=== PATIENT | female | born 1940 | race Caucasian/White ===

== ENCOUNTER → 2016-06-06 | Outpatient (CLI) | payer OTHER ==
--- NOTE | 2016-06-06 13:53 | MA ---
Screening Digital Mammogram With iCAD Analysis Clinical Indications: Routine screening. Technique: Standard cephalocaudal and mediolateral oblique projections were obtained. This examinatio n was processed by the iCAD computer aided detection system. Comparison: December 2011, March 2009, January 2008, January 2007 . Breast density: A; Fatty. Findings: CAD was reviewed. No masses, suspicious calcifications or other signs of malignancy are id entified. There has been no significant change in the appearance of either breast. Impression: Negative mammogram. BI-RADS 1. Recommendation: Routine mammographic screening in one year. [facility] will send a result letter to the patient. Negative mammography should not preclude additional workup of a clinically suspicious finding. The patient's information is entered into a reminder system with a target due date for her next mammo gram.
== END ==
LOC: FIMAGING 09:54
PROVIDERS: ATTEND Nurse Practitioner Family
DX: Z12.31 Encounter for screening mammogram for malignant neoplasm of breast (principal)
CPT/HCPCS: G0202

== ENCOUNTER 2017-09-19 15:35 | Inpatient (IN) | payer OTHER ==
[2017-09-19] MEDS ORDERED: NS 1,000 ML IV ONE (15:57)
--- NOTE | 2017-09-19 16:11 | EDPHY ---
H & P Stated Complaint: dx uti/increasing weakness Time Seen by Provider: 09/19/17 15:52 HPI/ROS: CHIEF COMPLAINT: Generalized weakness, urinary tract infection HISTORY OF PRESENT ILLNESS: 77-year-old female presents with generalized weakness and urinary tract infection. Onset of groin pain yesterday morning. The groin pain was moderate and did not change with urination. No dysuria or urinary frequency. She saw her primary care physician yesterday, who diagnosed urinary tract infection and placed her on Macrobid. She has taken 2 doses of Macrobid. The groin pain has resolved. Onset of vomiting last night and gradually increasing generalized weakness today. Associated with diffuse myalgias. No known fever. REVIEW OF SYSTEMS: complete 10 point ROS negative except at noted in the HPI - Personal History Current Tetanus/Diphtheria Vaccine: Yes Tetanus Vaccine Date: <10 YRS - Medical/Surgical History Hx Asthma: Yes Hx Chronic Respiratory Disease: No Hx Diabetes: No Hx Cardiac Disease: No Hx Renal Disease: No Hx Cirrhosis: No Hx Alcoholism: No Hx HIV/AIDS: No Hx Splenectomy or Spleen Trauma: No Other PMH: medical depression, extra heart beats. surgery tonsillectomy, left knee replacement, lumbar fusion, hysterectomy - Social History Smoking Status: Never smoked - Physical Exam Exam: General Appearance: alert, nontoxic-appearing Eyes: Pupils equal and round, no conjunctival injection ENT, Mouth: Mucous membranes moist Neck: Normal inspection Respiratory: Lungs are clear to auscultation Cardiovascular: Regular rate and rhythm Gastrointestinal: Abdomen is soft, left lower quadrant tenderness Neurological: A&O, nonfocal exam Skin: Warm and dry, no rash Extremities: Normal inspection Psychiatric: Mood and affect normal Constitutional: Initial Vital Signs Temperature (C) 36.6 C 09/19/17 15:40 Heart Rate 90 09/19/17 15:40 Respiratory Rate 18 09/19/17 15:40 Blood Pressure 92/65 L 09/19/17 15:40 O2 Sat (%) 95 09/19/17 15:40 O2 Delivery Mode Room Air Allergies/Adverse Reactions: Sulfa (Sulfonamide Antibiotics) Allergy (Unknown, Verified 09/19/17 15:36) Home Medications: Medication Instructions Recorded Atenolol [Tenormin 25 mg (*)] 25 mg PO HS 09/19/17 Diclofenac Sodium 1% [Voltaren Gel 1 ilene TP TID PRN 09/19/17 (*)] Ezetimibe [Zetia 10 MG (*)] 10 mg PO DAILY 09/19/17 Gemfibrozil [Lopid 600 MG (*)] 600 mg PO BIDAC 09/19/17 Nitrofurantoin Macrocrystal 100 mg PO BID 09/19/17 [Nitrofurantoin] Sertraline HCl [Zoloft 50mg (*)] 50 mg PO DAILY 09/19/17 buPROPion SR [Wellbutrin 100mg SR 100 mg PO DAILY 09/19/17 (*)] Medical Decision Making - Diagnostics Imaging Results: Imaging Impressions Abdomen/Pelvis CT 09/19/17 16:13 Impression: 1. Mild, uncomplicated acute sigmoid diverticulitis. 2. Nonobstructive cholelithiasis. Findings were communicated by telephone with Dr. VINCENT SMITH at 09/19/2017 17 :32 ED Course/Re-evaluation: This patient presents with left lower quadrant tenderness and generalized weakness. Previously diagnosed with urinary tract infection yesterday, on Macrobid. Old medical record reviewed and no prior urinalysis in our computer system. Given her clinical presentation, I am suspicious that she has acute diverticulitis. CT scan of the abdomen and pelvis ordered. IV normal saline 500 mL given because of dehydration and borderline hypotension. Does not meet SIRS criteria (positive criteria suspected infection and leukocytosis only), but HR borderline (90) at presentation. Lactate ordered and is 2.4. IVF per the sepsis protocol initiated. CT scan of the abdomen and pelvis read by the radiologist reveals sigmoid diverticulitis. Urinalysis is also consistent with urinary tract infection. Urine culture sent. Levaquin and Flagyl IV given. VS stable throughout. The hospitalist service was consulted for admission. Differential Diagnosis: Differential diagnosis includes though it is not limited to appendicitis, cholecystitis, diverticulitis, pyelonephritis, bowel perforation, small bowel obstruction. - Data Points Laboratory Results: Laboratory Results 09/19/17 16:00 09/19/17 16:00 09/19/17 09/19/17 09/19/17 16:32 16:00 16:00 WBC 25.45 10^3/uL H 10^3/uL (3.80-9.50) RBC 4.72 10^6/uL 10^6/uL (4.18-5.33) Hgb 14.4 g/dL g/dL (12.6-16.3) Hct 44.1 % % (38.0-47.0) MCV 93.4 fL fL (81.5-99.8) MCH 30.5 pg pg (27.9-34.1) MCHC 32.7 g/dL g/dL (32.4-36.7) RDW 15.7 % H % (11.5-15.2) Plt Count 224 10^3/uL 10^3/uL (150-400) MPV 10.2 fL fL (8.7-11.7) Neut % (Auto) Not Reported Lymph % (Auto) Not Reported Mora % (Auto) Not Reported Eos % (Auto) Not Reported Baso % (Auto) Not Reported Nucleat RBC Rel Count Not Reported Absolute Neuts (auto) Not Reported Absolute Lymphs (auto) Not Reported Absolute Monos (auto) Not Reported Absolute Eos (auto) Not Reported Absolute Basos (auto) Not Reported Absolute Nucleated RBC Not Reported Immature Gran % Not Reported Seg Neutrophils % 72.5 % % Band Neutrophils % 20.0 % % Lymphocytes % 3.5 % % Monocytes % 3.0 % % Eosinophils % 0 % % Basophils % 0 % % Metamyelocytes % 1.0 % % Myelocytes % 0 % % Promyelocytes % 0 % % Blast Cells % 0 % % Immature Gran # Not Reported Absolute Seg Neuts 18.45 10^/uL H 10^/uL (1.70-6.50) Absolute Band Neuts 5.09 10^3/uL H 10^3/uL (0.00-0.70) Absolute Lymphocytes 0.89 10^3/uL L 10^3/uL (1.00-3.00) Absolute Monocytes 0.76 10^3/uL 10^3/uL (0.30-0.80) Absolute Eosinophils 0.00 10^3/uL L 10^3/uL (0.03-0.40) Absolute Basophils 0.00 10^3/uL L 10^3/uL (0.02-0.10) Absolute Metamyelocyte 0.25 10^3/mL H 10^3/mL (0.00-0.00) Absolute Myelocytes 0.00 10^3/mL 10^3/mL (0.00-0.00) Absolute Promyelocytes 0.00 10^3/uL 10^3/uL (0.00-0.00) Absolute Plasma Cells 0.00 10^3/uL 10^3/uL (0.00-0.00) Absolute Blast Cells 0.00 10^3/uL 10^3/uL (0.00-0.00) Plasma Cells % 0 % % Platelet Estimate ADEQUATE (ADEQ) VBG Lactic Acid Sodium 138 mEq/L mEq/L (135-145) Potassium 4.9 mEq/L mEq/L (3.3-5.0) Chloride 106 mEq/L mEq/L (97-110) Carbon Dioxide 17 mEq/l L mEq/l (22-31) Anion Gap 15 mEq/L mEq/L (8-16) BUN 48 mg/dL H mg/dL (7-23) Creatinine 1.8 mg/dL H mg/dL (0.6-1.0) Estimated GFR 27 Glucose 123 mg/dL H mg/dL (70-100) Calcium 8.6 mg/dL mg/dL (8.5-10.4) Urine Color KATHERYN Urine Appearance TURBID Urine pH 5.0 (5.0-7.5) Ur Specific [place] 1.012 (1.002-1.030) Urine Protein 2+ H (NEGATIVE) Urine Ketones NEGATIVE (NEGATIVE) Urine Blood 2+ H (NEGATIVE) Urine Nitrate POSITIVE H (NEGATIVE) Urine Bilirubin NEGATIVE (NEGATIVE) Urine Urobilinogen NEGATIVE EU EU (0.2-1.0) Ur Leukocyte Esterase 3+ H (NEGATIVE) Urine RBC 25-50 /hpf H /hpf (0-3) Urine WBC 50-182 /hpf H /hpf (0-3) Ur Epithelial Cells NONE SEEN /lpf /lpf (NONE-1+) Urine Bacteria 3+ /hpf H /hpf (NONE SEEN) Urine Glucose NEGATIVE (NEGATIVE) 09/19/17 16:00 WBC RBC Hgb Hct MCV MCH MCHC RDW Plt Count MPV Neut % (Auto) Lymph % (Auto) Mora % (Auto) Eos % (Auto) Baso % (Auto) Nucleat RBC Rel Count Absolute Neuts (auto) Absolute Lymphs (auto) Absolute Monos (auto) Absolute Eos (auto) Absolute Basos (auto) Absolute Nucleated RBC Immature Gran % Seg Neutrophils % Band Neutrophils % Lymphocytes % Monocytes % Eosinophils % Basophils % Metamyelocytes % Myelocytes % Promyelocytes % Blast Cells % Immature Gran # Absolute Seg Neuts Absolute Band Neuts Absolute Lymphocytes Absolute Monocytes Absolute Eosinophils Absolute Basophils Absolute Metamyelocyte Absolute Myelocytes Absolute Promyelocytes Absolute Plasma Cells Absolute Blast Cells Plasma Cells % Platelet Estimate VBG Lactic Acid 2.3 mmol/L H mmol/L (0.7-2.1) Sodium Potassium Chloride Carbon Dioxide Anion Gap BUN Creatinine Estimated GFR Glucose Calcium Urine Color Urine Appearance Urine pH Ur Specific [place] Urine Protein Urine Ketones Urine Blood Urine Nitrate Urine Bilirubin Urine Urobilinogen Ur Leukocyte Esterase Urine RBC Urine WBC Ur Epithelial Cells Urine Bacteria Urine Glucose Medications Given: Acetaminophen (Tylenol) 650 mg PO Q4HRS PRN PRN Reason: Pain, Mild/Fever, Can Take PO Stop: 03/18/18 17:56 Last Admin: 09/19/17 19:52 Dose: 650 mg Metronidazole/Sodium Chloride (Flagyl 500 Mg (Premix)) 100 mls @ 100 mls/hr IV Q8HRS ALVARO PRN Reason: Protocol Stop: 10/19/17 21:59 Last Admin: 09/19/17 21:06 Dose: 100 mls Sodium Chloride (Ns) 1,000 mls @ 150 mls/hr IV CONT ALVARO Stop: 03/18/18 17:59 Last Admin: 09/19/17 21:03 Dose: 700 mls Discontinued Medications Sodium Chloride (Ns) 1,000 mls @ 0 mls/hr IV ONCE ONE; Wide Open PRN Reason: Protocol Stop: 09/19/17 15:58 Last Admin: 09/19/17 16:19 Dose: 1,000 mls Sodium Chloride (Ns) 2,300 mls @ 383.3333 mls/hr 30 ml/kg infuse over 6 hr ( 2300 ml) IV EDNOW ONE PRN Reason: Protocol Stop: 09/19/17 22:42 Last Admin: 09/19/17 16:54 Dose: 2,300 mls Levofloxacin/Dextrose (Levaquin 750 Mg (Premix)) 150 mls @ 100 mls/hr IV EDNOW ONE PRN Reason: Protocol Stop: 09/19/17 19:03 Last Admin: 09/19/17 18:50 Dose: 150 mls Metronidazole/Sodium Chloride (Flagyl 500 Mg (Premix)) 100 mls @ 100 mls/hr IV EDNOW ONE PRN Reason: Protocol Stop: 09/19/17 18:33 Last Admin: 09/19/17 17:42 Dose: 100 mls Departure - Departure Disposition: [facility] Clinical Impression: Diverticulitis Condition: Fair
[2017-09-19 16:19] LABS: PLATELET COUNT 224 10^3/uL (150-400)
[2017-09-19] MEDS ORDERED: NS 2,300 ML IV ONE (16:43)
[2017-09-19] MEDS ORDERED: IOPAMIDOL (ISOVUE-300) 100 ML BTL ONE (16:47)
[2017-09-19] MEDS ORDERED: ONDANSETRON 4 MG/2 ML VIAL IVP PRN (17:57)
[2017-09-19] MEDS ORDERED: PROMETHAZINE HCL 25 MG TAB PO PRN (17:57)
[2017-09-19] MEDS ORDERED: PROMETHAZINE HCL 25 MG/ML INJ IVP PRN (17:57)
[2017-09-19] MEDS ORDERED: ONDANSETRON DISINTEGRATING 4 MG TAB PO PRN (17:57)
[2017-09-19] MEDS ORDERED: ACETAMINOPHEN 325 MG TAB PO PRN (17:57)
[2017-09-19] MEDS ORDERED: HYDROmorphONE/DILAUDID 1 MG/ML INJ IVP PRN (17:57)
[2017-09-19] MEDS: NS 1,000 ML IV SCH (21:03)
--- NOTE | 2017-09-19 23:01 | PDGENHP ---
History and Physical - Chief Complaint Acute abdominal pain - History of Present Illness Primary care provider: Dr. Kenia Goldstein Primary orthopedist: Dr. Curry HPI: 77-year-old female presenting with acute abdominal pain characterized as sharp, located in the left lower quadrant with associated vomiting, subjective fever, generalized weakness, chills, diffuse myalgias, with onset of symptoms 3 days prior to this presentation and duration persistent worsening thereafter. The patient reports that she sought medical attention her primary care provider office, had a urinalysis and urine culture obtained, and was prescribed Macrobid. She continued to experience her symptoms despite taking 2 days of the Macrobid. When she presented back at her primary care provider office for reassessment, they sent her immediately to the emergency department. Patient reports that she has never experienced similar symptoms in her life. She denies any urinary symptoms. She reports that the pain has been significantly alleviated by the Dilaudid received in the emergency department. She denies any recent change in her bowel movements. History Information - Allergies/Home Medication List Allergies/Adverse Reactions: Sulfa (Sulfonamide Antibiotics) Allergy (Unknown, Verified 09/19/17 15:36) Home Medications: Atenolol [Tenormin 25 mg (*)] 25 mg PO HS 09/19/17 [Last Taken 09/18/17] Diclofenac Sodium 1% [Voltaren Gel (*)] 1 ilene TP TID PRN 09/19/17 [Last Taken Unknown] Ezetimibe [Zetia 10 MG (*)] 10 mg PO DAILY 09/19/17 [Last Taken 09/18/17] Gemfibrozil [Lopid 600 MG (*)] 600 mg PO BIDAC 09/19/17 [Last Taken 09/18/17] Nitrofurantoin Macrocrystal [Nitrofurantoin] 100 mg PO BID 09/19/17 [Last Taken 09/18/17] Sertraline HCl [Zoloft 50mg (*)] 50 mg PO DAILY 09/19/17 [Last Taken 09/18/17] buPROPion SR [Wellbutrin 100mg SR (*)] 100 mg PO DAILY 09/19/17 [Last Taken ] I have personally reviewed and updated: family history, medical history, social history, surgical history - Past Medical History no pertinent PMH - Surgical History Additional surgical history: Left knee arthroscopy in 2010. L3-L5 lumbar surgery. Most recent colonoscopy 10 years ago - Family History Additional family history: No family history of colon cancer, no family history of venous thromboembolism - Social History Smoking Status: Never smoked Alcohol Use: None Drug Use: None Additional social history: Independent in her ADLs Review of Systems Review of Systems: ROS: 10pt was reviewed & negative except for what was stated in HPI & below Constitutional: Reports: chills, fever, malaise, weakness Gastrointestinal: Reports: vomitting, abdominal pain Muscolosketal: Reports: muscle pain Physical Exam Physical Exam: Temp Pulse Resp BP Pulse Ox 36.6 C 114 H 18 105/54 L 93 09/19/17 22:28 09/19/17 22:28 09/19/17 22:28 09/19/17 22:28 09/19/17 22:28 Constitutional: no apparent distress, appears nourished, not in pain, uncomfortable Eyes: PERRL, anicteric sclera, EOMI Ears, Nose, Mouth, Throat: moist mucous membranes, hearing normal, ears appear normal, no oral mucosal ulcers Cardiovascular: regular rate and rhythym, no murmur, rub, or gallop, No edema Respiratory: no respiratory distress, no rales or rhonchi, clear to auscultation Gastrointestinal: normoactive bowel sounds, tenderness (Left lower quadrant), other (Soft abdomen), No guarding, No distension Skin: warm, No abrasion, No rash Neurologic: AAOx3, sensation intact bilaterally, No weakness Psychiatric: interacting appropriately, not anxious, not encephalopathic, thought process linear Lab Data & Imaging Review 09/19/17 16:00 09/19/17 16:00 WBC 25.45 10^3/uL (3.80-9.50) H 09/19/17 16:00 RBC 4.72 10^6/uL (4.18-5.33) 09/19/17 16:00 Hgb 14.4 g/dL (12.6-16.3) 09/19/17 16:00 Hct 44.1 % (38.0-47.0) 09/19/17 16:00 MCV 93.4 fL (81.5-99.8) 09/19/17 16:00 MCH 30.5 pg (27.9-34.1) 09/19/17 16:00 MCHC 32.7 g/dL (32.4-36.7) 09/19/17 16:00 RDW 15.7 % (11.5-15.2) H 09/19/17 16:00 Plt Count 224 10^3/uL (150-400) 09/19/17 16:00 MPV 10.2 fL (8.7-11.7) 09/19/17 16:00 Neut % (Auto) Not Reported 09/19/17 16:00 Lymph % (Auto) Not Reported 09/19/17 16:00 Nolan % (Auto) Not Reported 09/19/17 16:00 Eos % (Auto) Not Reported 09/19/17 16:00 Baso % (Auto) Not Reported 09/19/17 16:00 Nucleat RBC Rel Count Not Reported 09/19/17 16:00 Absolute Neuts (auto) Not Reported 09/19/17 16:00 Absolute Lymphs (auto) Not Reported 09/19/17 16:00 Absolute Monos (auto) Not Reported 09/19/17 16:00 Absolute Eos (auto) Not Reported 09/19/17 16:00 Absolute Basos (auto) Not Reported 09/19/17 16:00 Absolute Nucleated RBC Not Reported 09/19/17 16:00 Immature Gran % Not Reported 09/19/17 16:00 Seg Neutrophils % 72.5 % 09/19/17 16:00 Band Neutrophils % 20.0 % 09/19/17 16:00 Lymphocytes % 3.5 % 09/19/17 16:00 Monocytes % 3.0 % 09/19/17 16:00 Eosinophils % 0 % 09/19/17 16:00 Basophils % 0 % 09/19/17 16:00 Metamyelocytes % 1.0 % 09/19/17 16:00 Myelocytes % 0 % 09/19/17 16:00 Promyelocytes % 0 % 09/19/17 16:00 Blast Cells % 0 % 09/19/17 16:00 Immature Gran # Not Reported 09/19/17 16:00 Absolute Seg Neuts 18.45 10^/uL (1.70-6.50) H 09/19/17 16:00 Absolute Band Neuts 5.09 10^3/uL (0.00-0.70) H 09/19/17 16:00 Absolute Lymphocytes 0.89 10^3/uL (1.00-3.00) L 09/19/17 16:00 Absolute Monocytes 0.76 10^3/uL (0.30-0.80) 09/19/17 16:00 Absolute Eosinophils 0.00 10^3/uL (0.03-0.40) L 09/19/17 16:00 Absolute Basophils 0.00 10^3/uL (0.02-0.10) L 09/19/17 16:00 Absolute Metamyelocyte 0.25 10^3/mL (0.00-0.00) H 09/19/17 16:00 Absolute Myelocytes 0.00 10^3/mL (0.00-0.00) 09/19/17 16:00 Absolute Promyelocytes 0.00 10^3/uL (0.00-0.00) 09/19/17 16:00 Absolute Plasma Cells 0.00 10^3/uL (0.00-0.00) 09/19/17 16:00 Absolute Blast Cells 0.00 10^3/uL (0.00-0.00) 09/19/17 16:00 Plasma Cells % 0 % 09/19/17 16:00 Platelet Estimate ADEQUATE (ADEQ) 09/19/17 16:00 VBG Lactic Acid 1.1 mmol/L (0.7-2.1) 09/19/17 18:22 Sodium 138 mEq/L (135-145) 09/19/17 16:00 Potassium 4.9 mEq/L (3.3-5.0) 09/19/17 16:00 Chloride 106 mEq/L (97-110) 09/19/17 16:00 Carbon Dioxide 17 mEq/l (22-31) L 09/19/17 16:00 Anion Gap 15 mEq/L (8-16) 09/19/17 16:00 BUN 48 mg/dL (7-23) H 09/19/17 16:00 Creatinine 1.8 mg/dL (0.6-1.0) H 09/19/17 16:00 Estimated GFR 27 09/19/17 16:00 Glucose 123 mg/dL (70-100) H 09/19/17 16:00 Calcium 8.6 mg/dL (8.5-10.4) 09/19/17 16:00 Urine Color KATHERYN 09/19/17 16:32 Urine Appearance TURBID 09/19/17 16:32 Urine pH 5.0 (5.0-7.5) 09/19/17 16:32 Ur Specific [place] 1.012 (1.002-1.030) 09/19/17 16:32 Urine Protein 2+ (NEGATIVE) H 09/19/17 16:32 Urine Ketones NEGATIVE (NEGATIVE) 09/19/17 16:32 Urine Blood 2+ (NEGATIVE) H 09/19/17 16:32 Urine Nitrate POSITIVE (NEGATIVE) H 09/19/17 16:32 Urine Bilirubin NEGATIVE (NEGATIVE) 09/19/17 16:32 Urine Urobilinogen NEGATIVE EU (0.2-1.0) 09/19/17 16:32 Ur Leukocyte Esterase 3+ (NEGATIVE) H 09/19/17 16:32 Urine RBC 25-50 /hpf (0-3) H 09/19/17 16:32 Urine WBC 50-182 /hpf (0-3) H 09/19/17 16:32 Ur Epithelial Cells NONE SEEN /lpf (NONE-1+) 09/19/17 16:32 Urine Bacteria 3+ /hpf (NONE SEEN) H 09/19/17 16:32 Urine Glucose NEGATIVE (NEGATIVE) 09/19/17 16:32 Visualized and Interpreted imaging results: Yes Interpretation: CT of the abdomen demonstrating sigmoid diverticulitis without any perforation Assessment & Plan Assessment: 77-year-old female presenting with acute diverticulitis Plan: 1. Acute diverticulitis. New problem this provider, further workup indicated. Evidenced by sigmoid diverticulitis on CT scan plus leukocytosis plus lactic acidosis plus abdominal symptoms, 1st presentation for patient -get GI PCR panel to rule out C diff as a potentiate and cause given her recent Macrobid exposure -discussed with Dr. Belem Barreto, she has reported to me that the patient will receive IV levofloxacin and metronidazole in the emergency department, continue -continue with IV fluids, bowel rest, sips and chips only -advance diet to clear liquids tomorrow if hungry and improving -supportive care with IV and oral pain medications, antiemetics -recommend outpatient follow up with Gastroenterology for colonoscopy after acute episode resolved -currently does not have a surgical abdomen, if patient's condition worsens, consult General surgery 2. Metabolic acidosis. Acute, secondary to lactic acid, given IV fluids, monitor 3. Acute kidney injury. Secondary to hypovolemia in the setting of above, no previous history of renal impairment, give normal saline, monitor strict I&Os, monitor daily creatinine level 4. Hypotension. Acute, secondary to hypovolemia in the setting of above, resolved with IV fluids 5. Suspected asymptomatic bacturia. Positive urinalysis, urine culture sent, results currently pending, no urinary symptoms -suspect the patient's abdominal pain was actually secondary to her acute diverticulitis and not a urinary tract infection -that being said, the patient is concomitant Keanu covered with antibiotic for above Diet. NPO, sips and chips, IV fluids Prophylaxis. High risk patient, heparin subcu Code. Full per patient, is MD HARDIN Disposition. Anticipated discharge uncertain this time, anticipated length stay is greater than 48 hr for reasonable medical necessity including acute diverticulitis complicated by high risk comorbid acute kidney injury, metabolic acidosis.
[2017-09-20] MEDS ORDERED: MELATONIN 3 MG TAB PO PRN (00:53)
[2017-09-20] MEDS: NS 1,000 ML IV SCH (02:14)
[2017-09-20] MEDS ORDERED: NS BOLUS 500 ML IV ONE (05:00)
[2017-09-20] MEDS: HEPARIN 5,000 UNIT/0.5 ML INJ SC SCH ×3 (05:25→21:47)
[2017-09-20 06:48] LABS: PLATELET COUNT 155 10^3/uL (150-400)
[2017-09-20] MEDS ORDERED: ALTEPLASE 2 MG VIAL IVP PRN (08:57)
[2017-09-20] MEDS ORDERED: 1/2 NS 1,000 ML IV SCH (09:00)
--- NOTE | 2017-09-20 09:03 | HOSPPROG ---
Hospitalist Progress Note Assessment/Plan: # sigmoid diverticulitis - abd exam reassuring today; low threshold to involve surgery - cont rocephin, flagyl - GI panel pending # e. coli bacteremia - suspect d/t diverticulitis; also has bacteruria however - change levaquin to rocephin pending e. coli sens - cont flagyl - will consult ID # severe sepsis (fever at home, leuk) d/t diverticulitis with SHAQUILLE - still with borderline BPs - will place PICC in case she worsens # SHAQUILLE - likely ATN given her lack of response to IVF - cont IVF; follow her lytes closely # NAGMA - likely d/t SHAQUILLE; - recheck lactate - change to 1/2 NS - recheck BMP at noon - if worsening will likely consult renal and start bicarb gtt # depr - zoloft, wellbutrin # HLD - gemfibrozil, ezitimibe # dvt ppx - SQH Subjective: slightly confused; abd pain better Objective: Vital Signs Temp Pulse Resp BP Pulse Ox 36.4 C 91 28 H 104/67 95 09/20/17 07:16 09/20/17 07:16 09/20/17 07:16 09/20/17 07:16 09/20/17 07:16 Laboratory Results 09/20/17 04:20 09/20/17 04:20 09/19/17 09/20/17 09/21/17 05:59 05:59 05:59 Intake Total [address] reviewed - Physical Exam Constitutional: uncomfortable Cardiovascular: regular rate and rhythym, no murmur, rub, or gallop Respiratory: no respiratory distress, no rales or rhonchi, clear to auscultation Gastrointestinal: soft, non-tender abdomen, no palpable masses, No guarding, No rebound, No distension ICD10 Worksheet Patient Problems: Problems Problem Status Onset Diverticulitis Acute
[2017-09-20] MEDS: GEMFIBROZIL 600 MG TAB PO SCH (10:05)
[2017-09-20] MEDS: EZETIMIBE 10 MG TAB PO SCH (10:06)
[2017-09-20] MEDS: buPROPion SR 100 MG TAB PO SCH (10:07)
[2017-09-20] MEDS: SERTRALINE HCL 50 MG TAB PO SCH (10:08)
--- NOTE | 2017-09-20 10:17 | ASMTCASEMG ---
Living Arrangements What is your living Answers: With Spouse arrangement? Who do you live with? Type Of Residence What kind of residence do Answers: House you live in? Discharge Plan Comments Coordination Status Comments Notes: Pt is a 77 y/o female admitted for diverticulitis. Needs are TBD at this time. Therapies have been ordered and pending. CM to follow. Plan: TBD Date Signed: 09/20/2017 10:16 AM Electronically Signed By:GUSTAVO Carrillo
--- NOTE | 2017-09-20 10:34 | PDMN ---
Medical Necessity Medical necessity: Pt meets IP criteria per MD; est los >2 mn for eval/tx of acute diverticulitis w/metabolic acidosis, acute kidney injury, hypotension & suspected bacturia; admit for further workup/monitoring, IV abx, IVFs, IV pain meds & therapies; per H&P & order 09/19/17
[2017-09-20] MEDS ORDERED: SODIUM BICARBONATE 75 MEQ in 1/2 NS 1,000 ML IV SCH (13:45)
[2017-09-20] MEDS ORDERED: SODIUM BICARBONATE 150 MEQ in D5W 1,000 ML IV SCH (18:09)
--- NOTE | 2017-09-20 18:12 | PDCONSULT ---
[employer] Teacher Note: NEPHROLOGY CONSULT: CC: abdominal pain, fevers/chills, N/V HPI: 77 yo female with PMH significant for hypertension admitted with severe sepsis c/b SHAQUILLE. Nephrology consulted for evaluation and management of SHAQUILLE. 3 days prior to admission, patient developed acute onset of LLQ abdominal pain, N/V, subjective fevers/chills, generalized weakness, and malaise. Patient presented to PCP who checked UA and started Macrobid. Patient proceeded to get worse, re-presented to PCP and was sent to ED. Patient also reports some shortness of breath at home, along with bilateral flank pain (R>L), lightheadedness with standing, L ear pain, and headache in addition to symptoms described above. She had decreased PO intake and decreased urine output. She denies dysuria, chest pain, diarrhea, and blood in stools. She reports taking a total of 2 Advil over the past 2 days. She is not on diuretics or HEBER/ARB. She denies taking herbal medications. Patient hypotensive down to 81/59 at lowest. Blood cultures were sent, now growing GNR. UA consistent with UTI and urine culture growing GNR. CT abd/ pelvis without contrast consistent with acute sigmoid diverticulitis, kidneys equal size with mild atrophy L cortical cyst. Patient started on antibiotics and given IVF (3L overnight on the night of admission). Patient initially oliguric, but has made 800mL urine so far today. Patient currently reports ongoing mild shortness of breath. Patient feels it might be slightly worse than on admission, but her nurse reports that she looks less short of breath than on admission. Overall, today she feels much better than on admission. PMH: HTN, denies personal history of renal disease Allergies: Allergy/AdvReac Type Severity Reaction Status Date / Time Sulfa (Sulfonamide Allergy Unknown Verified 09/19/17 15:36 Antibiotics) Home Medications: Atenolol [Tenormin 25 mg (*)] 25 mg PO HS 09/19/17 [Last Taken 09/18/17] Diclofenac Sodium 1% [Voltaren Gel (*)] 1 ilene TP TID PRN 09/19/17 [Last Taken Unknown] Ezetimibe [Zetia 10 MG (*)] 10 mg PO DAILY 09/19/17 [Last Taken 09/18/17] Gemfibrozil [Lopid 600 MG (*)] 600 mg PO BIDAC 09/19/17 [Last Taken 09/18/17] Nitrofurantoin Macrocrystal [Nitrofurantoin] 100 mg PO BID 09/19/17 [Last Taken 09/18/17] Sertraline HCl [Zoloft 50mg (*)] 50 mg PO DAILY 09/19/17 [Last Taken 09/18/17] buPROPion SR [Wellbutrin 100mg SR (*)] 100 mg PO DAILY 09/19/17 [Last Taken ] Social History: non-smoker, very rare alcohol Family History: ?father with kidney disease Temp Pulse Resp BP Pulse Ox 36.3 C 82 16 127/80 H 96 09/20/17 15:30 09/20/17 15:30 09/20/17 15:30 09/20/17 15:30 09/20/17 15:30 Exam: General: AAO x 3, ill-appearing Eyes: anicteric sclera, no conjunctival injection HEENT: MMM, no gross oral lesions Pulm: Few rales at left base, mildly tachypneic CV: NRRR, no g/m/r, no LE edema Abd: soft, tenderness to LLQ, mild L CVA tenderness, no rebound tenderness of guarding : no fishman MSK: normal muscle mass, moves all extremities Skin: No rashes or bruises on exposed skin Psych: pleasant, answers questions appropriately Neuro: a little drowsy, CN II-XII grossly intact Laboratory Results 09/20/17 04:20 09/20/17 17:15 09/20/17 09/20/17 09/20/17 17:15 12:06 09:25 WBC RBC Hgb Hct MCV MCH MCHC RDW Plt Count MPV Neut % (Auto) Lymph % (Auto) Overton % (Auto) Eos % (Auto) Baso % (Auto) Nucleat RBC Rel Count Absolute Neuts (auto) Absolute Lymphs (auto) Absolute Monos (auto) Absolute Eos (auto) Absolute Basos (auto) Absolute Nucleated RBC Immature Gran % Seg Neutrophils % Band Neutrophils % Lymphocytes % Monocytes % Eosinophils % Basophils % Metamyelocytes % Myelocytes % Promyelocytes % Blast Cells % Immature Gran # Absolute Seg Neuts Absolute Band Neuts Absolute Lymphocytes Absolute Monocytes Absolute Eosinophils Absolute Basophils Absolute Metamyelocyte Absolute Myelocytes Absolute Promyelocytes Absolute Plasma Cells Absolute Blast Cells Plasma Cells % Toxic Granulation Toxic Vacuolation Platelet Estimate Polychromasia Microcytic Cells Spherocytes Echinocytes Smear Review By VBG Lactic Acid 2.2 mmol/L H mmol/L (0.7-2.1) Sodium 140 mEq/L mEq/L 141 mEq/L mEq/L (135-145) (135-145) Potassium 4.5 mEq/L mEq/L 5.0 mEq/L mEq/L (3.3-5.0) (3.3-5.0) Chloride 114 mEq/L H mEq/L 115 mEq/L H mEq/L (97-110) (97-110) Carbon Dioxide 16 mEq/l L mEq/l 14 mEq/l L mEq/l (22-31) (22-31) Anion Gap 10 mEq/L mEq/L 12 mEq/L mEq/L (8-16) (8-16) BUN 50 mg/dL H mg/dL 48 mg/dL H mg/dL (7-23) (7-23) Creatinine 2.0 mg/dL H mg/dL 2.0 mg/dL H mg/dL (0.6-1.0) (0.6-1.0) Estimated GFR 24 24 Glucose 64 mg/dL L mg/dL 70 mg/dL mg/dL (70-100) (70-100) Calcium 7.2 mg/dL L mg/dL 7.0 mg/dL L mg/dL (8.5-10.4) (8.5-10.4) 09/20/17 04:20 WBC 20.86 10^3/uL H 10^3/uL (3.80-9.50) RBC 3.77 10^6/uL L 10^6/uL (4.18-5.33) Hgb 11.5 g/dL L g/dL (12.6-16.3) Hct 35.2 % L % (38.0-47.0) MCV 93.4 fL fL (81.5-99.8) MCH 30.5 pg pg (27.9-34.1) MCHC 32.7 g/dL g/dL (32.4-36.7) RDW 15.8 % H % (11.5-15.2) Plt Count 155 10^3/uL 10^3/uL (150-400) MPV 10.4 fL fL (8.7-11.7) Neut % (Auto) Not Reported Lymph % (Auto) Not Reported Overton % (Auto) Not Reported Eos % (Auto) Not Reported Baso % (Auto) Not Reported Nucleat RBC Rel Count Not Reported Absolute Neuts (auto) Not Reported Absolute Lymphs (auto) Not Reported Absolute Monos (auto) Not Reported Absolute Eos (auto) Not Reported Absolute Basos (auto) Not Reported Absolute Nucleated RBC Not Reported Immature Gran % Not Reported Seg Neutrophils % 47.0 % % Band Neutrophils % 49.0 % % Lymphocytes % 1.0 % % Monocytes % 0 % % Eosinophils % 1.0 % % Basophils % 0 % % Metamyelocytes % 2.0 % % Myelocytes % 0 % % Promyelocytes % 0 % % Blast Cells % 0 % % Immature Gran # Not Reported Absolute Seg Neuts 9.80 10^/uL H 10^/uL (1.70-6.50) Absolute Band Neuts 10.22 10^3/uL H 10^3/uL (0.00-0.70) Absolute Lymphocytes 0.21 10^3/uL L 10^3/uL (1.00-3.00) Absolute Monocytes 0.00 10^3/uL L 10^3/uL (0.30-0.80) Absolute Eosinophils 0.21 10^3/uL 10^3/uL (0.03-0.40) Absolute Basophils 0.00 10^3/uL L 10^3/uL (0.02-0.10) Absolute Metamyelocyte 0.42 10^3/mL H 10^3/mL (0.00-0.00) Absolute Myelocytes 0.00 10^3/mL 10^3/mL (0.00-0.00) Absolute Promyelocytes 0.00 10^3/uL 10^3/uL (0.00-0.00) Absolute Plasma Cells 0.00 10^3/uL 10^3/uL (0.00-0.00) Absolute Blast Cells 0.00 10^3/uL 10^3/uL (0.00-0.00) Plasma Cells % 0 % % Toxic Granulation PRESENT H Toxic Vacuolation PRESENT H Platelet Estimate DECREASED L (ADEQ) Polychromasia 1+ H Microcytic Cells 2+ H Spherocytes 1+ H Echinocytes 2+ H Smear Review By Colleen DAVENPORT MD [facility] MICROBIOLOGY 09/19/17 16:32 Urine,Clean Catch Urine Culture - Preliminary Escherichia Coli 09/20/17 03:20 Stool Gastrointestinal Tract Panel (PCR) - Final No Organism Detected 09/19/17 16:00 Blood Blood Culture - Preliminary Gram Negative Miles 09/19/17 16:18 Blood Blood Culture - Preliminary Gram Negative Miles 09/19/17 16:18 Blood Blood Panel (PCR) - Final Escherichia Coli Imaging Impressions PICC Line Insertion 09/20/17 08:57 Impression: 5 Lao double lumen peripherally inserted central catheter is ready to use. CT without contrast- acute sigmoid diverticulitis. kidneys equal size with mild atrophy L cortical cyst. Assessmemt: 77 yo female with PMH significant for hypertension admitted with severe sepsis 2/2 GNR bacteremia, likely pyelo (urine culture GNR), and diverticulitis c/b SHAQUILLE. Nephrology consulted for evaluation and management of SHAQUILLE, which is most likely pre-renal in setting of intravascular volume depletion /hypotension in setting of decreased PO intake and sepsis. # SHAQUILLE-initially oliguric, now non-oliguric. Urine output increased from 30mL overnight on admission --> 800mL for day shift on 09/20. Unknown baseline renal function but presumably <1.8 on admission. Some atrophy noted on imaging, so possibly some underlying CKD. Cr has plateaued and expect Cr to be downtrending by morning and do not expect patient to need dialysis. Given that BP has normalized, urine output has picked up, and that patient feels shortness of breath is maybe a little worse, will decrease rate of IVF to 50mL/hr of D5W with 3 amps of bicarb Recheck renal function panel in AM Do not expect that patient will need dialysis, though she agree to it if it were necessary # Shortness of breath- likely in part due to metabolic acidosis, though few rales at L base on exam CXR Decrease rate of IVF to 50mL overnight of D5W with 3 amps of bicarb, stop completely if SOB worsens # Hypotension- resolved with IVF, now normal Continue to hold home antihypertensive meds # Metabolic acidosis- 2/2 sepsis and SHAQUILLE --Increasing from 14 --> 16 with some bicarb-containing fluids Continue D5W with 3 amps of bicarb at 50mL/hr overnight. Scheduled to stop in AM. Expect that she will not need further bicarb-containing fluids by AM, as should continue to correct as renal function improves # Hyperkalemia- 2/2 SHAQUILLE. Improving. Down to 4.5 on 09/20 PM labs # GNR bateremia, likely GNR pyelo, and sigmoid diverticulitis- on abx, sepsis improving Thank you for allowing us to participate in the care of this patient. We will continue to follow along. I am on-call overnight. Please inform me of any changes in clinic status overnight. My cell phone number is [phone] Crystal Castro MD [facility]
[2017-09-20] MEDS: HYDROmorphONE/DILAUDID 2 MG TAB PO PRN (18:39)
--- NOTE | 2017-09-21 00:41 | GCON ---
[f rep st] CONSULTATION INPATIENT INFECTIOUS DISEASE CONSULTATION REFERRING PHYSICIAN: Dr. Sergei Manzo REASON FOR REFERRAL: Diverticulitis and sepsis. HISTORY OF PRESENT ILLNESS: Patient is a 77-year-old female who is admitted to [facility] through the emergency room on 09/19/2017. The patient was complaining of generalized weakness an d urinary tract infection which was evidenced by the onset of groin pain 24 hours prior. The patient denied any change in the pain with urination or dysuria or urinary frequency. The patient had seen a primary care physician the day before, who diagnosed her with a urinary tract infection and put her on Macrobid. During the course of the workup in the emergency room, the patient was noted to have a leukocytosis of 25,000. She had an abdominal and pelvic CT scan which revealed a mild uncomplicated sigmoid diverticulitis. This scan was without intravenous contrast. She was started on ceftriaxone and metronidazole. Overnight on the first night of admission, she had a relative hypotensive event which was consistent with sepsis. Her serum lactate levels which initially were 2.3 and had normaliz ed with fluid treatment yashira back to 2.2 early this morning. We are consulted to help guide her diag nosis and treatment. Currently, the patient is resting comfortably in her hospital bed. She is surr ounded by family members. According to the patient and her family, she is looking much better over t he last 6 to 8 hours than she did yesterday in the emergency room or even early this morning. The odilia guerrero's family says that she is much more cogent and making more sense and much more lively and inter active this afternoon. The patient denies any ongoing abdominal pain. She denies any bowel symptoms . PAST MEDICAL HISTORY: Essentially negative. PAST SURGICAL HISTORY: 1. Status post left knee arthroscopy. 2. Status post lumbar spine surgery. SOCIAL HISTORY: The patient denies any tobacco, alcohol or drug use. She is independent in her acti vities of daily living. FAMILY HISTORY: Reviewed but noncontributory. REVIEW OF SYSTEMS: Other than that detailed above in the history of present illness, a comprehensive 10-system review is negative. PHYSICAL EXAMINATION: VITAL SIGNS: Temperature maximum is 36.6, temperature current is 36.3, heart rate is 82, respiratory rate is 16, blood pressure is 127/80. GENERAL: The patient is a well-formed , well-nourished elderly female in no acute distress. She is not toxic in appearance. She is alert and oriented x3. She is pleasant in demeanor. HEENT: Normocephalic. Atraumatic. No scleral icter us. No drainage from the nares. Eyes, lids and conjunctivae are within normal limits. Pupils are e qual and round bilaterally. NECK: Supple. No meningismus. LUNGS: Clear to auscultation bilateral ly with good effort. HEART: Regular rate and rhythm. No murmur, rub, or gallop noted. The patient has trace peripheral edema bilaterally. ABDOMEN: Soft. Nontender. No masses noted. SKIN: Warm and dry to the touch. No rash or lesion seen. MUSCULOSKELETAL: No muscle belly tenderness is noted . No joint line effusion or arthritis seen. NEURO: Cranial nerves 2 through 12 seem to be intact. Peripheral sensation seems intact in extremities. LABORATORY DATA: Patient has a CBC dated 09/20/2017 shows a white blood cell count of 20.9, hemoglob in of 11.5, hematocrit of 35.2, and platelet count 155. Differential shows 47% mature segmented neut rophils with 49% band forms. Serum chemistries on 09/20/2017 show sodium of 141, potassium 5.0, chlo ride of 115, bicarbonate of 14, BUN of 48, and creatinine of 2.0. Urinalysis on 09/19/2017 shows 25 to 50 red cells and 50 to 182 white blood cells per high-power field. MICROBIOLOGIC DATA: Patient has blood cultures dated 09/19/2017, which are growing gram-negative silvia s in 2 out of 2 sets. The patient also has a urine clean catch, which is growing E coli. ASSESSMENT: Escherichia coli bacteremia probably secondary to diverticulitis. It is possible that t his could be secondary to a genitourinary infection, although without symptoms this is a harder diagn osis to make. A CT scan of her abdomen and pelvis does show some sigmoid thickening and diverticulos is with some stranding consistent with simple diverticulitis. Regardless of the source of the bacter emia, however, we will continue treating empirically with ceftriaxone and Flagyl. We will follow the sensitivity pattern for the Escherichia coli in her blood to make sure that it is treated well and c overed well by the ceftriaxone. However, clinically she is responding appropriately. PLAN: 1. Continue empiric ceftriaxone and Flagyl. 2. Follow up with sensitivity panel for blood isolate once available. 3. Follow fever curve and laboratory values. /[id number]/MODL
[2017-09-21] MEDS: HEPARIN 5,000 UNIT/0.5 ML INJ SC SCH ×3 (04:59→21:10)
[2017-09-21] MEDS: EZETIMIBE 10 MG TAB PO SCH (08:00)
[2017-09-21] MEDS: buPROPion SR 100 MG TAB PO SCH (08:00)
[2017-09-21] MEDS: SERTRALINE HCL 50 MG TAB PO SCH (08:00)
--- NOTE | 2017-09-21 08:19 | HOSPPROG ---
Hospitalist Progress Note Assessment/Plan: # sigmoid diverticulitis - - cont rocephin, flagyl # e. coli bacteremia - d/t UTI vs diverticulitis - cont rocephin, follow sensitivities # severe sepsis (fever at home, leuk) d/t diverticulitis with SHAQUILLE - PICC in place # SHAQUILLE - likely ATN given her lack of response to IVF and lack of improvement - no need for HD # NAGMA - better with bicarb in IVF # depr - zoloft, wellbutrin # HLD - gemfibrozil, ezitimibe # debility - PT/OT # dvt ppx - SQH Subjective: still very weak; not hungry Objective: Vital Signs Temp Pulse Resp BP Pulse Ox 36.6 C 88 20 130/85 H 95 09/21/17 07:07 09/21/17 07:07 09/21/17 07:07 09/21/17 07:07 09/21/17 07:07 Microbiology 09/20/17 03:20 Gastrointestinal Tract Panel (PCR) - Final Stool No Organism Detected Laboratory Results 09/20/17 04:20 09/21/17 05:00 09/20/17 09/21/17 09/22/17 05:59 05:59 05:59 Intake Total 3000 2895 Output Total 1300 Balance 3000 1595 high risk - Physical Exam Constitutional: other (tired appearing) Cardiovascular: regular rate and rhythym, no murmur, rub, or gallop Respiratory: no respiratory distress, no rales or rhonchi, clear to auscultation Gastrointestinal: normoactive bowel sounds, soft, non-tender abdomen ICD10 Worksheet Patient Problems: Problems Problem Status Onset Diverticulitis Acute
[2017-09-21] MEDS ORDERED: SODIUM BICARBONATE 150 MEQ in D5W 1,000 ML IV SCH (10:30)
--- NOTE | 2017-09-21 11:21 | PCMIDPN ---
Assessment/Plan: 1. E coli sepsis, likely urinary source: Continue ceftriaxone as is--urine culture shows susceptibility to ceftriaxone and the fluoroquinolones. Given complicated picture with significant leukocytosis and recent hypotension, will repeat blood cultures to ensure clearance of organism. 2. Mild sigmoid diverticulitis: Agree with addition of metronidazole for now. When the patient is able to take orals, will change to oral formulation. Subjective: Starting to feel better, although still very weak. No nausea or vomiting. No further rigors. PICC line placed yesterday as the patient became hypotensive. Thankfully, her blood pressure responded to fluids. Still has some mild left lower quadrant/suprapubic pain. No flank pain. Objective: Ceftriaxone 1 g IV daily day 2 Metronidazole 500 mg IV q.8 hours day 2 Afebrile Vital Signs Temp Pulse Resp BP Pulse Ox 36.6 C 88 20 130/85 H 95 09/21/17 07:07 09/21/17 07:07 09/21/17 07:07 09/21/17 07:07 09/21/17 07:07 Microbiology 09/20/17 03:20 Gastrointestinal Tract Panel (PCR) - Final Stool No Organism Detected Laboratory Results 09/20/17 04:20 09/21/17 05:00 09/20/17 09/21/17 09/22/17 05:59 05:59 05:59 Intake Total 3000 2895 Output Total 1300 Balance 3000 1595 Blood cultures September 19 with E coli all 4 bottles, susceptibilities are pending September 19 urine culture with E coli susceptible to ceftriaxone in the quinolones - Physical Exam General Appearance: no apparent distress, obese, other (Looks tired) EENT: other (Mucous membranes are dry, no thrush) Respiratory: lungs clear Cardiac/Chest: regular rate, rhythm Abdomen: other (Mild left lower quadrant/suprapubic tenderness) Skin: other (PICC line right upper extremity looks okay. Multiple ecchymoses scattered across her arms.) Neuro/Psych: oriented x 3 ICD10 Worksheet Patient Problems: Problems Problem Status Onset Diverticulitis Acute
--- NOTE | 2017-09-21 13:06 | SOAPPROG ---
SOAP Progress Note Assessment/Plan: Assessment: 77 yo female with PMH significant for hypertension admitted for urosepsis with SHAQUILLE. 1. SHAQUILLE- -baseline Cr 0.9 last year, up to 2.2 today -UA shows UTI, however may also have ATN given hypotension, sepsis, and possible NSAID use -making urine however will hold bicarb gtt for now and get urine sodium to assess volume -keep MAP>65, hold home antihypertensives -monitor I/Os, daily labs -no acute indication for HD, hopefully with peak and recover soon 2. SOB -may be slightly compensatory -CXR 09/20 showing some volume overload -will hold bicarb gtt 3. Metabolic acidosis- 2/2 sepsis and SHAQUILLE -hold gtt as above -bicarb 18 today, will consider oral tomorrow if worsening tomorrow 4. Hyperkalemia- 2/2 SHAQUILLE. Improving with UO. 5. GNR bacteremia -E.coli pyelonephritis and diverticulitis -on ceftriaxone, flagyl with ID following 6. Anemia -acute drop in Hb today -may be partially dilutional -monitor CBC closely 09/21/17 14:28 Subjective: Patient laying in bed. Admits to feeling short of breath. No chest pain. She is concerned about her kidneys. Objective: Vital Signs Temp Pulse Resp BP Pulse Ox 36.6 C 90 20 130/85 H 95 09/21/17 11:45 09/21/17 11:45 09/21/17 11:45 09/21/17 11:45 09/21/17 11:45 Microbiology 09/20/17 03:20 Gastrointestinal Tract Panel (PCR) - Final Stool No Organism Detected Laboratory Results 09/20/17 04:20 09/21/17 05:00 09/20/17 09/21/17 09/22/17 05:59 05:59 05:59 Intake Total 3000 2895 Output Total 1300 Balance 3000 1595 Physical Exam - Physical Exam General Appearance: WD/WN, alert, mild distress EENT: PERRL/EOMI, normal ENT inspection Neck: non-tender, full range of motion, supple Respiratory: chest non-tender, decreased breath sounds Cardiac/Chest: normal peripheral pulses, regular rate, rhythm Abdomen: normal bowel sounds, non-tender, soft Back: Normal inspection Skin: normal color, warm/dry Extremities: normal range of motion, non-tender Neuro/Psych: no motor/sensory deficits, alert, normal mood/affect ICD10 Worksheet Patient Problems: Problems Problem Status Onset Diverticulitis Acute
[2017-09-21] MEDS: HYDROmorphONE/DILAUDID 2 MG TAB PO PRN (21:23)
[2017-09-22] MEDS: HEPARIN 5,000 UNIT/0.5 ML INJ SC SCH ×3 (05:40→21:57)
[2017-09-22 07:13] LABS: PLATELET COUNT 116 10^3/uL (150-400)
--- NOTE | 2017-09-22 07:38 | SOAPPROG ---
SOAP Progress Note Assessment/Plan: Assessment: 1. SHAQUILLE- non-oliguric -baseline Cr 0.9 last year- peak at 2.2, now 1.8 -UA shows UTI, however may also have ATN given hypotension, sepsis, and possible NSAID use -continue to encourage po intake, expect Cr will continue to improve and avoid HD 2. SOB -may be slightly compensatory for met acidosis -CXR 09/20 showing some volume overload -symptoms better today, off IVF 3. Metabolic acidosis- 2/2 sepsis and SHAQUILLE -initially on bicarb gtt, now off-- bicarb stable 20 and just monitor for now 4. Hyperkalemia- 2/2 SHAQUILLE. Resolved. 5. GNR bacteremia -E.coli pyelonephritis and diverticulitis -on ceftriaxone, flagyl with ID following 6. 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 Feeling better. Denies n/v, abd pain, f/c, sob. Cr better 1.8 today. Objective: Vital Signs Temp Pulse Resp BP Pulse Ox 36.7 C 100 18 141/89 H 94 09/22/17 04:00 09/22/17 04:00 09/22/17 04:00 09/22/17 04:00 09/22/17 04:00 Laboratory Results 09/22/17 05:50 09/22/17 05:50 09/21/17 09/22/17 09/23/17 05:59 05:59 05:59 Intake Total 2895 950 Output Total 1300 1400 Balance 1595 -450 Physical Exam - Physical Exam General Appearance: alert, no apparent distress EENT: other (mmm) Neck: supple Respiratory: lungs clear Cardiac/Chest: regular rate, rhythm, other (no rub) Abdomen: non-tender, soft Skin: warm/dry Extremities: other (trace LE edema, SCDs on) Neuro/Psych: alert, oriented x 3 ICD10 Worksheet Patient Problems: Problems Problem Status Onset Diverticulitis Acute
--- NOTE | 2017-09-22 08:24 | HOSPPROG ---
Hospitalist Progress Note Assessment/Plan: #E coli bacteremia: due to urinary source. Cont IV CTX #Mild sigmoid diverticulitis: #SHAQUILLE: multifactorial with hypotension, UTI, NSAIDs. Cr down to 1.8 #Hyperkalemia: due to SHAQUILLE. Resolved #Metabolic acidosis: due to SHAQUILLE, improved #Deconditioning: PT/OT #Diet: regular #DVT ppx: SQH #Disp: cont inpatient admission for IV abx, PT Subjective: eating without issue. No N/V Objective: Vital Signs Temp Pulse Resp BP Pulse Ox 36.7 C 100 18 141/89 H 94 09/22/17 04:00 09/22/17 04:00 09/22/17 04:00 09/22/17 04:00 09/22/17 04:00 Laboratory Results 09/22/17 05:50 09/22/17 05:50 09/21/17 09/22/17 09/23/17 05:59 05:59 05:59 Intake Total 2895 950 Output Total 1300 1400 Balance 1595 -450 - Time Spent With Patient Time Spent with Patient: greater than 35 minutes Time Spent with Patient: Greater than 35 minutes spent on this patients care, greater than 50% of time spent counseling, educating, and coordinating care regarding the above mentioned plan. - Physical Exam Constitutional: no apparent distress Eyes: PERRL Ears, Nose, Mouth, Throat: moist mucous membranes Cardiovascular: regular rate and rhythym Respiratory: no respiratory distress Gastrointestinal: normoactive bowel sounds, soft, non-tender abdomen, tenderness (mild LLQ TTP), No guarding, No rebound Genitourinary: no bladder fullness Skin: warm Musculoskeletal: full muscle strength Neurologic: AAOx3, CN II-XII Intact Psychiatric: interacting appropriately ICD10 Worksheet Patient Problems: Problems Problem Status Onset Diverticulitis Acute
[2017-09-22] MEDS: SERTRALINE HCL 50 MG TAB PO SCH (09:45)
[2017-09-22] MEDS: EZETIMIBE 10 MG TAB PO SCH (09:45)
[2017-09-22] MEDS: buPROPion SR 100 MG TAB PO SCH (09:45)
[2017-09-22] MEDS: metroNIDAZOLE 500 MG TAB PO SCH ×2 (13:45→21:57)
--- NOTE | 2017-09-22 15:44 | ASMTCMCOM ---
CM Note CM Note Notes: Spoke w/RN, does not think that pt will need homecare but PT did recommend. CM was unable to meet with pt to discuss. If does not want hc, pt will dc home w/support of when medically stable. CM available for any changes. DC Plan: HC vs Independent Date Signed: 09/22/2017 03:44 PM Electronically Signed By:Gia Casey RN
--- NOTE | 2017-09-22 15:59 | PCMIDPN ---
Assessment/Plan: Assessment: Sepsis secondary to E coli either from a genitourinary or diverticulitis source. Patient is being treated with ceftriaxone. She had a mild episode hypotension yesterday. She had a PICC line placed and was fluid resuscitated. Today she seems to be doing clinically better again. We will continue the IV ceftriaxone and metronidazole and follow up clinically tomorrow. Plan: 1. Continue IV ceftriaxone and metronidazole. 2. Encourage p.o. And ambulation. 3. In the next 24-48 hours suspect we will be able to switch to oral fluoroquinolones for discharge. 09/22/17 15:56 Subjective: Patient is sitting up in her chair in her hospital room. Her family is visiting. She states she feels tired but is overall doing better. No new specific complaint. No fevers or chills. No rash. No diarrhea. Objective: Ceftriaxone # 3 Metronidazole # 3 Vital Signs Temp Pulse Resp BP Pulse Ox 36.7 C 92 18 155/99 H 97 09/22/17 15:24 09/22/17 15:24 09/22/17 15:24 09/22/17 15:24 09/22/17 15:24 Laboratory Results 09/22/17 05:50 09/22/17 05:50 09/21/17 09/22/17 09/23/17 05:59 05:59 05:59 Intake Total 2895 950 Output Total 1300 1400 650 Balance 1595 -450 -650 - Physical Exam General Appearance: WD/WN, alert, no apparent distress, non-toxic Respiratory: lungs clear, normal breath sounds, No respiratory distress Cardiac/Chest: regular rate, rhythm, No tachycardia Abdomen: non-tender, soft, No mass Skin: normal color, warm/dry, No rash Neuro/Psych: alert, normal mood/affect, oriented x 3 ICD10 Worksheet Patient Problems: Problems Problem Status Onset Diverticulitis Acute
[2017-09-23] MEDS: HEPARIN 5,000 UNIT/0.5 ML INJ SC SCH ×3 (05:45→21:43)
[2017-09-23] MEDS: metroNIDAZOLE 500 MG TAB PO SCH ×2 (05:45→14:17)
--- NOTE | 2017-09-23 08:16 | SOAPPROG ---
SOAP Progress Note Assessment/Plan: Assessment: 1. SHAQUILLE- non-oliguric -baseline Cr 0.9 last year- peak at 2.2, now improving to 1.4 today with good UOP -UA shows UTI, however may also have ATN given hypotension, sepsis, and possible NSAID use -continue to encourage po intake, expect Cr will continue to improve 3. Metabolic acidosis- 2/2 sepsis and SHAQUILLE -initially on bicarb gtt, now off-- bicarb stable 19 and just monitor for now 3. Hyperkalemia- 2/2 SHAQUILLE. Resolved. 4. 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 Able to ambulate with walker. Denies sob, abd pain. No fevers. Ate dinner ok. Objective: Vital Signs Temp Pulse Resp BP Pulse Ox 36.8 C 100 20 164/108 H 94 09/22/17 23:54 09/22/17 23:54 09/22/17 23:54 09/22/17 23:54 09/22/17 23:54 Laboratory Results 09/23/17 05:40 09/23/17 05:40 09/22/17 09/23/17 09/24/17 05:59 05:59 05:59 Intake Total 950 450 Output Total 1400 2650 Balance -450 -2200 Physical Exam - Physical Exam General Appearance: alert, no apparent distress EENT: other (mmm) Neck: supple Respiratory: lungs clear Cardiac/Chest: regular rate, rhythm, other (no rub) Skin: warm/dry Extremities: other (trace LE edema bilat) Neuro/Psych: alert, oriented x 3 ICD10 Worksheet Patient Problems: Problems Problem Status Onset Diverticulitis Acute
--- NOTE | 2017-09-23 08:22 | HOSPPROG ---
Hospitalist Progress Note Assessment/Plan: #E coli bacteremia: due to urinary source. Cont IV CTX #Mild sigmoid diverticulitis: change back to IV Flagyl per ID recs #Tachycardia: dry on exam. EKG (personally reviewed by me) shows sinus tachy. IVFs #SHAQUILLE: multifactorial with hypotension, UTI, NSAIDs. Cr down to 1.4, good UOP #Hyperkalemia: due to SHAQUILLE. Resolved #Metabolic acidosis: due to SHAQUILLE, stable #Deconditioning: PT/OT #Diet: regular #DVT ppx: SQH #Disp: cont inpatient admission for IV abx, PT Subjective: mild abd pain. Feels very weak today Objective: Vital Signs Temp Pulse Resp BP Pulse Ox 36.8 C 100 20 164/108 H 94 09/22/17 23:54 09/22/17 23:54 09/22/17 23:54 09/22/17 23:54 09/22/17 23:54 Laboratory Results 09/23/17 05:40 09/23/17 05:40 09/22/17 09/23/17 09/24/17 05:59 05:59 05:59 Intake Total 950 450 Output Total 1400 2650 Balance -450 -2200 - Time Spent With Patient Time Spent with Patient: greater than 25 minutes Time Spent with Patient: Greater than 25 minutes spent on this patients care, greater than 50% of time spent counseling, educating, and coordinating care regarding the above mentioned plan. - Physical Exam Constitutional: no apparent distress Eyes: PERRL Ears, Nose, Mouth, Throat: moist mucous membranes Cardiovascular: tachycardia (occasional extra beat, regular), No systolic murmur Respiratory: no respiratory distress Gastrointestinal: normoactive bowel sounds Genitourinary: no bladder fullness Skin: warm Musculoskeletal: full muscle strength Neurologic: AAOx3, CN II-XII Intact Psychiatric: interacting appropriately ICD10 Worksheet Patient Problems: Problems Problem Status Onset Diverticulitis Acute
[2017-09-23] MEDS: EZETIMIBE 10 MG TAB PO SCH (08:35)
[2017-09-23] MEDS: buPROPion SR 100 MG TAB PO SCH (08:35)
[2017-09-23] MEDS: SERTRALINE HCL 50 MG TAB PO SCH (08:35)
--- NOTE | 2017-09-23 09:19 | ASMTCMCOM ---
CM Note CM Note Notes: CM met w/ pt for dispo planning. OT has cleared pt to d/c without any needs. PT is recommending HC. Pt is agreeable to having HC. Pt reports feeling unsteady at times when she walks. Pt reports that she uses a walker to ambulate. Pt would like to use [facility]. [facility] is able to accept. CM confirmed pts address and phone number. CM informed pt that she would need to be home bound due to medicare requirements. Pt is agreeable to this plan. CM to follow. Plan: BC; PT Date Signed: 09/23/2017 09:19 AM Electronically Signed By:GUSTAVO Carrillo
--- NOTE | 2017-09-23 12:04 | PCMIDPN ---
Assessment/Plan: 1. E coli sepsis, likely urinary source: Continue ceftriaxone as is--urine culture shows susceptibility to ceftriaxone and the fluoroquinolones. Continue ceftriaxone for now pending clinical improvement. 2. Mild sigmoid diverticulitis: On treatment in the form of ceftriaxone and metronidazole. Query whether patient will be able to tolerate an oral quinolone (given her age) and oral metronidazole as an outpatient. For now, continue IV therapy given sluggish clinical improvement. The patient still has some mild abdominal discomfort, but her white blood cell count is down, and she is afebrile. If she continues to have the discomfort, told her that we would proceed with a repeat CT scan of the abdomen and pelvis to ensure she has not developed a diverticular abscess. Patient and her expressed understanding. 3. Irregularly irregular tachycardia on exam: Obtain EKG now. Blood pressure is stable. For 30 min was spent with this patient today. 09/23/17 12:01 Subjective: Patient is frustrated that she is so slow to improve. Still feels very tired. Complaining of some ongoing central abdominal pain. No nausea or vomiting. No diarrhea. Poor p.o. Intake. Feels that her heart is"racing." Objective: Ceftriaxone 1 g IV daily day 4 Metronidazole 500 mg IV q.8 hours day for Afebrile Vital Signs Temp Pulse Resp BP Pulse Ox 36.8 C 103 H 18 123/93 H 93 09/23/17 08:00 09/23/17 08:00 09/23/17 08:00 09/23/17 08:00 09/23/17 08:00 Laboratory Results 09/23/17 05:40 09/23/17 05:40 09/22/17 09/23/17 09/24/17 05:59 05:59 05:59 Intake Total 950 450 Output Total 1400 2650 Balance -450 -2200 Repeat blood cultures September 21 negative Blood cultures September 19 with E coli susceptible to ceftriaxone on the quinolones - Physical Exam General Appearance: no apparent distress, obese EENT: pharynx normal, No thrush Respiratory: lungs clear Cardiac/Chest: tachycardia, irregularly irregular Abdomen: other (Obese. Hypoactive bowel sounds. Very minimal tenderness to palpation bilateral lower quadrants with no rebound tenderness.) Skin: No rash ICD10 Worksheet Patient Problems: Problems Problem Status Onset Diverticulitis Acute
--- NOTE | 2017-09-23 12:37 | CPEKG ---
Heart Rate: 122 RR Interval: 492 P-R Interval: 83 QRSD Interval: 80 QT Interval: 332 QTC Interval: 473 P Alamo: 0 QRS Alamo: -7 T Wave Alamo: 31 EKG Severity - OTHERWISE NORMAL ECG - EKG Impression: AFLUTTER/AT WITH 2:1 CONDUCTION EKG Impression: MINIMAL ST DEPRESSION, LATERAL LEADS Electronically Signed By: Dwayne Eddy 24-Sep-2017 10:28:12
[2017-09-23] MEDS ORDERED: NS 500 ML IV ONE (14:01)
[2017-09-23] MEDS ORDERED: hydrALAZINE 10 MG TAB PO PRN (17:05)
[2017-09-24] MEDS: HEPARIN 5,000 UNIT/0.5 ML INJ SC SCH ×3 (06:24→21:48)
--- NOTE | 2017-09-24 08:12 | HOSPPROG ---
Hospitalist Progress Note Assessment/Plan: #E coli bacteremia: due to urinary source. Cont IV CTX. Day 5 of abx #Mild sigmoid diverticulitis: Flagyl, CTX. #Tachycardia: resolved with IVFs. Was dry on exam #SHAQUILLE: multifactorial with hypotension, UTI, NSAIDs. Cr 1.2 #Accelerated HTN: add low-dose Norvasc #Leukocytosis: resolved #Hyperkalemia: due to SHAQUILLE. Resolved #Metabolic acidosis: due to SHAQUILLE, stable #Deconditioning: PT/OT recs home care #Diet: regular #DVT ppx: SQH #Disp: cont inpatient admission for IV abx. If BP better-controlled, plan on DC tomorrow Subjective: feeling better today. No abd pain, eating. No MARTÍNEZ or CP Objective: Vital Signs Temp Pulse Resp BP Pulse Ox 36.9 C 86 14 118/77 94 09/24/17 07:20 09/24/17 07:20 09/24/17 07:20 09/24/17 07:20 09/24/17 07:20 Laboratory Results 09/23/17 05:40 09/24/17 06:20 09/23/17 09/24/17 09/25/17 05:59 05:59 05:59 Intake Total 450 750 Output Total 2650 1900 Balance -2200 -1150 - Time Spent With Patient Time Spent with Patient: greater than 35 minutes Time Spent with Patient: Greater than 35 minutes spent on this patients care, greater than 50% of time spent counseling, educating, and coordinating care regarding the above mentioned plan. - Physical Exam Constitutional: no apparent distress, other (appears brighter) Eyes: PERRL Ears, Nose, Mouth, Throat: moist mucous membranes, hearing normal Cardiovascular: regular rate and rhythym, no murmur, rub, or gallop Respiratory: no respiratory distress Gastrointestinal: normoactive bowel sounds, soft, non-tender abdomen, no palpable masses, No tenderness Genitourinary: no bladder fullness Skin: warm Musculoskeletal: full muscle strength Neurologic: AAOx3, CN II-XII Intact Psychiatric: interacting appropriately ICD10 Worksheet Patient Problems: Problems Problem Status Onset Diverticulitis Acute
[2017-09-24] MEDS: SERTRALINE HCL 50 MG TAB PO SCH (08:33)
[2017-09-24] MEDS: buPROPion SR 100 MG TAB PO SCH (08:33)
[2017-09-24] MEDS: EZETIMIBE 10 MG TAB PO SCH (08:33)
--- NOTE | 2017-09-24 15:34 | PCMIDPN ---
Assessment/Plan: Assessment/Plan: * Sepsis due to E coli bacteremia of urinary or diverticular source: Clinically with significant improvement with antibiotic therapy. Continue ceftriaxone and metronidazole. Will change metronidazole to oral. Consider completing treatment with oral fluoroquinolone and metronidazole although this is complicated by potential for QT prolongation with fluoroquinolone and sertraline with EKG yesterday showing QTC of 473. Anticipate 2 week total course of therapy. 09/24/17 15:31 09/24/17 15:33 Subjective: Patient feels better today and notes that she seems to have turned the corner. Tolerating oral intake. Objective: Vital Signs Temp Pulse Resp BP Pulse Ox 35.6 C L 72 20 158/109 H 95 09/24/17 07:20 09/24/17 07:20 09/24/17 07:20 09/24/17 11:21 09/24/17 07:20 Laboratory Results 09/23/17 05:40 09/24/17 06:20 09/23/17 09/24/17 09/25/17 05:59 05:59 05:59 Intake Total 450 750 Output Total 2650 1900 Balance -2200 -1150 Ceftriaxone # 5 Metronidazole # 5 - Physical Exam General Appearance: alert, no apparent distress EENT: No scleral icterus, No thrush Respiratory: lungs clear, No respiratory distress Cardiac/Chest: regular rate, rhythm Abdomen: non-tender, No distended - Line/s RUE PICC Lines: No drainage, No erythema - Time Spent With Patient Time Spent with Patient: greater than 25 minutes Time Spent with Patient: Greater than 25 minutes spent on this patients care, greater than 50% of time spent counseling, educating, and coordinating care regarding the above mentioned plan. ICD10 Worksheet Patient Problems: Problems Problem Status Onset Diverticulitis Acute
[2017-09-24] MEDS: LIDOCAINE 4%/MENTHOL 1% PATCH TD SCH (21:48)
[2017-09-24] MEDS: metroNIDAZOLE 500 MG TAB PO SCH (21:49)
[2017-09-25] MEDS: metroNIDAZOLE 500 MG TAB PO SCH ×3 (06:31→21:49)
[2017-09-25] MEDS: HEPARIN 5,000 UNIT/0.5 ML INJ SC SCH ×2 (06:31→15:23)
--- NOTE | 2017-09-25 08:41 | CPEKG ---
Heart Rate: 129 RR Interval: 465 QRSD Interval: 80 QT Interval: 240 QTC Interval: 352 QRS Basco: 1 T Wave Basco: 190 EKG Severity - ABNORMAL ECG - EKG Impression: ATRIAL FLUTTER WITH 2:1 AV BLOCK EKG Impression: PROBABLE LVH WITH SECONDARY REPOL ABNRM Electronically Signed By: Dwayne Eddy 25-Sep-2017 15:04:39
[2017-09-25] MEDS ORDERED: DILTIAZEM 25 MG/5 ML VIAL IVP SCH (09:00)
[2017-09-25] MEDS ORDERED: DILTIAZEM 125 MG/25 ML VIAL IV ONE (09:00)
[2017-09-25] MEDS ORDERED: DILTIAZEM 25 MG/5 ML VIAL IVP ONE (09:00)
[2017-09-25] MEDS: EZETIMIBE 10 MG TAB PO SCH (09:32)
[2017-09-25] MEDS: buPROPion SR 100 MG TAB PO SCH (09:34)
[2017-09-25] MEDS: SERTRALINE HCL 50 MG TAB PO SCH (09:34)
[2017-09-25] MEDS: LIDOCAINE 4%/MENTHOL 1% PATCH TD SCH (09:43)
[2017-09-25] MEDS: ATENOLOL 25 MG TAB PO SCH ×2 (10:26→20:44)
[2017-09-25] MEDS ORDERED: NS 1,000 ML IV ONE (10:30)
[2017-09-25] MEDS ORDERED: PROTOCOL POTASSIUM 1 DOSE MISC PRN (15:56)
--- NOTE | 2017-09-25 16:14 | ASMTCMCOM ---
CM Note CM Note Notes: CM spoke w/ Dr. Sherman regarding d/c POC. Blood cultures are pending. Pt may need ivabx at time of d/c. Referral sent to elvie. Mendy from [facility] will speak to pt directly tomorrow AM to discuss benefits. CM to follow. Plan: [facility]; OT, PT, RN Date Signed: 09/25/2017 04:13 PM Electronically Signed By:GUSTAVO Carrillo
--- NOTE | 2017-09-25 16:22 | HOSPPROG ---
Hospitalist Progress Note Assessment/Plan: # Acute Atrial flutter with RVR- STAT team called for palpitations and HR in 140 's this am EKG (personally reviewed and interpreted) atrial flutter with 2:1 block oxygen saturations 95% on RA - diltiazem 10mg x1 with good HR response - will start Eliquis 5mg BID - Dr. Barros from Cardiology to consult - Echo complete ordered - continue Atenolol 25mg HS (extra 25mg dose given this am) - continue telemetry #E coli bacteremia: due to urinary source. Cont IV CTX. Day 6 of abx #Mild sigmoid diverticulitis: Flagyl, CTX. #SHAQUILLE: multifactorial with hypotension, UTI, NSAIDs. Cr 1.1 #Accelerated HTN: stop Norvasc - restart home Atenolol #Leukocytosis: resolved #Hyperkalemia: due to SHAQUILLE. Resolved #Metabolic acidosis: due to SHAQUILLE, stable #Deconditioning: PT/OT recs home care #Diet: regular #DVT ppx: SQH #Disp: cont inpatient admission for cardiac monitoring I have discussed the case with Dr. Barros Subjective: nervous about returning home Objective: Vital Signs Temp Pulse Resp BP Pulse Ox 36.6 C 98 20 116/84 H 95 09/25/17 14:51 09/25/17 14:51 09/25/17 14:51 09/25/17 14:51 09/25/17 14:51 Laboratory Results 09/23/17 05:40 09/25/17 06:25 09/24/17 09/25/17 09/26/17 05:59 05:59 05:59 Intake Total 750 775 Output Total 1900 1850 1400 Balance -1150 -1075 -1400 - Physical Exam Constitutional: appears nourished Eyes: anicteric sclera Ears, Nose, Mouth, Throat: moist mucous membranes Cardiovascular: irregularly irregular, tachycardia Respiratory: no respiratory distress Gastrointestinal: normoactive bowel sounds Genitourinary: no bladder fullness Skin: warm Musculoskeletal: No asymmetric calves Neurologic: AAOx3 Psychiatric: interacting appropriately Lymph, Heme, Immunologic: no cervical LAD ICD10 Worksheet Patient Problems: Problems Problem Status Onset Diverticulitis Acute
--- NOTE | 2017-09-25 17:04 | ECHO ---
[email or web address] [address] Main: [phone] Fax: Transthoracic Echocardiogram Name: ROBERT COOK MR#: [id number] Study Date: 09/25/2017 Study Time: 03:49 PM Date of : 1940 Age: 77 year(s) Height: 167.6 cm (66 in.) Weight: 79.83 kg (176 lb.) BSA: 1.89 m2 Gender: Female Examination: Echo Indication: Atrial Fibrillation Image Quality: Contrast: Requested by: Salina Rueda BP: 116 mmHg/84 mmHg Heart Rate: Rhythm: Indication: Atrial Fibrillation Procedure Staff Child Development Professor: eNly Linton [facility] Reading Physician: Alyssa Barros MD Requesting Provider: Conclusions: Normal size left ventricle. No LV hypertrophy. Normal global systolic LV function. The ejection fraction is estimated to be 60-65 %. No regional wall motion abnormality. Normal size right ventricle. Normal RV function. The left atrium is mildly dilated. Moderate mitral valve regurgitation is present. The pulmonary artery pressure is normal. There is no previous echocardiogram for comparison. Measurements: Chambers Valvular Assessment AV/MV Valvular Assessment TV/PV Normal Normal Normal Name Value Range Name Value Range Name Value Range Ao Karen (2D): 1.9 cm (1.4 cm-2.6 AV meanP mmHg ( - ) TR Vmax: 2.13 mm/s ( - ) cm) MV E Vmax: 0.83 m/s ( - ) TR PGmax: 18 mmHg ( - ) IVSd (2D): 1.0 cm (0.6 cm-1.1 MV A Vmax: 0.36 m/s ( - ) syst. PAP: 23 mmHg ( - ) cm) MV E/A: 2.31 ( - ) LVDd (2D): 4.3 cm (3.9 cm-5.3 MV meanP mmHg ( - ) cm) LVDs (2D): 3.1 cm (2.1 cm-4 cm) LVPWd (2D): 0.8 cm ( - ) LVEF (MOD4): 65 % (>=55 %) EF Range: 60-65 % Continued Measurements: Chambers Valvular Assessment AV/MV Valvular Assessment TV/PV Patient: ROBERT COOK Study Date: 09/25/2017 Page 1 of 2 03:49 PM Name Value Name Value Name Value LADs: 3.8 cm MV Annulus: 3.0 cm CVP (est.): 5 mmHg LADs Lon.7 cm MV E' Septal: 0.07 m/s LA Area: 19.0 cm2 MV E/E' Septal: 11.70 MV E/E' Lateral: 9.40 MV VTI: 16.30 cm MR ERO: 0.240 cm2 MR PISA radius: 8 mm MR Reg. Volume: 36 ml MR Reg. Fraction: 31 % Additional Vessels Name Value Ao Ascendin.0 cm Findings: Left Ventricle: Normal size left ventricle. No LV hypertrophy. Normal global systolic LV function. The ejection fraction is estimated to be 60-65 %. No regional wall motion abnormality. Right Ventricle: Normal size right ventricle. Normal RV function. Left Atrium: The left atrium is mildly dilated. Right Atrium: The right atrium is normal in size. Mitral Valve: Moderate mitral valve regurgitation is present. Aortic Valve: The aortic valve is normal in appearance and function. The aortic valve is tri-leaflet. Trivial aortic valve regurgitation. Tricuspid Valve: The tricuspid valve is normal in appearance and function. The pulmonary artery pressure is normal. Pulmonic Valve: The pulmonic valve is normal in appearance and function. Trivial pulmonic valve regurgitation. Aorta: The aorta is normal. Pericardium: No pericardial effusion. (No Signature Object) Patient: ROBERT COOK Study Date: 09/25/2017 Page 2 of 2 03:49 PM [id number]
[2017-09-25] MEDS: GEMFIBROZIL 600 MG TAB PO SCH (17:39)
--- NOTE | 2017-09-25 18:54 | PCMIDPN ---
Assessment/Plan: Assessment/Plan: * Sepsis due to E coli bacteremia of urinary or diverticular source: Continued clinical improvement with ceftriaxone and metronidazole. Given A flutter think best course of action will be to complete antibiotic therapy with ceftriaxone and metronidazole rather than use fluoroquinolone with potential for QT prolongation. Plan 2 weeks of antibiotic therapy (day # 6/). Subjective: Patient with decreased abdominal pain. Still with poor appetite. Tachycardia this a.m. Secondary to atrial flutter. Objective: Vital Signs Temp Pulse Resp BP Pulse Ox 36.6 C 98 20 116/84 H 95 09/25/17 14:51 09/25/17 14:51 09/25/17 14:51 09/25/17 14:51 09/25/17 14:51 Laboratory Results 09/23/17 05:40 09/25/17 17:50 09/24/17 09/25/17 09/26/17 05:59 05:59 05:59 Intake Total 750 775 360 Output Total 1900 1850 1700 Balance -1150 -1075 -1340 Ceftriaxone # 6 Metronidazole # 6 - Physical Exam General Appearance: alert, no apparent distress EENT: No scleral icterus, No thrush, No conjunctival petechiae Respiratory: lungs clear, No respiratory distress Cardiac/Chest: tachycardia, irregularly irregular Abdomen: non-tender, No distended - Line/s RUE PICC Lines: No drainage, No erythema ICD10 Worksheet Patient Problems: Problems Problem Status Onset Diverticulitis Acute
--- NOTE | 2017-09-25 19:12 | GCON ---
[f rep st] CONSULTATION CARDIOLOGY CONSULT. DATE OF CONSULTATION: 09/25/2017 PRIMARY SUPERVISOR SANDING: Dr. Zak Gaspar. CHIEF COMPLAINT: Atrial arrhythmia. HISTORY OF PRESENT ILLNESS: We were asked by Dr. Rueda to visit with the patient. The patient is a pleasant 77-year-old female with a history of positive calcium score, dyslipidemia, intolerant to s tatin therapy, hypertension. She reports a long history of "irregular heartbeat," for which she has taken atenolol for many years. However, she has never been diagnosed formally with atrial flutter or atrial fibrillation. She was admitted on September 19 with E coli bacteremia and sepsis physiology. Source is thought to be eit her urinary or related to diverticulitis. In this setting, she was in acute renal failure. She has been treated aggressively with fluid resuscitation and antibiotics and seen by Infectious Disease, as well as Hospital Medicine. Two days ago, she was noticed to be tachycardic, and an EKG showed atrial flutter with rapid ventricu lar response. She was given a bolus of IV diltiazem and has been transitioned back to her oral ateno lol. We are asked to consult for further management of her atrial arrhythmia. The patient has not had any chest pain suggestive of angina. For the past month or so, she has noted exertional dyspnea, for example when climbing stairs. She denies lower extremity edema, paroxysmal nocturnal dyspnea or orthopnea. She has never had a major bleeding problem. Her last fall was remot davey. REVIEW OF SYSTEMS: A full 10-point review of systems is performed and is negative, except that which is outlined in the History of Present Illness. ALLERGIES: Sulfa. PAST MEDICAL HISTORY: 1. Coronary disease on the basis of a positive calcium score. Last assessment of coronary circulati on was a normal nuclear stress test in 2008. 2. Dyslipidemia, intolerant of statins, currently treated with Zetia. 3. Hypertension. 4. Newly diagnosed moderate mitral regurgitation. 5. Newly diagnosed atrial fibrillation and atrial flutter. 6. Osteoarthritis. 7. History of hysterectomy. 8. Status post back surgery. 9. Status post knee surgery. 10. Depression. OUTPATIENT MEDICATIONS: Zetia 10 mg daily, atenolol 25 mg, Wellbutrin, Voltaren gel, Lopid 600 mg b. i.d., nitrofurantoin, which was originally started outpatient for UTI, and Zoloft. SOCIAL HISTORY: The patient is , and her is at the bedside. She does not smoke cigar ettes. She denies alcohol use. FAMILY HISTORY: Not applicable to the current case. PHYSICAL EXAM: VITAL SIGNS: Blood pressure 116/84. Heart rate has been 90s to 130s. Oxygen satura tion 95% on room air. Respiratory rate is 20. She is afebrile. GENERAL: Well-appearing older fema le in no acute distress. HEENT: Sclerae clear and free of jaundice. Mucous membranes are moist. C ARDIOVASCULAR: JVP is approximately 12 cm of water. Irregular regular rhythm, with soft early systo lic murmur at the apex. No S3. No rub. LUNGS: Clear to auscultation bilaterally, without wheezes, rhonchi, or rales. ABDOMEN: Soft, obese, nontender, nondistended. No hepatosplenomegaly. EXTREMI TIES: Warm and well perfused, without cyanosis, clubbing, or edema. NEURO: Alert and oriented x3, without gross focal neurologic deficits. Appropriate mood and affect. LABORATORY DATA: White count 8.5, down from 25.5 on admission. Hematocrit 32. Platelets are 101. S odium 146, potassium 3.2, chloride 114, bicarb 23, BUN 29, creatinine 1.1. Her peak creatinine this admission was 2.2. Magnesium 1.7. TSH is pending. LFTs normal, other than an albumin of 2. Urinal ysis shows 2+ protein, 2+ blood, positive nitrate, 3+ leuk esterase, and 50-182 white cells. Blood cultures grew E coli, as did urine culture. Two EKGs reviewed by me dated September 23 and September 25 both show atrial flutter, the first with rapid ventri cular response, the second with controlled ventricular response. QT interval normal. Preliminary echo reviewed: Normal LV systolic function with normal wall motion. Moderate mitral reg urgitation. Mild tricuspid regurgitation with normal estimated pulmonary pressure. ASSESSMENT AND PLAN: A 77-year-old female admitted with E coli bacteremia from either urinary or div erticular source. Course was complicated by acute renal failure and paroxysmal atrial flutter. On t elemetry now, it appears that she is in atrial fibrillation. This is minimally symptomatic, but she is not in heart failure, nor having evidence of cardiac ischemia. 1. Atrial fibrillation and atrial flutter: Agree with restarting atenolol. It is likely that her a trial arrhythmias were triggered by sepsis and also being off her atenolol in the setting of slightly low blood pressures. She may require increased doses or alternative fransisca blocking agents to contro l her ventricular rate. Discussed with Dr. Rueda, and we will discontinue her prophylactic dose he bruce and start Eliquis 5 mg b.i.d. now that her renal function has improved. The risks, benefits, a nd alternatives of systemic anticoagulation were reviewed with the patient and her . Her FABIEN S2-VASc score is at least 5, therefore, intensified anticoagulation is warranted to reduce the risk o f thromboembolic stroke. At this point, I would not perform YIFAN-guided cardioversion as she is in th e subacute phase of her infectious illness. Could consider this outpatient, unless she becomes unsta ble from a cardiac standpoint. 2. Escherichia coli bacteremia: Per Infectious Disease and Internal Medicine. 3. Mitral regurgitation: This was recently diagnosed on echocardiogram. She has been having some d yspnea as an outpatient. It is moderate based on echo parameters, but we will need to follow this cl osely, especially after sinus rhythm has been restored. At this point, I do not think she requires d iuretic therapy, especially in the setting of her recent hypovolemic renal failure. 4. Hypertension: Currently well controlled. Atenolol has been restarted. Thank you for allowing us to participate in the patient's care. We will follow with you. /[id number]/MODL
[2017-09-25] MEDS ORDERED: POTASSIUM CL 10 MEQ TAB PO ONE (20:33)
[2017-09-25] MEDS: APIXABAN 5 MG TAB PO SCH (20:44)
[2017-09-25] MEDS: PATCH REMOVAL 1 EA PATCH TD SCH (21:49)
[2017-09-26] MEDS: metroNIDAZOLE 500 MG TAB PO SCH ×3 (04:57→20:54)
[2017-09-26 05:16] LABS: PLATELET COUNT 153 10^3/uL (150-400)
[2017-09-26] MEDS ORDERED: POTASSIUM CL 10 MEQ TAB PO ONE (07:33)
[2017-09-26] MEDS: EZETIMIBE 10 MG TAB PO SCH (08:11)
[2017-09-26] MEDS: SERTRALINE HCL 50 MG TAB PO SCH (08:12)
[2017-09-26] MEDS: GEMFIBROZIL 600 MG TAB PO SCH ×2 (08:12→17:22)
[2017-09-26] MEDS: APIXABAN 5 MG TAB PO SCH ×2 (08:12→20:54)
[2017-09-26] MEDS: buPROPion SR 100 MG TAB PO SCH (08:13)
[2017-09-26] MEDS: LIDOCAINE 4%/MENTHOL 1% PATCH TD SCH (10:15)
[2017-09-26] MEDS: METOPROLOL TARTRATE 25 MG TAB PO SCH ×2 (11:31→20:54)
--- NOTE | 2017-09-26 14:46 | ASMTCMCOM ---
CM Note CM Note Notes: CM spoke w/ YESENIA Torre regarding d/c POC. Pt had some tachycardia yesterday AM. Mendy from [employer] met w/ pt to go over benefits. Pt will use [facility] for outpatient infusion medications. CM to follow. Plan: [facility], PT, OT, RN w/ Jr Date Signed: 09/26/2017 02:45 PM Electronically Signed By:GUSTAVO Carrillo
--- NOTE | 2017-09-26 15:03 | HOSPPROG ---
Hospitalist Progress Note Assessment/Plan: # Acute Atrial flutter with RVR- STAT team called yest palpitations and HR in 140's this am- given diltiazem push and atenolol with improved rates TELE (personally reviewed and interpreted) atrial fibrillation 90-100's - ECHO normal oxygen saturations 95% on RA - dc atenolol - cont new Eliquis 5mg BID - start metoprolol 25mg BID - continue telemetry #E coli bacteremia: due to urinary source. Cont IV CTX. Day 7 of abx #Mild sigmoid diverticulitis: Flagyl, CTX. #SHAQUILLE: multifactorial with hypotension, UTI, NSAIDs. Cr 1.1 #Accelerated HTN: stop Norvasc - restart home Atenolol #Leukocytosis: resolved #Hyperkalemia: due to SHAQUILLE. Resolved #Metabolic acidosis: due to SHAQUILLE, stable #Deconditioning: PT/OT recs home care #Diet: regular #DVT ppx: SQH #Disp: cont inpatient admission for cardiac monitoring I have discussed the case with RN and PT - pt very weak today - monitor overnight on new metoprolol - anticipate dc tomorrow Subjective: weak and nervous Objective: Vital Signs Temp Pulse Resp BP Pulse Ox 36.6 C 96 16 126/91 H 96 09/26/17 11:01 09/26/17 11:01 09/26/17 11:01 09/26/17 11:01 09/26/17 11:01 Microbiology 09/21/17 11:50 Blood Culture - Final Blood - Picc Line Laboratory Results 09/26/17 04:55 09/26/17 04:55 09/25/17 09/26/17 09/27/17 05:59 05:59 05:59 Intake Total 775 860 Output Total 1850 3500 Balance -1077 -4980 - Physical Exam Constitutional: no apparent distress Eyes: anicteric sclera Ears, Nose, Mouth, Throat: moist mucous membranes Cardiovascular: irregularly irregular, No tachycardia Respiratory: no respiratory distress Gastrointestinal: normoactive bowel sounds Genitourinary: no bladder fullness Skin: warm Musculoskeletal: No asymmetric calves Neurologic: AAOx3 Psychiatric: interacting appropriately Lymph, Heme, Immunologic: no cervical LAD ICD10 Worksheet Patient Problems: Problems Problem Status Onset Diverticulitis Acute
--- NOTE | 2017-09-26 16:28 | PDCARPN ---
Cardiology Progress Note Assessment/Plan: Assessment/plan: 77-year-old female with a history of positive calcium score, dyslipidemia intolerant of statins, hypertension. She is admitted last week with E coli bacteremia from either urinary or diverticular source. She has responded well to IV fluids and antibiotic therapy. Course was complicated by atrial flutter and now atrial fibrillation as well as acute renal failure which has improved. 1. Atrial arrhythmia: Fairly well rate controlled on metoprolol 25 twice daily. Eliquis has been started for CHADS2 Vasc score of 5. Bleeding risks were reviewed. Would not pursue Trey Batoolmatt Seals version until she has completed her antibiotic therapy and is more stable from an infectious disease standpoint. This can be scheduled as an outpatient. 2. Sepsis: Per Hospital Medicine and Infectious Disease. On appropriate antibiotic therapy. Agree with withholding fluoroquinolones due to potential for QT prolongation, especially the setting of Zoloft use. 3. Acute renal failure. This has improved with a creatinine today of 1.1. 4. Hypertension: Overall fairly well controlled. 5. Valvular heart disease with moderate mitral regurgitation: This needs to be followed in the outpatient setting. Currently not in heart failure. 6. Coronary disease based on positive calcium score: No angina. Continue medical management with beta-blockers. She is now on Eliquis. She is on Zetia. 7. Elevated TSH: Outpatient follow-up. Will sign off. Please have the patient follow up with her primary aquaculture worker , Dr. Zak Gaspar 09/26/17 16:29 Subjective: She feels better today. Mild dyspnea with exertion is improved. No angina. She does not have an appetite and overall feels weak but improving. Reviewed/Discussed With: family, hospitalist Objective: Vital Signs (8 Hrs) Temp Pulse Resp BP Pulse Ox 09/26/17 11:01 36.6 C 96 16 126/91 H 96 Intake/Output (24 Hrs) 09/25/17 09/26/17 09/27/17 05:59 05:59 05:59 Intake Total 775 860 Output Total 1850 3500 Balance -6923 -8955 Intake: Oral (ml) 660 860 IV Intake (ml) 15 IV Infused (ml) 100 metroNIDAZOLE 500 MG/NACL 100 100 ml @ 100 mls/hr IV Q8HRS [facility] Rx#:[id number] Output: Urine (ml) 1850 3500 Toilet 1850 3500 Other: Weight 80.1 kg 80 kg 78.5 kg Intake Quantity Yes Sufficient Number of Voids Toilet 1 Number of Stools Toilet 0 1 No acute distress. JVP less than 12. Irregularly irregular rhythm no obvious murmur, S3 or rub Lungs clear to auscultation without wheeze rhonchi or rales No lower extremity edema Result Diagrams: 09/26/17 04:55 09/26/17 04:55 Telemetry: Atrial fibrillation with mostly controlled ventricular response ICD10 Worksheet Patient Problems: Problems Problem Status Onset Diverticulitis Acute
--- NOTE | 2017-09-26 17:17 | PCMIDPN ---
Assessment/Plan: Assessment/Plan: * Sepsis due to E coli bacteremia of urinary or diverticular source: Patient with resolution of abdominal pain and urinary symptoms are not present. Tolerating ceftriaxone and oral metronidazole well although unclear if antibiotic therapy having negative impact on appetite. Patient has now completed 7 of 14 days of antibiotic therapy. Discharge planning underway with plans for completion of antibiotics at home. Side effects of ceftriaxone and metronidazole reviewed with patient today. Will arrange for follow-up in our office next week for ongoing assessment. Plan to follow white blood cell count over time. 09/26/17 17:15 09/26/17 17:16 Subjective: Patient with recurrent tachycardia this a.m. Associated with atrial fibrillation. Patient notes that abdominal pain fully resolved. Appetite is poor. Objective: Vital Signs Temp Pulse Resp BP Pulse Ox 36.4 C 79 16 131/80 H 96 09/26/17 16:00 09/26/17 16:00 09/26/17 16:00 09/26/17 16:00 09/26/17 16:00 Microbiology 09/21/17 11:50 Blood Culture - Final Blood - Picc Line Laboratory Results 09/26/17 04:55 09/26/17 04:55 09/25/17 09/26/17 09/27/17 05:59 05:59 05:59 Intake Total 775 860 Output Total 1850 3500 Balance -1075 -2640 Ceftriaxone # 7 Metronidazole # 7 - Physical Exam General Appearance: alert, no apparent distress EENT: No scleral icterus, No thrush Respiratory: lungs clear, No respiratory distress Cardiac/Chest: irregularly irregular Abdomen: non-tender, No distended - Line/s RUE PICC Lines: No drainage, No erythema - Time Spent With Patient Time Spent with Patient: greater than 25 minutes Time Spent with Patient: Greater than 25 minutes spent on this patients care, greater than 50% of time spent counseling, educating, and coordinating care regarding the above mentioned plan. ICD10 Worksheet Patient Problems: Problems Problem Status Onset Diverticulitis Acute
--- NOTE | 2017-09-26 17:18 | PDIAF ---
- Diagnosis Diagnosis: E coli bacteremia, diverticulitis Code Status: Full Code - Medication Management Discharge Medications: Medications to Continue on Transfer Atenolol [Tenormin 25 mg (*)] 25 mg PO HS 09/19/17 [Last Taken 09/18/17] Diclofenac Sodium 1% [Voltaren Gel (*)] 1 ilene TP TID PRN 09/19/17 [Last Taken Unknown] Ezetimibe [Zetia 10 MG (*)] 10 mg PO DAILY 09/19/17 [Last Taken 09/18/17] Gemfibrozil [Lopid 600 MG (*)] 600 mg PO BIDAC 09/19/17 [Last Taken 09/18/17] Nitrofurantoin Macrocrystal [Nitrofurantoin] 100 mg PO BID 09/19/17 [Last Taken 09/18/17] Sertraline HCl [Zoloft 50mg (*)] 50 mg PO DAILY 09/19/17 [Last Taken 09/18/17] buPROPion SR [Wellbutrin 100mg SR (*)] 100 mg PO DAILY 09/19/17 [Last Taken ] Shelter Antibiotics: Ceftriaxone 1 g IV daily, metronidazole 500 mg orally 3 times per day Shelter Antibiotic Stop Date: 10/03/17 Discharge Medications: Refer to the Discharge Home Medication list for PRN reason. PICC Care - Routine: Yes - Orders Services needed: Home Intermediate Care Face to Face: I certify that this patient was under my care and that I had the required [id number] encounter meeting the encounter requirements on the discharge day. My findings support the fact that the patient is homebound as defined in Home Care Face to Face Continued: CMS Chapter 7 Medicare Benefits Manual 30.1.1 , The condition of the patient is such that there exists a normal inability to leave home and consequently, leaving home would require a considerable and taxing effort. - Labs/Radiology CBC w/diff Date: 10/01/17 CMP Date: 10/01/17 Call or Fax Lab and Imaging Results to: Dr. Sherman, - Follow Up Care Current Providers and Referrals: MOMO LANDAVERDE [Primary Care Provider] - As per Instructions Zak Gaspar MD [Medical Doctor] - (2-3 weeks)
[2017-09-26] MEDS: PATCH REMOVAL 1 EA PATCH TD SCH (20:27)
[2017-09-26] MEDS ORDERED: LIDOCAINE 4%/MENTHOL 1% PATCH TD SCH (21:23)
[2017-09-27] MEDS: metroNIDAZOLE 500 MG TAB PO SCH (05:02)
[2017-09-27 07:18] VITALS: BP 148/85
[2017-09-27] MEDS: GEMFIBROZIL 600 MG TAB PO SCH (08:07)
[2017-09-27] MEDS: EZETIMIBE 10 MG TAB PO SCH (08:07)
[2017-09-27] MEDS: SERTRALINE HCL 50 MG TAB PO SCH (08:07)
[2017-09-27] MEDS: buPROPion SR 100 MG TAB PO SCH (08:07)
[2017-09-27] MEDS: METOPROLOL TARTRATE 25 MG TAB PO SCH (08:08)
[2017-09-27] MEDS: APIXABAN 5 MG TAB PO SCH (08:08)
[2017-09-27] MEDS ORDERED: PATCH REMOVAL 1 EA PATCH TD SCH (09:00)
--- NOTE | 2017-09-27 09:15 | PDIAF ---
- Diagnosis Diagnosis: E coli bacteremia, diverticulitis Code Status: Full Code - Medication Management Discharge Medications: Medications to Continue on Transfer Diclofenac Sodium 1% [Voltaren Gel (*)] 1 ilene TP TID PRN 09/19/17 [Last Taken Unknown] Ezetimibe [Zetia 10 MG (*)] 10 mg PO DAILY 09/19/17 [Last Taken 09/18/17] Gemfibrozil [Lopid 600 MG (*)] 600 mg PO BIDAC 09/19/17 [Last Taken 09/18/17] Sertraline HCl [Zoloft 50mg (*)] 50 mg PO DAILY 09/19/17 [Last Taken 09/18/17] buPROPion SR [Wellbutrin 100mg SR (*)] 100 mg PO DAILY 09/19/17 [Last Taken ] Apixaban [Eliquis] 5 mg PO BID #60 tab 09/27/17 [Last Taken Unknown] Metoprolol Tartrate [Lopressor 25 mg (*)] 25 mg PO BID #60 tab 09/27/17 [Last Taken Unknown] cefTRIAXone 1 GM/DEXTROSE [Rocephin 1 gm (Premix)] 1 gm IV DAILY bag 09/27/17 [ Last Taken Unknown] metroNIDAZOLE [Flagyl 500 mg (*)] 500 mg PO Q8HRS #21 tab 09/27/17 [Last Taken Unknown] Tool Mechanic Antibiotics: Ceftriaxone 1 g IV daily, metronidazole 500 mg orally 3 times per day Senior Living Antibiotic Stop Date: 10/03/17 Discharge Medications: Refer to the Discharge Home Medication list for PRN reason. PICC Care - Routine: Yes - Orders Services needed: Home Care, Registered Nurse, Physical Therapy, Occupational Therapy Home Care Face to Face: I certify that this patient was under my care and that I had the required [id number] encounter meeting the encounter requirements on the discharge day. My findings support the fact that the patient is homebound as defined in Home Care Face to Face Continued: CMS Chapter 7 Medicare Benefits Manual 30.1.1 , The condition of the patient is such that there exists a normal inability to leave home and consequently, leaving home would require a considerable and taxing effort. Diet Recommendation: no restrictions on diet Diet Texture: Regular Texture Diet - Labs/Radiology CBC w/diff Date: 10/01/17 CMP Date: 10/01/17 Call or Fax Lab and Imaging Results to: Dr. Sherman, - Follow Up Care Current Providers and Referrals: MOMO LANDAVERDE [Primary Care Provider] - As per Instructions Zak Gaspar MD [Medical Doctor] - (2-3 weeks)
--- NOTE | 2017-09-27 09:30 | ASMTLACE ---
LISSETTEE Length of stay for Answers: 7-13 days current admission Acuity / Level of Answers: Yes Care: Did the patient have an inpatient admission? # of Emergency department Answers: 1-2 visits in the last 6 months Social determinants Answers: Mental health diagnosis (anxiety, depression, pers onality disorders, etc.) Score: 12 Date Signed: 09/27/2017 09:30 AM Electronically Signed By:GUSTAVO Carrillo
[2017-09-27] MEDS ORDERED: POTASSIUM CL 10 MEQ TAB PO ONE (10:31)
--- NOTE | 2017-09-27 12:33 | ASDISCHSUM ---
Discharge Information Plan Status:Home with Home Health Medically Cleared to Leave:09/27/2017 Discharge Date:09/27/2017 11:40 AM D/C Disposition: ADT D/C Disposition:Home, Routine, Self-Care Projected Discharge Date:09/27/2017 11:00 AM Transportation at D/C: Discharge Delay Reason: Follow-Up Date:09/27/2017 11:00 AM Discharge Slot: Final Diagnosis: Placement Information Referral Type:*Home Health Care Services Referral ID:[id number] Provider Name:[facility] [address] [place] [address] Address 2: City:[place] Selection Factors: State:[place] Referral Type:Home Infusion Referral ID:[id number] Provider Name:[facility] Address 1:[address] [place] [address] Address 2: City:[place] Selection Factors: State:[place] Patient Contact Information Contact Name:INDU Relationship: Address:[address] City:[place] Alternate Phone: [facility]/Zip Code:[place] [address] Email: Financial Information Financial Class:Medicare Primary Plan Desc:MEDICARE INPATIENT Primary Plan Number:[id number] Secondary Plan Desc:GREG GOODEN O Secondary Plan Number:[id number] Assessment Information LACE LACE Length of stay for Answers: 7-13 days current admission Acuity / Level of Answers: Yes Care: Did the patient have an inpatient admission? # of Emergency department Answers: 1-2 visits in the last 6 months Social determinants Answers: Mental health diagnosis (anxiety, depression, pers onality disorders, etc.) Score: 12 Date Signed: 09/27/2017 09:30 AM Electronically Signed By:Clarice Nellie, LABORER [employer] [facility] Initial CM Assessment Living Arrangements What is your living Answers: With Spouse arrangement? Who do you live with? Type Of Residence What kind of residence do Answers: House you live in? Discharge Plan Comments Coordination Status Comments Notes: Pt is a 77 y/o female admitted for diverticulitis. Needs are TBD at this time. Therapies have been ordered and pending. CM to follow. Plan: TBD Date Signed: 09/20/2017 10:16 AM Electronically Signed By:GUSTAVO Carrillo [facility] CM Progress Note CM Note CM Note Notes: Spoke w/RN, does not think that pt will need homecare but PT did recommend. CM was unable to meet with pt to discuss. If does not want hc, pt will dc home w/support of when medically stable. CM available for any changes. DC Plan: HC vs Independent Date Signed: 09/22/2017 03:44 PM Electronically Signed By:Gia Casey RN [facility] CM Progress Note CM Note CM Note Notes: CM met w/ pt for dispo planning. OT has cleared pt to d/c without any needs. PT is recommending HC. Pt is agreeable to having HC. Pt reports feeling unsteady at times when she walks. Pt reports that she uses a walker to ambulate. Pt would like to use [facility]. [facility] is able to accept. CM confirmed pts address and phone number. CM informed pt that she would need to be home bound due to medicare requirements. Pt is agreeable to this plan. CM to follow. Plan: [facility]; PT Date Signed: 09/23/2017 09:19 AM Electronically Signed By:GUSTAVO Carrillo [facility] Progress Note CM Note CM Note Notes: CM spoke w/ Dr. Sherman regarding d/c POC. Blood cultures are pending. Pt may need ivabx at time of d/c. Referral sent to [facility]. Mendy from [facility] will speak to pt directly tomorrow AM to discuss benefits. CM to follow. Plan: [facility]; OT, PT, RN Date Signed: 09/25/2017 04:13 PM Electronically Signed By:GUSTAVO Carrillo [facility] Progress Note CM Note CM Note Notes: CM spoke w/ Yelitza RN regarding d/c POC. Pt had some tachycardia yesterday AM. Mendy from [facility] met w/ pt to go over benefits. Pt will use [facility] for outpatient infusion medications. CM to follow. Plan: [facility], PT, OT, RN w/ [facility] Date Signed: 09/26/2017 02:45 PM Electronically Signed By:GUSTAVO Carrillo Case Management Discharge Plan Note Case Management Discharge Discharge Order Complete? Answers: Yes Patient to Obtain Answers: via Family Medications Transportation Arranged Answers: Family/Friends EMTALA Complete Answers: No Case Management Transport Answers: No Form Complete Faxed Final Orders Answers: Yes Agency/Facility Transfer Answers: Yes Report Printed & Faxed to Receiving Agency Family Notified Answers: No Discharge Comments Notes: CM spoke w/ Keila Lea RN and Dr. Sherman regarding d/c POC. Pt is being discharged today. CM notified [facility] and [facility] of the d/c. CM sent d/c orders. CM provided YESENIA Pedraza w/ phone number to give report. CM available for changes. Plan: [facility]; PT, TIM, RN + [facility] Date Signed: 09/27/2017 09:24 AM Electronically Signed By:GUSTAVO Carrillo Intervention Information Intervention Type:*IM-Signed Date of Service:09/27/2017 09:46 AM Patient Type:Inpatient Staff Member:Becca Henning Hours: Discipline: Severity: Comment:
--- NOTE | 2017-09-27 15:32 | GDS ---
[f rep st] DISCHARGE SUMMARY CHIEF COMPLAINT: Abdominal pain. DISCHARGE DIAGNOSES: Includes: 1. Severe sepsis present on admission with leukocytosis and tachycardia. Source thought to be secon niru to bacteremia from diverticulitis. 2. Acute kidney injury, secondary to dehydration and acute tubular necrosis given patient's hypotens ion at the early part of her hospital stay. 3. Septic shock. Patient did have acute hypotension with sepsis physiology, responded well to intra venous fluid resuscitation. 4. Escherichia coli bacteremia. 5. Diverticulitis. 6. Acute atrial flutter with rapid ventricular response. 7. Acute urinary tract infection. 8. Accelerated hypertension. 9. Metabolic acidosis, secondary to sepsis. HISTORY OF PRESENT ILLNESS: A 77-year-old female who presents with complaints of abdominal pain, fou nd to be in septic shock. For details of patient's initial presentation, please see the history and physical dated 09/19/2017. CONSULTATIVE SERVICES: Include: 1. Nephrology. 2. Infectious Disease. PROCEDURES: On 09/19/2017, patient had a CT of the abdomen that showed acute sigmoid diverticulitis. On 09/20/2017, patient had a PICC line placed. On 09/25/2017, patient had a transthoracic echocardiogram that showed normal LV size and function. N o significant valvular abnormalities. HOSPITAL COURSE: 1. Acute severe sepsis with septic shock. Patient presented with leukocytosis, tachycardia, hypoten lucas, presumed source from diverticulitis and bacteremia. Patient was aggressively fluid resuscitate d, empirically treated with antibiotics, and had marked improvement in her hemodynamics. Patient is being discharged on completion of antibiotic therapy for E coli bacteremia and diverticulitis. 2. Acute kidney injury. Patient presented with hypotension and the outpatient use of NSAIDs. Presu med to have some component of ATN. She did respond well to fluid resuscitation. On the day of dispo sition, her creatinine is 1.1. She has resumed her outpatient medications without complication. 3. Atrial fibrillation/flutter with rapid ventricular response. Patient had 2 episodes of severe ta chycardia during her hospital stay, responsive to IV fluids, as well as beta blockers. Patient was s een by Cardiology. We did initiate the patient on Eliquis and discuss the potential for transesophag eal cardioversion in the future. Patient was treated for her hypertension with atenolol in the outpa tient setting. We did switch this to b.i.d. metoprolol for improved rate control. On the day of dis position, the patient's heart rates are in the 80s in atrial fibrillation. She is on Eliquis and miguel ángel l follow in the outpatient setting with Cardiology. 4. Hypertension. As above, we changed the patient's beta-oscar therapy from atenolol to metoprolo l. On the day of disposition, her systolic blood pressures are in the 130s to 140s at discharge. 5. Sigmoid diverticulitis with sepsis. The patient will complete a 14 day course of antibiotic comb ined therapy with ceftriaxone and metronidazole. 6. Acute UTI with E coli bacteremia. The patient will complete a 14 day course of ceftriaxone IV an d follow in the outpatient setting with Infectious Disease. 7. Hyperlipidemia. Patient was continued on gemfibrozil and Zetia after resolution of her acute kid kathia injury. MEDICATIONS AT TIME OF TRANSFER: Please reference the medication reconciliation printed on 8. FOLLOWUP APPOINTMENTS: Include: 1. [facility] for discussions related to elective cardioversion of her atrial fibrillation, and o ngoing management of her atrial dysrhythmia. 2. Infectious Disease after the completion of her IV antibiotics for E coli bacteremia. I spent greater than 30 minutes in the planning and coordination of this discharge. /[id number]/MODL
== END 2017-09-27 11:40 | disposition home health service (06) | DRG 871 ==
LOC: EEVIPCON 15:35 → F3E 18:34
PROVIDERS: ADMIT Internal Medicine; ATTEND Internal Medicine
PROC: 02HV33Z Insertion of Infusion Device into Superior Vena Cava, Percutaneous Approach (ICD-10-PCS; principal; 2017-09-20)
DX: A41.51 Sepsis due to Escherichia coli [E. coli] (principal); R65.21 Severe sepsis with septic shock; N17.0 Acute kidney failure with tubular necrosis; N39.0 Urinary tract infection, site not specified; K57.32 Diverticulitis of large intestine without perforation or abscess without bleeding; I48.92 Unspecified atrial flutter; E87.2 Acidosis; E86.0 Dehydration; E78.5 Hyperlipidemia, unspecified; I10 Essential (primary) hypertension; I34.0 Nonrheumatic mitral (valve) insufficiency
CPT/HCPCS: 96374; 97110-GP; 97116-GP; 97161-GP; 97165-GO; 97535-GO; C1751; G8978-GP-CI; G8978-GP-CJ; G8979-GP-CI; G8980-GP-CI; G8987-GO-CJ; G8988-GO-CI; J0696; J1170; J1644; J1956; Q9967

== ENCOUNTER → 2017-10-05 | Outpatient (CLI) | payer OTHER | LOC: BHFA 11:45 | PROVIDERS: ATTEND Internal Medicine Interventional Cardiology | DX: I25.10 Atherosclerotic heart disease of native coronary artery without angina pectoris (principal); I10 Essential (primary) hypertension; I48.91 Unspecified atrial fibrillation ==

== ENCOUNTER → 2017-10-20 | Outpatient (CLI) | payer OTHER ==
[~2017-10-20] MED LIST: GADOBUTROL 10 ML VIAL IVP ONE
== END ==
LOC: FIMAGING 10:31
PROVIDERS: ATTEND Internal Medicine Infectious Disease
DX: M48.07 Spinal stenosis, lumbosacral region (principal); M53.87 Other specified dorsopathies, lumbosacral region; M48.04 Spinal stenosis, thoracic region; M51.04 Intervertebral disc disorders with myelopathy, thoracic region
CPT/HCPCS: 72157; 72158; A9585

== ENCOUNTER 2017-12-22 10:16 | Emergency (ER) | payer OTHER ==
--- NOTE | 2017-12-22 10:40 | EDPHY ---
H & P Stated Complaint: bleeding from mouth is on eliquis Time Seen by Provider: 12/22/17 10:25 HPI/ROS: CHIEF COMPLAINT: Oral bleeding HISTORY OF PRESENT ILLNESS: The patient presents the ED after she developed oral bleeding while chewing gum earlier today. The patient is currently anticoagulated with Eliquis for atrial fibrillation. She denies any complaints of lightheadedness, oral pain, melena, palpitations or chest pain. REVIEW OF SYSTEMS: A comprehensive 10 point review of systems is otherwise negative aside from elements mentioned in the history of present illness. Source: Patient Exam Limitations: No limitations - Personal History Current Tetanus Diphtheria and Acellular Pertussis (TDAP): Yes Tetanus Vaccine Date: <10 YRS - Medical/Surgical History Hx Asthma: Yes Hx Chronic Respiratory Disease: No Hx Diabetes: No Hx Cardiac Disease: Yes Hx Renal Disease: No Hx Cirrhosis: No Hx Alcoholism: No Hx HIV/AIDS: No Hx Splenectomy or Spleen Trauma: No Other PMH: medical depression, extra heart beats. surgery tonsillectomy, left knee replacement, lumbar fusion, hysterectomy afib/diverticulitis - Social History Smoking Status: Never smoked - Physical Exam Exam: General Appearance: Alert, no distress Eyes: Pupils equal and round no pallor or injection ENT, Mouth: Small 3 mm superficial laceration noted to be buccal mucosa on left posterior cheek Respiratory: There are no retractions, lungs are clear to auscultation Cardiovascular: Regular rate and rhythm Skin: Warm and dry, no rashes Constitutional: Initial Vital Signs Temperature (C) 37.1 C 12/22/17 10:20 Heart Rate 104 H 12/22/17 10:20 Respiratory Rate 18 12/22/17 10:20 Blood Pressure 139/93 H 12/22/17 10:20 O2 Sat (%) 96 12/22/17 10:20 O2 Delivery Mode Room Air Allergies/Adverse Reactions: Sulfa (Sulfonamide Antibiotics) Allergy (Unknown, Verified 12/22/17 10:17) Home Medications: Medication Instructions Recorded Diclofenac Sodium 1% [Voltaren Gel 1 ilene TP TID PRN 09/19/17 (*)] Ezetimibe [Zetia 10 MG (*)] 10 mg PO DAILY 09/19/17 Gemfibrozil [Lopid 600 MG (*)] 600 mg PO BIDAC 09/19/17 Sertraline HCl [Zoloft 50mg (*)] 50 mg PO DAILY 09/19/17 buPROPion SR [Wellbutrin 100mg SR 100 mg PO DAILY 09/19/17 (*)] Apixaban [Eliquis] 5 mg PO BID #60 tab 09/27/17 Medical Decision Making ED Course/Re-evaluation: The patient presents to the ED with oral bleeding from a superficial nonsuturable laceration involving the buccal mucosa of her left cheek. The patient is hemodynamically stable upon arrival. A gauze packing was applied by myself at 10:40 a.m. Reexamined the patient at 11:10 a.m.: Bleeding has improved however does continue to use. 3 mL of lidocaine with epinephrine infiltrated below superficial laceration. Patient was repacked at 11:20am. Recheck to patient at 11:50 a.m. and her small intraoral laceration is now hemostatic. She will be discharged home with instructions to return to the ED for any uncontrolled bleeding. She will hold her Eliquis this evening and tomorrow morning. Departure - Departure Disposition: Home, Routine, Self-Care Clinical Impression: Intraoral laceration Qualifiers: Encounter type: initial encounter Qualified Code(s): S01.512A - Laceration without foreign body of oral cavity, initial encounter Condition: Good Instructions: Laceration (ED) Additional Instructions: 1. Hold your Eliquis tonight and tomorrow morning. 2. Return to ED for any concerns or recurrent bleeding not resolved with packing and pressure. Referrals: MOMO LANDAVERDE [Primary Care Provider] - As per Instructions
[2017-12-22 11:47] VITALS: BP 158/107
== END 2017-12-22 12:00 | disposition home or self-care (01) ==
DX: S01.512A Laceration without foreign body of oral cavity, initial encounter (principal); X58.XXXA Exposure to other specified factors, initial encounter; Z79.01 Long term (current) use of anticoagulants

== ENCOUNTER 2018-04-02 09:01 | Observation (INO) | payer OTHER ==
--- NOTE | 2018-04-01 11:33 | GHP ---
DATE OF ADMISSION: 04/02/2018 HISTORY OF PRESENT ILLNESS: Patient is a 77-year-old female with gallstones without associated josie cystitis diagnosed incidentally by MRI. Today, she reports she has not had any symptoms from her gal lbladder recently. She had tried taking Prilosec last time she experienced right upper quadrant pain and this did not change anything. She is generally able to eat whatever she likes without any probl ems. She is anticoagulant on Eliquis, secondary to atrial fibrillation, and according to her, also because of her fairly recent sepsis, secondary to diverticulitis. Her leather tacker is Dr. Gaspar. PAST MEDICAL HISTORY: Includes atrial fibrillation, coronary artery disease, dyslipidemia, GERD, hyp ertension, hyperlipidemia. PAST SURGICAL HISTORY: Lumbar spine surgery, left knee replacement, femur repair, and L3-5 spinal fu lucas. MEDICATIONS: Eliquis, ezetimibe, Lopid, metoprolol, sertraline, Wellbutrin. ALLERGIES: Statin intolerance, also sulfa. FAMILY MEDICAL HISTORY: Includes coronary artery disease and congestive heart failure. SOCIAL HISTORY: Patient is a light alcohol drinker and a former tobacco smoker. REVIEW OF SYSTEMS: 10-point review of systems negative aside from that in the HPI. PHYSICAL EXAMINATION: GENERAL: Reveals a well-appearing, well-nourished female in no acute distress . HEENT: Normocephalic, atraumatic. No scleral icterus. CHEST: Clear to auscultation bilaterally . CARDIAC: Regular rate and rhythm. ABDOMEN: Soft, nontender, nondistended. No rebound or guardi ng. EXTREMITIES: Warm and dry. PSYCH: Normal mood and affect. IMPRESSION: This is a 77-year-old female with cholelithiasis. As mentioned above, she has been asym ptomatic recently, but does not want to have recurrent or new problems or complications. Plan is for laparoscopic cholecystectomy. Risks and options were discussed, including, but not limited to bleed ing, infection, nerve injury, bile duct injury, bile leak, retained stone, need for ERCP, and open pr ocedure, and she requests to proceed. She will also need cardiac clearance and to hold her Eliquis. /[id number]/MODL
[~2018-04-02 09:01] MED LIST changes: +BUPIVACAINE 0.5% 30 ML SDV ONE; -GADOBUTROL 10 ML VIAL IVP ONE; +HEPARIN 1000 UNIT/1 ML MDV ONE; +ceFAZolin 1 GM/5 ML SYR ONE; +cefOXitin SODIUM 2 GM in NS 100 ML IV ONE
[2018-04-02] MEDS ORDERED: LR 1,000 ML IV ONE (09:13)
--- NOTE | 2018-04-02 10:07 | PDHPUP ---
History & Physical Update H&P update statement: This history and physical update is based on an assessment of the patient which was completed after admission or registration (within 24 hours), but prior to the surgery/procedure. H&P update: H&P reviewed & patient examined, no change in patient's condition since H&P completed
[2018-04-02] MEDS ORDERED: oxyCODONE IR 5 MG TAB PO PRN (10:17)
[2018-04-02] MEDS ORDERED: ONDANSETRON 4 MG/2 ML VIAL IVP PRN ×2 (10:17→11:40)
[2018-04-02] MEDS ORDERED: ALBUTEROL 3 ML DEYVIAL IH PRN (10:17)
[2018-04-02] MEDS ORDERED: ACETAMINOPHEN 500 MG TAB PO PRN (10:17)
[2018-04-02] MEDS ORDERED: NALOXONE HCL 0.4 MG/ML INJ IVP PRN ×2 (10:17→12:11)
[2018-04-02] MEDS ORDERED: HYDROmorphONE/DILAUDID 2 MG/ML INJ IVP PRN (10:17)
[2018-04-02] MEDS ORDERED: DEXAMETHASONE 4 MG/ML VIAL IVP PRN (10:17)
--- NOTE | 2018-04-02 10:21 | PDANEPAE ---
ANE History of Present Illness Lap Cholecystomy ANE Past Medical History - Cardiovascular History Hx Hypertension: No Hx Arrhythmias: Yes Hx Chest Pain: No Hx Coronary Artery / Peripheral Vascular Disease: No Hx CHF / Valvular Disease: No Hx Palpitations: No Cardiovascular History Comment: atrial arrhythmia - Pulmonary History Hx COPD: No Hx Asthma/Reactive Airway Disease: No Hx Recent Upper Respiratory Infection: No Hx Oxygen in Use at Home: No Hx Sleep Apnea: No Sleep Apnea Screening Result - Last Documented: Negative - Neurologic History Hx Cerebrovascular Accident: No Hx Seizures: No Hx Dementia: No Neurologic History Comment: mild memory impairment since sepsis - Endocrine History Hx Diabetes: No - Renal History Hx Renal Disorders: Yes Renal History Comment: Hx UTI - Liver History Hx Hepatic Disorders: No - Neurological & Psychiatric Hx Hx Neurological and Psychiatric Disorders: Yes Neurological / Psychiatric History Comment: depression, anxiety - Cancer History Hx Cancer: No - Congenital Disorder History Hx Congenital Disorders: No - GI History Hx Gastrointestinal Disorders: Yes Gastrointestinal History Comment: hx diverticulitis - Other Health History Other Health History: wears glasses. hearing loss in left ear. bruises easily. chronic low back pain - Chronic Pain History Chronic Pain: Yes (low back) - Surgical History Prior Surgeries: left TKA. left femur fx repair. L3-5 fusion ANE Review of Systems Review of Systems: - Exercise capacity METS (RN): 3 METS ANE Patient History - Allergies Allergies/Adverse Reactions: nystatin [From Bio-Statin] Allergy (Verified 04/02/18 09:35) Sulfa (Sulfonamide Antibiotics) Allergy (Verified 04/02/18 09:35) Itching - Home Medications Home Medications: Ezetimibe [Zetia 10 MG (*)] DAILY 09/19/17 [Last Taken 04/01/18] Gemfibrozil [Lopid 600 MG (*)] BIDAC 09/19/17 [Last Taken 04/01/18] Sertraline HCl [Zoloft 50mg (*)] DAILY 09/19/17 [Last Taken 03/12/18] buPROPion SR [Wellbutrin 100mg SR (*)] DAILY 09/19/17 [Last Taken 04/01/18] Apixaban [Eliquis] BID 04/01/18 [Last Taken 03/29/18] Gabapentin [Neurontin 100 MG (*)] TID 04/01/18 [Last Taken 04/01/18] - NPO status NPO Since - Liquids (Date): 04/01/18 NPO Since - Liquids (Time): 20:00 NPO Since - Solids (Date): 04/01/18 NPO Since - Solids (Time): 18:00 - Smoking Hx Smoking Status: Never smoked - Family Anes Hx Family Hx Anesthesia Complications: none ANE Labs/Vital Signs - Vital Signs Blood Pressure: 194/107 Heart Rate: 79 Respiratory Rate: 18 O2 Sat (%): 99 Height: 167.64 cm Weight: 68.039 kg ANE Physical Exam - Airway Neck exam: FROM Mallampati Score: Class 2 Mouth exam: normal dental/mouth exam - Pulmonary Pulmonary: clear to auscultation - Cardiovascular Cardiovascular: regular rate and rhythym - ASA Status ASA Status: III ANE Anesthesia Plan Anesthesia Plan: general endotracheal anesthesia
[2018-04-02] MEDS ORDERED: PROPOFOL 200 MG/20 ML VIAL ONE (10:29)
[2018-04-02] MEDS ORDERED: ROCURONIUM 50 MG/5 ML VIAL ONE (10:30)
[2018-04-02] MEDS ORDERED: fentaNYL 100 MCG/2 ML INJ ONE ×2 (10:30→12:02)
[2018-04-02] MEDS ORDERED: ePHEDrine SULFATE 25 MG/5 ML SYR ONE (10:51)
[2018-04-02] MEDS ORDERED: SUGAMMADEX SODIUM 200 MG/2 ML VIAL IVP ONE (11:23)
[2018-04-02] MEDS ORDERED: ONDANSETRON 4 MG/2 ML VIAL ONE ×2 (11:23→12:24)
--- NOTE | 2018-04-02 11:30 | POSTOPPROG ---
Post Op Note Date of Operation: 04/02/18 Surgeon: Jared Brewer Installment Dealer: Tiara Lara Anesthesiologist: London Bates Anesthesia: GET(General Endotracheal) Pre-op Diagnosis: cholelithiasis Post-op Diagnosis: same Procedure: lap josie Findings: stones, adhesions Inf/Abcess present in the surg proc area at time of surgery?: No EBL: 40cc Complications: none Specimen(s): gallbladder to pathology
[2018-04-02] MEDS ORDERED: LABETALOL HCL 20 MG/4 ML INJ IVP ONE ×2 (11:31→13:24)
--- NOTE | 2018-04-02 11:35 | POSTANESTH ---
Post Anesthetic Evaluation Cardiovascular Status: Tx Hyper/Hypo-tension Respiratory Status: Normal, Stable Level of Consciousness/Mental Status: Can Participate in Eval, Mildly Sleepy, Arousable Pain Control: Adequate, Prn Tx Ordered Nausea/Vomiting Control: Adequate, Prn Tx Ordered Complications Possibly Related to Anesthesia: None Noted
[2018-04-02] MEDS ORDERED: HYDROmorphONE/DILAUDID 1 MG/ML INJ IVP PRN (11:40)
[2018-04-02] MEDS: LABETALOL HCL 20 MG/4 ML INJ IVP PRN ×4 (11:49→12:32)
[2018-04-02] MEDS: fentaNYL 100 MCG/2 ML INJ IVP PRN ×3 (12:03→12:34)
[2018-04-02] MEDS ORDERED: HYDROCODONE/APAP 5/325 TAB ONE (12:23)
[2018-04-02] MEDS: HYDROCODONE/APAP 5/325 TAB PO PRN ×2 (12:25→20:21)
[2018-04-02] MEDS: METOPROLOL TARTRATE 25 MG TAB PO SCH ×2 (13:16→20:21)
[2018-04-02] MEDS ORDERED: hydrALAZINE 20 MG/ML VIAL IVP PRN (16:20)
[2018-04-02 17:12] LABS: PLATELET COUNT 292 10^3/uL (150-400)
[2018-04-02] MEDS: GEMFIBROZIL 600 MG TAB PO SCH (17:52)
[2018-04-02] MEDS ORDERED: NS 1,000 ML IV SCH (18:15)
[2018-04-02] MEDS: buPROPion SR 150 MG TAB PO SCH (20:21)
--- NOTE | 2018-04-02 20:33 | GCON ---
INTERNAL MEDICINE CONSULTATION DATE OF CONSULTATION: 04/02/2018 REASON FOR CONSULTATION: Medical opinion regarding hypertension. HISTORY OF PRESENT ILLNESS: The patient is a 77-year-old female who presents for an elective cholecy stectomy with Dr. Brewer. Reportedly gallstones were incidentally found on other imaging. She has davalos d intermittent right upper quadrant pain. Her last severe episode was 3 weeks ago. She has had a di fficult time, however, differentiating her right upper quadrant pain from her other abdominal pains w hich will be detailed below. The patient was admitted to the hospital for an episode of diverticulitis with E coli bacteremia in 2017 she describes that she still is "suffering" from sepsis. Further clarification reveals that she never fully recovered from this episode of diverticulitis. She has had persistent abdominal pain since that time in a similar location. She has lost 30 pounds. She has persistent problems with ba en and poor memory. Her oral intake has been reduced. She denies a change in bowel movements. S he feels very fatigued and weak. She did not have a followup colonoscopy after her diverticulitis, a nd her last colonoscopy was 10 years ago. PAST MEDICAL HISTORY: 1. Atrial fibrillation. 2. Hyperlipidemia. 3. Diverticulitis August 2017 with E coli bacteremia as described above. MEDICATIONS: Please see computer record for full detailed list. ALLERGIES: To statins and sulfa. SOCIAL HISTORY: Distant smoking. No alcohol. She lives with her . REVIEW OF SYSTEMS: Complete review of systems obtained. Review of systems negative on constitutiona l, HEENT, GI, pulmonary, cardiovascular, , hematology, skin, endocrine, psych, except for positives as in HPI. FAMILY HISTORY: Reviewed, noncontributory to presenting complaint. PHYSICAL EXAMINATION: GENERAL APPEARANCE: Well-developed, well-nourished female, in no distress. V ITAL SIGNS: Temperature is 36.4, pulse 65, blood pressure 136/122, satting 99% on 2 L. EYES: Andria l conjunctivae. Pupils reactive to light. ENT: Normal ears, nose. Hearing intact. Normal teeth. Oropharynx moist. NECK: Trachea midline. No thyromegaly. CHEST: Normal effort. Lungs clear to auscultation bilaterally. CARDIOVASCULAR: Regular rhythm. No murmur. No lower extremity edema. A BDOMEN: Soft, difficult to do a good abdominal examination as she is immediately post cholecystectom y. No hepatosplenomegaly. SKIN: Warm, dry, intact. No rash. MUSCULOSKELETAL: No cyanosis or clu bbing. Strength 5/5 upper and lower extremities. NEURO: Cranial nerves intact. Normal sensation t o light touch. PSYCH: Alert and oriented x3. Normal affect. Normal judgment. Normal memory. DIAGNOSTIC DATA: Lipase is 101. CT scan of the abdomen and pelvis reviewed. It showed a mild diver ticulitis. Medical records reviewed. She was admitted August 2017. Had E coli in her blood. Infectio us Disease saw her in consultation. They were unclear if it was from this mild diverticulitis versus urinary tract infection. She had atrial fibrillation as a complication of her hospitalization and s aw Dr. Barros. ASSESSMENT AND PLAN: 1. Chronic cholecystitis status post an elective laparoscopic cholecystectomy. Operative findings w ere extensive stones and adhesions. She is doing well post surgery. 2. Recent diverticulitis with Escherichia coli bacteremia. She has not yet fully recovered. She co mplains of persistent abdominal pain with a 30-pound weight loss, weakness and decreased balance. Wi ll consult Physical Therapy and Occupational Therapy. She definitely needs a followup colonoscopy. Will check some basic laboratory studies, further workup depending on clinical course. 3. Hypertension. She denies a history of hypertension as an outpatient. On presentation for electi ve surgery today her blood pressure was 194/107. She denies any anxiety related to this surgery. She did get a dose of oral metoprolol after surgery, and her blood pressure is already coming down nicel y to 141/81. I would continue metoprolol 25 mg p.o. b.i.d. and monitor for further blood pressure el evations. Intravenous hydralazine is ordered for extreme blood pressure increase. 4. Atrial fibrillation. Eliquis was held prior to surgery and can be resumed when okay with Surgery . Thank you very much for this consultation. Internal Medicine will continue to follow. /[id number]/MODL
[2018-04-02] MEDS: GABAPENTIN 100 MG CAP PO SCH (22:26)
[2018-04-03] MEDS: HYDROCODONE/APAP 5/325 TAB PO PRN (04:21)
[2018-04-03 05:16] LABS: PLATELET COUNT 295 10^3/uL (150-400)
[2018-04-03] MEDS: GEMFIBROZIL 600 MG TAB PO SCH (08:23)
[2018-04-03] MEDS ORDERED: EZETIMIBE 10 MG TAB PO SCH (09:00)
[2018-04-03] MEDS ORDERED: SERTRALINE HCL 50 MG TAB PO SCH (09:00)
[2018-04-03] MEDS: METOPROLOL TARTRATE 25 MG TAB PO SCH (09:23)
[2018-04-03] MEDS: buPROPion SR 150 MG TAB PO SCH (09:23)
[2018-04-03] MEDS: GABAPENTIN 100 MG CAP PO SCH (09:23)
--- NOTE | 2018-04-03 09:52 | HOSPPROG ---
Hospitalist Progress Note Assessment/Plan: Lap josie - POD #1, doing well, tolerating reg diet -post-op management per surg Hypertension - improved with metoprolol -cont as outpt, close f/u with pcp A fib - resume Eliquis tonight if ok'd by surg, rate controlled now on BB H/O diverticulitis / e coli bacteremia - no signs of recurrence, lower abdomen non-tender, afebrile -outpt colonoscopy Elevated LFT's - follow Full code DVT PPLX - SCD's, resume eliquis per surg Dispo - per surg Subjective: Pt feels well. Pain free this am, ate her whole breakfast. No fevers. No N/V. Objective: Vital Signs Temp Pulse Resp BP Pulse Ox 36.4 C 65 14 152/86 H 94 04/03/18 08:04 04/03/18 09:23 04/03/18 08:04 04/03/18 09:23 04/03/18 08:04 Laboratory Results 04/03/18 04:38 04/03/18 04:38 04/02/18 04/03/18 04/04/18 05:59 05:59 05:59 Intake Total 2220 Output Total 955 Balance 1265 ICD10 Worksheet Patient Problems: Problems Problem Status Onset Diverticulitis Acute
[2018-04-03] MEDS ORDERED: APIXABAN 5 MG TAB PO SCH ×2 (10:02→10:15)
--- NOTE | 2018-04-03 10:29 | SOAPPROG ---
SOAP Progress Note Assessment/Plan: Assessment: 77 y/o F s/p lap josie for cholelithiasis POD #1 Hypertension: improved on metoprolol. Continue and follow up with PCP. A-fib: Ok to restart eliquis today Dispo home today with home care. S: Feeling well. Did have significant pain last night, but improved now. Tolerating a regular diet. O: Alert Afebrile No increased WOB Abdomen: soft, nontender, nondistended, +bs, incisions cdi 04/03/18 10:26 Objective: Vital Signs Temp Pulse Resp BP Pulse Ox 36.4 C 65 14 152/86 H 94 04/03/18 08:04 04/03/18 09:23 04/03/18 08:04 04/03/18 09:23 04/03/18 08:04 Laboratory Results 04/03/18 04:38 04/03/18 04:38 04/02/18 04/03/18 04/04/18 05:59 05:59 05:59 Intake Total 2220 Output Total 955 Balance 1265 ICD10 Worksheet Patient Problems: Problems Problem Status Onset Diverticulitis Acute
--- NOTE | 2018-04-03 13:03 | PDIAF ---
- Diagnosis Code Status: Full Code - Medication Management Discharge Medications: electronically signed and located in the Home Medication List. PICC Care - Routine: N/A - Orders Services needed: Home Care, Registered Nurse, Physical Therapy, Speech Language Pathologist Home Care Face to Face: I certify that this patient was under my care and that I had the required sdoy-nd-sugh encounter meeting the encounter requirements on the discharge day. My findings support the fact that the patient is homebound as defined in Home Care Face to Face Continued: CMS Chapter 7 Medicare Benefits Manual 30.1.1 , The condition of the patient is such that there exists a normal inability to leave home and consequently, leaving home would require a considerable and taxing effort. Diet Recommendation: no restrictions on diet Diet Texture: Regular Texture Diet Additional Instructions: No lifting over 15 lbs. Ok to shower tomorrow. Your stitches will dissolve. Leave steri strips on until they fall off. Restart your Eliquis. Restart metoprolol for your blood pressure and follow up with your PCP in one week. Rx for Clifford for pain. Take a stool softener as needed to avoid constipation. Follow up in our office in 2 weeks. Call with fever, chills or increased pain. - Follow Up Care Current Providers and Referrals: MOMO LANDAVERDE [Primary Care Provider] - follow up in 1 week Jared Brewer MD [Medical Doctor] - follow up in 2 weeks
--- NOTE | 2018-04-03 13:09 | ASMTLACE ---
KULDIP Length of stay for Answers: 1 day current admission Comorbidities - select Answers: Opioid dependence all that apply / Chronic pain Other Notes: Hx of diverticulitis # of Emergency department Answers: 1-2 visits in the last 6 months Social determinants Answers: Mental health diagnosis (anxiety, depression, pers onality disorders, etc.) Score: 10 Date Signed: 04/03/2018 01:09 PM Electronically Signed By:Idalia Castillo RN
--- NOTE | 2018-04-03 13:14 | ASMTCMCOM ---
CM Note CM Note Notes: Chart reviewed 76 year old female s/p lap cholecystectomy. She has been medically cleared for discharge. Therapies recommend [facility]. Patient previously used [facility]. Referral placed and they can accept. CM available should other needs arise. Plan: Dc to home with [facility] Date Signed: 04/03/2018 01:13 PM Electronically Signed By:Idalia Castillo RN
--- NOTE | 2018-04-03 13:16 | ASMTDCNOTE ---
Case Management Discharge Discharge Order Complete? Answers: Yes Patient to Obtain Answers: via Family Medications Transportation Arranged Answers: Family/Friends Faxed Final Orders Answers: Yes Family Notified Answers: Yes Discharge Comments Notes: Patient medically cleared for dc to home with [facility]. Date Signed: 04/03/2018 01:16 PM Electronically Signed By:Idalia Castillo RN
[2018-04-03 14:18] VITALS: BP 129/84
--- NOTE | 2018-04-03 22:26 | GOP ---
DATE OF OPERATION: 04/03/2018 SURGEON: Jared Brewer MD WATERMASTER: ASA Cartwright. ANESTHESIOLOGIST: London Bates DO. PREOPERATIVE DIAGNOSIS: Symptomatic cholelithiasis and cholecystitis. POSTOPERATIVE DIAGNOSIS: Symptomatic cholelithiasis and cholecystitis. PROCEDURE PERFORMED: Laparoscopic cholecystectomy. FINDINGS: Patient was found to have gallbladder full of stones. Ducts were small. She had signific ant amount of adhesions to the gallbladder and some mild edema. DESCRIPTION OF PROCEDURE: Patient was taken to the operating room where she received satisfactory ge neral endotracheal anesthesia by Dr. Bates. She was placed in supine position, prepped and draped in usual sterile fashion. A periumbilical incision was made. A Veress needle inserted. Pneumoperiton eum was established. Trocar was introduced. Laparoscope introduced. Good visualization was obtaine d. Three other trocars were placed in the upper abdomen under direct vision. The gallbladder was el evated up. It was obscured by adhesions which were taken down with electrocautery exposing the entir e gallbladder. The cystic triangle was then carefully exposed. Dissection isolated the cystic duct and cystic artery with a good clear view and separation from the lower attachments to the liver. The common duct was readily visible and spared from injury. The cystic duct and cystic artery were mult iply hemoclipped and divided, again with care to avoid injury to the common duct. The peritoneum of the gallbladder was incised and it was dissected free from the bed and hepatic fossa and extracted th rough the upper midline port site. The wound was irrigated. Hemostasis was assured. Trocars remove d under direct vision. Trocar sites were closed with 0 Vicryl for the fascia, 4-O Monocryl subcuticu lar stitch for the skin. All layers infiltrated with 0.5% Marcaine. Blood loss negligible. Taken t o the recovery room in good condition. Copy requested to: /[id number]/MODL
== END 2018-04-03 15:29 | disposition home or self-care (01) ==
LOC: FSGY 09:01 → F3E 11:38 → F1N 12:34
PROVIDERS: ADMIT Surgery; ATTEND Surgery
PROC: 0FT44ZZ Resection of Gallbladder, Percutaneous Endoscopic Approach (ICD-10-PCS; principal; 2018-04-02 10:30)
DX: K80.10 Calculus of gallbladder with chronic cholecystitis without obstruction (principal); I48.91 Unspecified atrial fibrillation; M54.5 Low back pain; I25.10 Atherosclerotic heart disease of native coronary artery without angina pectoris; E78.5 Hyperlipidemia, unspecified; K21.9 Gastro-esophageal reflux disease without esophagitis; I10 Essential (primary) hypertension; Z86.19 Personal history of other infectious and parasitic diseases; Z96.652 Presence of left artificial knee joint; Z98.1 Arthrodesis status; Z79.01 Long term (current) use of anticoagulants
CPT/HCPCS: 47562; 88304; 97116; 97161; 97166; G8978; G8979; G8987; G8988; G8989; J0360; J0690; J0694; J1170; J2405; J2704; J3010

== ENCOUNTER → 2018-07-17 | Outpatient (CLI) | payer OTHER | LOC: FIMAGING 18:46 | PROVIDERS: ATTEND Family Medicine | DX: G93.40 Encephalopathy, unspecified (principal) | CPT/HCPCS: 70551-PN ==

== ENCOUNTER → 2018-07-25 | Outpatient (CLI) | payer OTHER | LOC: FIMAGING 09:27 | PROVIDERS: ATTEND Internal Medicine Nephrology | DX: N28.9 Disorder of kidney and ureter, unspecified (principal) ==

== ENCOUNTER 2018-08-17 17:52 | Emergency (ER) | payer OTHER ==
[2018-08-17 17:59] VITALS: BP 165/94
--- NOTE | 2018-08-17 18:31 | EDPHY ---
H & P Time Seen by Provider: 08/17/18 18:13 HPI/ROS: CHIEF COMPLAINT: Back pain HISTORY OF PRESENT ILLNESS: Patient has had worsening back pain for the past 2 months. She describes it as back and lower right hip radiating into the posterior right thigh, worse with movement or standing, moderate to severe. She can walk for about 5 min and then has to lie down after about 30 min lying down feels better. No weakness or numbness in the legs or feet and no incontinence. No recent injury or trauma. She does have a previous L3 through L5 fusion. She is on Eliquis, no recent injury fall or trauma. She did have an MRI at [facility] dated 08/08/2018 and I was able to review the report which says that she has mild spinal canal severe left and mild right foraminal stenosis at L2-3, mild to moderate foraminal stenosis at L3-4, and moderate to severe right and mild left foraminal stenosis at L5-S1. REVIEW OF SYSTEMS: Eye: no change in vision ENT: no sore throat Cardiac: no chest pain or syncope Pulmonary: No cough or shortness of breath Abdomen: No abdominal pain Musculoskeletal: HPI Skin: no rash Neuro: History of difficulty with memory and with her balance after having sepsis a year ago, no new changes. Constitutional: no fever : No incontinence A comprehensive 10 point review of systems is otherwise negative aside from elements mentioned in the history of present illness. PAST MEDICAL HISTORY: Includes urosepsis a year ago, depression, left knee replacement, spinal fusion, hysterectomy, atrial fibrillation on Eliquis, diverticulitis Social history: Primary care is Dr. Richey at [facility] Appearance: Alert and conversant, cooperative. Eyes: No scleral icterus. ENT, Mouth: Normal mucous membranes. Respiratory: Normal respiratory effort, breath sounds equal, lungs are clear to auscultation. Cardiovascular: Regular rate and rhythm. Gastrointestinal: Abdomen is soft and non tender. No pulsatile mass. Neurological: Alert, face symmetric, normal motor and sensory in extremities. Toes downgoing bilaterally, patellar reflexes 1+ and symmetric, no clonus. Straight leg raising positive at 45 degrees on the right and negative on the left. Extensor hallucis function 5/5 on both sides. Skin: Warm and dry, no rashes. Musculoskeletal: No midline spinal tenderness. She has tenderness over the right sciatic notch. Psychiatric: Not agitated. Emergency Department course/MDM: 1830: discussed with neurosurgery Dr. Oliva, MRI dated 08/08/2018 discussed, recommended medrol dose pack, steroids/pain medication/gabapentin and office followup. Patient has gabapentin at home which she can restart. I considered but I think unlikely to be epidural abscess, spinal infection, vascular claudication, cauda equina syndrome. We discussed admission versus treatment at home; the patient would like to go home and try outpatient management at this time. She was able to walk to the bathroom independently although with pain. Smoking Status: Never smoked Constitutional: Initial Vital Signs Temperature (C) 37 C 08/17/18 17:56 Heart Rate 68 08/17/18 17:56 Respiratory Rate 16 08/17/18 17:56 Blood Pressure 165/94 H 08/17/18 17:56 O2 Sat (%) 97 08/17/18 17:56 O2 Delivery Mode Room Air Allergies/Adverse Reactions: Ntoywtm-Otg-Yle Reductase Inhibitor Allergy (Verified 04/02/18 14:16) Other-Enter Comments Sulfa (Sulfonamide Antibiotics) Allergy (Verified 04/02/18 14:16) Other-Enter Comments Home Medications: Medication Instructions Recorded Ezetimibe [Zetia 10 MG (*)] 10 mg PO DAILY 09/19/17 Gemfibrozil [Lopid 600 MG (*)] 600 mg PO BIDAC 09/19/17 Sertraline HCl [Zoloft 50mg (*)] 50 mg PO DAILY 09/19/17 Apixaban [Eliquis] 5 mg PO DAILY 04/01/18 Gabapentin [Neurontin 100 MG (*)] 100 mg PO TID 04/01/18 Acetaminophen [Tylenol 325mg (*)] 325 mg PO DAILY PRN 04/02/18 Calcium Carbonate [Oyster Shell 500 mg PO DAILY 04/02/18 Calcium 500 mg (*)] Hydrocodone/Acetaminophen [[place] 1 - 2 each PO Q4H PRN #20 tablet 04/02/18 5-325 Tablet] buPROPion SR [Wellbutrin 150mg SR 150 mg PO BID 04/02/18 (*)] Metoprolol Tartrate 12.5 mg PO BID #60 tablet 04/03/18 methylPREDNISolone [Medrol Dose 1 each PO AD #1 ea 08/17/18 Stephen] oxyCODONE/APAP 5/325 [Percocet] 1 tab PO Q4-6PRN PRN #11 tab 08/17/18 traMADol 08/17/18 Medical Decision Making - Data Points Medications Given: Discontinued Medications Dexamethasone (Decadron) 8 mg PO EDNOW ONE Stop: 08/17/18 18:36 Last Admin: 08/17/18 18:46 Dose: 8 mg Gabapentin (Neurontin) 600 mg PO EDNOW ONE Stop: 08/17/18 18:37 Last Admin: 08/17/18 18:46 Dose: 600 mg Oxycodone/Acetaminophen (Percocet 5/325) 1 tab PO EDNOW ONE Stop: 08/17/18 18:36 Last Admin: 08/17/18 18:46 Dose: 1 tab Oxycodone/Acetaminophen (Percocet 5/325mg Prepack#4) 1 btl TAKEHOME EDNOW ONE Stop: 08/17/18 18:51 Last Admin: 08/17/18 18:53 Dose: 1 btl Departure - Departure Disposition: Home, Routine, Self-Care Clinical Impression: Lumbar radiculopathy, right Condition: Good Instructions: Oxycodone/Acetaminophen (By mouth), Lumbar Radiculopathy (ED) Additional Instructions: Follow-up with helicopter specialist Dr. Oliva in the office, call this week for appointment. I discussed the MRI with him. Return right away for worsening pain or incontinence or weakness or numbness in your legs or feet. Restart your gabapentin prescription, try for at least the next 4 or 5 days and see if it helps. Referrals: MOMO LANDAVERDE [Primary Care Provider] - As per Instructions Andrey Oliva MD [Medical Doctor] - As per Instructions Prescriptions: methylPREDNISolone [Medrol Dose Stephen] 1 each PO AD #1 ea oxyCODONE/APAP 5/325 [Percocet] 1 tab PO Q4-6PRN PRN #11 tab PRN Reason: Pain
[2018-08-17] MEDS ORDERED: DEXAMETHASONE 4 MG TAB PO ONE (18:35)
[2018-08-17] MEDS ORDERED: OXYCODONE/APAP 5/325 TAB PO ONE (18:35)
[2018-08-17] MEDS ORDERED: GABAPENTIN 300 MG CAP PO ONE (18:36)
[2018-08-17] MEDS ORDERED: OXYCODONE/APAP 5/325MG PREPACK#4 BTL TAKEHOME ONE (18:50)
== END 2018-08-17 18:50 | disposition home or self-care (01) ==
DX: M54.16 Radiculopathy, lumbar region (principal); Z98.1 Arthrodesis status; Z79.01 Long term (current) use of anticoagulants

== ENCOUNTER 2018-08-28 17:18 | Inpatient (IN) | payer OTHER ==
--- NOTE | 2018-08-28 17:20 | EDPHY ---
HPI/HX/ROS/PE/MDM Narrative: CHIEF COMPLAINT: Fall, hip injury HPI: This patient is an 78 year old female with past medical history including atrial fibrillation, spinal fusion, and diverticulitis. She arrives today via EMS following a mechanical fall this afternoon. She was making dinner for her and tripped over his feet in the kitchen. She did strike her head on the right/back, but denies any loss of consciousness. Her primary complaint is right hip pain which radiates to her knee. EMS crews administered 10mg IM morphine for pain relief; they were unable to obtain IV access. EMS crews note the patient was somewhat hypertensive in transport at 177/96. The patient is generally anticoagulated but discontinued her Eliquis yesterday. The patient denies any other recent trauma or illness. REVIEW OF SYSTEMS: A comprehensive 10 system review of systems is otherwise negative aside from elements mentioned in the history of present illness and medical decision making. PMH: Includes urosepsis a year ago, depression, left knee replacement, spinal fusion, hysterectomy, atrial fibrillation on Eliquis, diverticulitis SOCIAL HISTORY: Family at bedside. . Retired. PHYSICAL EXAM: General:Patient is alert, in no acute distress. ENT:Eyes are normal to inspection. ENT inspection normal. Neck: C-collar placed by EMS. Normal inspection. Full range of motion. Respiratory:No respiratory distress. Breath sounds normal bilaterally. Cardiovascular: Regular rate and rhythm. Strong peripheral pulses. Normal cap refill. Abdomen:The abdomen is nontender to palpation. There are no peritoneal signs. There are normal bowel sounds. Back: Normal to inspection. No tenderness to palpation. Skin: Skin tear to right elbow. Normal color. No rash. Warm and dry. Extremities: Pain and obvious deformity to right hip. Other extremities atraumatic. Neuro: Oriented x3. Normal motor function. Normal sensory function. ED Course: 17:18 Met EMS on arrival 78 y/o female presents with right hip pain following a mechanical fall this evening. She struck her head as well in this fall. She is recently anticoagulated (Eliquis) but discontinued this yesterday. IV established. Plan for labs including CBC, chemistries, co-ag panel. Plan for CT head and c-spine. Plan for x-ray of left hip. She continues to experience significant pain following morphine administration by EMS. Plan to administer 0.5mg IV Dilaudid for pain relief. 17:[address] Merritt, radiologist. CT head is negative for acute processes. CT c-spine is pending. 18:[address] Merritt, CT c-spine is negative for acute processes. 18:16 Reviewed x-ray images at bedside. Evidence of acute right femoral neck fracture. Reassessed patient. Discussed imaging results. Plan to consult with orthopedics and admit to the hospitalist service for perioperative management. 18:[address] Lundy, orthopedic surgeon. Patient's last PO intake was around 14:00. She discontinued her Eliquis about 48 hours ago. He concurs with the plan to admit. 18:53 Dr. Gutierrez, hospitalist, accepts admission for perioperative management of acute right femoral neck fracture. - Data Points Imaging Results: Imaging Impressions Cervical Spine CT 08/28/18 17:21 Impression: 1. No definite acute fracture. 2. Moderate cervical spondylosis resulting in mild to moderate central canal stenosis from C3-C4 through C7-T1, worse at C6-C7. 3. If there is persistent pain or neurological deficit, recommend MR cervical spine and consider flexion and extension views, if clinically indicated. Findings and recommendations discussed with Emergency Department physician, Cheng Mohamud M.D., at 1755 hours, on August 28, 2018. Final report concurs with initial preliminary interpretation. Head CT 08/28/18 17:21 Impression: 1. Mild atrophy. 2. No acute hemorrhage, hydrocephalus, or mass effect. 3. Cerebrovascular atherosclerosis. 4. No definite acute infarct. 5. Moderate microvascular ischemic gliosis. 6. No epidural or subdural hematoma. Findings and recommendations discussed with Emergency Department physician, Cheng Mohamud MD at 1750 hour, 08/28/2018. Final report concurs with initial preliminary interpretation. Hip X-Ray 08/28/18 17:21 Impression: Acute right femoral neck fracture. Imaging: Discussed imaging studies w/ bilingual call center representative Radiologist, I viewed and interpreted images myself Laboratory Results: Laboratory Results 08/28/18 17:30 08/28/18 17:30 08/28/18 08/28/18 08/28/18 17:30 17:30 17:30 WBC 10.18 10^3/uL H 10^3/uL (3.80-9.50) RBC 4.03 10^6/uL L 10^6/uL (4.18-5.33) Hgb 11.7 g/dL L g/dL (12.6-16.3) Hct 36.0 % L % (38.0-47.0) MCV 89.3 fL fL (81.5-99.8) MCH 29.0 pg pg (27.9-34.1) MCHC 32.5 g/dL g/dL (32.4-36.7) RDW 15.1 % % (11.5-15.2) Plt Count 380 10^3/uL 10^3/uL (150-400) MPV 9.5 fL fL (8.7-11.7) Neut % (Auto) 85.9 % H % (39.3-74.2) Lymph % (Auto) 8.7 % L % (15.0-45.0) [place] % (Auto) 4.2 % L % (4.5-13.0) Eos % (Auto) 0.0 % L % (0.6-7.6) Baso % (Auto) 0.1 % L % (0.3-1.7) Nucleat RBC Rel Count 0.0 % % (0.0-0.2) Absolute Neuts (auto) 8.74 10^3/uL H 10^3/uL (1.70-6.50) Absolute Lymphs (auto) 0.89 10^3/uL L 10^3/uL (1.00-3.00) Absolute Monos (auto) 0.43 10^3/uL 10^3/uL (0.30-0.80) Absolute Eos (auto) 0.00 10^3/uL L 10^3/uL (0.03-0.40) Absolute Basos (auto) 0.01 10^3/uL L 10^3/uL (0.02-0.10) Absolute Nucleated RBC 0.00 10^3/uL 10^3/uL (0-0.01) Immature Gran % 1.1 % % (0.0-1.1) Immature Gran # 0.11 10^3/uL H 10^3/uL (0.00-0.10) PT 14.0 SEC SEC (12.0-15.0) INR 1.12 (0.83-1.16) APTT 27.6 SEC SEC (23.0-38.0) Sodium 136 mEq/L mEq/L (135-145) Potassium 4.2 mEq/L mEq/L (3.5-5.2) Chloride 105 mEq/L mEq/L (97-110) Carbon Dioxide 21 mEq/l L mEq/l (22-31) Anion Gap 10 mEq/L mEq/L (6-14) BUN 43 mg/dL H mg/dL (7-23) Creatinine 1.0 mg/dL mg/dL (0.6-1.0) Estimated GFR 53 Glucose 93 mg/dL mg/dL (70-100) Calcium 9.6 mg/dL mg/dL (8.5-10.4) Medications Given: Discontinued Medications Hydromorphone HCl (Dilaudid) 0.5 mg IVP EDNOW ONE Stop: 08/28/18 17:33 Last Admin: 08/28/18 17:46 Dose: 0.5 mg Hydromorphone HCl (Dilaudid) 0.5 mg IVP EDNOW ONE Stop: 08/28/18 18:56 Last Admin: 08/28/18 19:00 Dose: 0.25 mg General Initial Vital Signs: Initial Vital Signs Temperature (C) 36.9 C 08/28/18 17:28 Heart Rate 74 08/28/18 17:28 Respiratory Rate 16 08/28/18 17:28 Blood Pressure 197/108 H 08/28/18 17:28 O2 Sat (%) 96 08/28/18 17:28 O2 Delivery Mode Room Air Allergies/Adverse Reactions: Twxlcyp-Qdz-Amp Reductase Inhibitor Allergy (Verified 08/28/18 17:28) Other-Enter Comments Sulfa (Sulfonamide Antibiotics) Allergy (Verified 08/28/18 17:28) Other-Enter Comments Home Medications: Medication Instructions Recorded Ezetimibe [Zetia 10 MG (*)] 10 mg PO DAILY 09/19/17 Gemfibrozil [Lopid 600 MG (*)] 600 mg PO BIDAC 09/19/17 Sertraline HCl [Zoloft 50mg (*)] 50 mg PO DAILY 09/19/17 Apixaban [Eliquis] 5 mg PO DAILY 04/01/18 Gabapentin [Neurontin 100 MG (*)] 100 mg PO TID 04/01/18 Acetaminophen [Tylenol 325mg (*)] 325 mg PO DAILY PRN 04/02/18 Calcium Carbonate [Oyster Shell 500 mg PO DAILY 04/02/18 Calcium 500 mg (*)] Hydrocodone/Acetaminophen [[place] 1 - 2 each PO Q4H PRN #20 tablet 04/02/18 5-325 Tablet] buPROPion SR [Wellbutrin 150mg SR 150 mg PO BID 04/02/18 (*)] Metoprolol Tartrate 12.5 mg PO BID #60 tablet 04/03/18 methylPREDNISolone [Medrol Dose 1 each PO AD #1 ea 08/17/18 Stephen] oxyCODONE/APAP 5/325 [Percocet] 1 tab PO Q4-6PRN PRN #11 tab 08/17/18 traMADol 08/17/18 Departure - Departure Disposition: [facility] Inpatient Acute Clinical Impression: Fracture of femoral neck, right, closed Qualifiers: Encounter type: initial encounter Qualified Code(s): S72.001A - Fracture of unspecified part of neck of right femur, initial encounter for closed fracture Condition: Fair Report Scribed for: Cheng Mohamud Report Scribed by: Luma Nance Date of Report: 08/28/18 Time of Report: 17:23 Physician Review and Approval Statement: Portions of this note were transcribed by an ED scribe. I personally performed the history, physical exam, and medical decision making; and confirm the accuracy of the information in the transcribed note.
[2018-08-28] MEDS ORDERED: HYDROmorphONE/DILAUDID 2 MG/ML INJ IVP ONE ×2 (17:32→18:55)
[2018-08-28] MEDS ORDERED: HYDROmorphONE/DILAUDID 1 MG/ML INJ ONE (17:33)
[2018-08-28 17:44] LABS: PLATELET COUNT 380 10^3/uL (150-400)
[2018-08-28 17:53] LABS: INR 1.12 (0.83-1.16)
[2018-08-28] MEDS ORDERED: ACETAMINOPHEN 325 MG TAB PO PRN (19:14)
[2018-08-28] MEDS ORDERED: ONDANSETRON 4 MG/2 ML VIAL IVP PRN (19:14)
[2018-08-28] MEDS ORDERED: ONDANSETRON DISINTEGRATING 4 MG TAB PO PRN (19:14)
[2018-08-28] MEDS ORDERED: LACTULOSE 20 GM/30 ML UDCUP PO PRN (19:17)
[2018-08-28] MEDS ORDERED: MAGNESIUM HYDROXIDE 30 ML UDCUP PO PRN (19:17)
[2018-08-28] MEDS ORDERED: BISACODYL 10 MG SUPP PR PRN (19:17)
[2018-08-28] MEDS ORDERED: oxyCODONE IR 5 MG TAB PO PRN (19:17)
[2018-08-28] MEDS ORDERED: POLYETHYLENE GLYCOL 3350 17 GM PKT PO PRN (19:17)
[2018-08-28] MEDS: ACETAMINOPHEN 500 MG TAB PO SCH (20:24)
[2018-08-28] MEDS: METOPROLOL TARTRATE 25 MG TAB PO SCH (20:24)
--- NOTE | 2018-08-28 20:29 | GHP ---
[f rep st] HISTORY AND PHYSICAL DATE OF ADMISSION: 08/28/2018 CHIEF COMPLAINT: Right femoral neck fracture. PRIMARY TRAFFIC SUPERINTENDENT: Dr. Gaspar. HISTORY OF PRESENT ILLNESS: A pleasant 78-year-old female with atrial arrhythmia on Eliquis, chronic back pain, hypertension, presents after a fall. She was changing positions in the kitchen and did not see her bending over to get into a cupboard and tripped over his leg. She landed on her right side and immediately developed right leg pain, sharp in nature. X-ray in the ED showed acute right femoral neck fracture. Pain is currently 5/10. She is on Eliquis for her arrhythmia with a CHADS-VASc score 5, but she has been holding for the last 48 hours for a scheduled spinal injection tomorrow. At baseline, she does not have chest pain, shortness of breath, dizziness, or lightheadedness. She did not have loss of consciousness. REVIEW OF SYSTEMS: I completed a 10-point review of systems, negative except as noted in the HPI. PAST MEDICAL HISTORY: Atrial arrhythmia with CHADS-VASc score on Eliquis, metoprolol. Chronic back pain, scheduled for a spinal injection tomorrow. UTI , sepsis in August 2017, diverticulitis, CAD with a positive calcium score medically managed, hypertension. PAST SURGICAL HISTORY: lumbar fusion, left femur fracture repair, cholecystectomy, tubal ligation. SOCIAL HISTORY: Lives in [place] with her . 55 years. She has 2 kids, 8 grandkids. 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 FAMILY HISTORY: Noncontributory. HOME MEDICATIONS: Percocet, Wellbutrin, sertraline 50 mg daily, metoprolol 12.5 mg b.i.d., Lopid 600 mg b.i.d., gabapentin 100 mg t.i.d., Zetia 10 mg daily , calcium. Eliquis was to have been on hold for now. ALLERGIES: To statins, sulfa. PHYSICAL EXAMINATION: VITAL SIGNS: Temperature 36.9, blood pressure 197/108, heart rate in the 70s, respirations 16, 96% on room air. GENERAL: She is mildly uncomfortable in no acute distress. HEENT: PERRLA. Moist mucous membranes. CV: Tachy but regular. LUNGS: Clear anteriorly. ABDOMEN: Soft, nontender. : No Gallagher. MUSCULOSKELETAL: Right leg is externally rotated. Right forearm with 2 moderate-sized skin tears. NEURO: 2 through 12 intact. PSYCHIATRIC: Alert and oriented x3. LABORATORY: WBC 10, hemoglobin 11, hematocrit 36, platelets 380. Coags within normal. Sodium 136, potassium 4.2, chloride 105, carbon dioxide 12, BUN ___, creatinine 1, baseline 0.9, calcium 9.6. X-ray: Right femoral neck fracture. ASSESSMENT AND PLAN: 1. Acute right femoral neck fracture: mechanical fall. Dr. Nikkie hainesform surgery tomorrow. NPO midnight. Pain control with scheduled Tylenol, low-dose opioid if needed. 2. Atrial arrhythmia: CHADS-VASc score of 5. Hold the Eliquis with surgery. Continue metoprolol. 3. Accelerated hypertension: SBPs 180s. Elevated with pain. Resume home medications. 4. History of diverticulitis: No abdominal pain. 5. Coronary artery disease: positive calcium score. Evaluated by Cardiology last admission, medical management. Lopid, Zetia, and beta-oscar. 6. Diet: NPO 7. Deep vein thrombosis prophylaxis: Sequential compression devices. DISPOSITION: Inpatient admission given acute femoral neck fracture requiring repair, telemetry, and PT/OT. /[id number]/MODL MTDD
[2018-08-28] MEDS: SENNOSIDES/DOCUSATE SODIUM TAB PO SCH (20:31)
[2018-08-28] MEDS ORDERED: NS 1,000 ML IV SCH (22:00)
[2018-08-28] MEDS ORDERED: hydrALAZINE 20 MG/ML VIAL IVP PRN (22:00)
[2018-08-29] MEDS: GABAPENTIN 100 MG CAP PO SCH ×3 (00:13→16:43)
[2018-08-29] MEDS: oxyCODONE IR 5 MG TAB PO PRN ×3 (00:14→14:35)
--- NOTE | 2018-08-29 05:18 | PDIAF ---
- Diagnosis Diagnosis: right femoral neck fx Code Status: Full Code - Medication Management Discharge Medications: electronically signed and located in the Home Medication List. - Orders Services needed: Physical Therapy Diet Recommendation: no restrictions on diet Diet Texture: Regular Texture Diet Additional Instructions: anterior hip precautions wbat right lower ext keep dressing clean, dry and intact may shower over dressing replace dressing if it becomes saturated no soaking or immersion f/u at two weeks seek attn for increasing pain, redness, drainage, discharge - Follow Up Care Current Providers and Referrals: MOMO LANDAVERDE [Primary Care Provider] - As per Instructions Dominic Lundy MD [Medical Doctor] -
[2018-08-29] MEDS: ACETAMINOPHEN 500 MG TAB PO SCH ×2 (06:03→14:05)
--- NOTE | 2018-08-29 06:30 | GCON ---
[f rep st] CONSULTATION CHIEF COMPLAINT: Right hip pain. HISTORY OF PRESENT ILLNESS: The patient is an 78-year-old woman with a past medical history of atria l fibrillation on anticoagulation therapy. She also has a chronic history of sciatica. She had rece ntly stopped her Eliquis with a planned spinal injection. However, she fell yesterday while walking in the kitchen. She complained of immediate pain to her right hip, inability to ambulate. She was b rought to the emergency department for further evaluation. She also did admit to striking her head. She has pain across her right hip. No other current complaints. PAST MEDICAL HISTORY: Depression, atrial fibrillation, diverticulitis. PAST SURGICAL HISTORY: Hysterectomy, spinal fusion, left knee replacement, and left femoral neck fra cture with percutaneous screw placement. OBJECTIVE: GENERAL: This is a healthy woman lying supine in the bed with no acute distress. Her da ughter is present at the bedside. VITAL SIGNS: Blood pressure is 164/95, pulse is 65, respiratory r ate is 18, 92% on room air, 36.6 is her temperature. HEENT: Normocephalic. UPPER EXTREMITIES: Sudeep ateral upper extremities are unremarkable. There is no focal tenderness. Gross crepitus, step-off, or deformity. LOWER EXTREMITIES: Right hip is shortened. She has pain with any movement to her rig ht lower extremity. She has no tenderness over the left lower extremity. Bilateral femur, knee, low er extremities into her foot and ankle. She has well-healed surgical incision over the left knee con sistent with previous knee replacement as above. She has intact ankle plantar flexion, dorsiflexion. Sensation is intact to light touch throughout the lower extremities. RADIOGRAPHS: Demonstrate a right femoral neck fracture with displacement. There are percutaneous sc rews in the left femoral neck from previous ORIF and spinal hardware evident. IMPRESSION: Right femoral neck fracture. TREATMENT PLAN: Given her age, fracture characteristics, I have recommended right hip replacement. I have outlined the surgical procedure, risks, benefits, and alternatives. She wished to proceed. Fidel parada consent will be signed and placed in patient's chart. She will continue with medical workup p reoperatively today and we will proceed this afternoon with operative stabilization. /[id number]/MODL
[2018-08-29] MEDS: buPROPion SR 150 MG TAB PO SCH (09:01)
[2018-08-29] MEDS: CALCIUM CARBONATE 500 MG TAB PO SCH (09:01)
[2018-08-29] MEDS: METOPROLOL TARTRATE 25 MG TAB PO SCH (09:01)
[2018-08-29] MEDS: SENNOSIDES/DOCUSATE SODIUM TAB PO SCH (09:01)
[2018-08-29] MEDS: EZETIMIBE 10 MG TAB PO SCH (09:01)
[2018-08-29] MEDS: GEMFIBROZIL 600 MG TAB PO SCH ×2 (09:01→16:43)
--- NOTE | 2018-08-29 09:39 | PDMN ---
Medical Necessity Medical necessity: Pt meets inpt criteria per MD order and [facility] [id number], Hip Fracture, open repair, 3 days, 78 y/o admitted w/acute R femoral neck fx after fall, ortho consult: plan for hip replacement surgery today. PMHx includes atrial arrhythmia- on Eliquis, chronic back pain, HTN, diverticulitis, and CAD. Est LOS>2MN for pending surgery and post-op care.
--- NOTE | 2018-08-29 11:19 | HOSPPROG ---
Hospitalist Progress Note Assessment/Plan: 78y female with fall. C/O hip pain. First encounter, chart reviewed. #Acute right femoral fracture -to OR today #Pain -added IV Morphine #Atrial arrhythmia -hold eliquis -cont lopressor #Chronic back pain -eliquis was on hold for scheduled spine injection today -should consider injection prior to DC form hospital -after surgery #HX diverticulitis -stable #CAD -cont home meds #Dispo -unclear -to OR today -will need SNF Subjective: Pain better. Was having significant pain thsi am. No other issues. Objective: Vital Signs Temp Pulse Resp BP Pulse Ox 36.7 C 65 18 164/95 H 93 08/29/18 08:00 08/29/18 09:01 08/29/18 08:00 08/29/18 09:01 08/29/18 08:00 08/28/18 08/29/18 08/30/18 05:59 05:59 05:59 Output Total 1600 Balance -1600 PT 14.0 SEC (12.0-15.0) 08/28/18 17:30 INR 1.12 (0.83-1.16) 08/28/18 17:30 - Physical Exam Constitutional: no apparent distress, appears nourished, No obese Eyes: PERRL, anicteric sclera, EOMI Ears, Nose, Mouth, Throat: moist mucous membranes, hearing normal, ears appear normal Cardiovascular: No JVD, No tachycardia, No edema Respiratory: no respiratory distress, no rales or rhonchi, reduced air movement Gastrointestinal: normoactive bowel sounds, No tenderness, No ascites Skin: warm, normal color, No mottled Musculoskeletal: no joint effusions, joint tenderness, pain with ROM, generalized weakness Neurologic: AAOx3 Psychiatric: interacting appropriately, not anxious, not encephalopathic, thought process linear ICD10 Worksheet Patient Problems: Problems Problem Status Onset Diverticulitis Acute Fracture of femoral neck, right, closed Acute
--- NOTE | 2018-08-29 14:03 | ASMTCMCOM ---
CM Note CM Note Notes: Reviewed chart, pt admitted for hip fracture. Will go to OR today, lives at home with . PT eval pending, CM will follow. DC Plan: TBD Date Signed: 08/29/2018 02:02 PM Electronically Signed By:Gia Casey RN
[2018-08-29] MEDS ORDERED: ceFAZolin 2 GM/DEXTROSE 100 ML IV ONE (18:00)
[2018-08-29] MEDS ORDERED: PROPOFOL 200 MG/20 ML VIAL ONE (20:06)
[2018-08-29] MEDS ORDERED: LIDOCAINE 2% 5 ML SDV ONE (20:06)
[2018-08-29] MEDS ORDERED: PROPOFOL/EMULSION 500 MG/50 ML BOTTLE IV ONE ×2 (20:07)
[2018-08-29] MEDS ORDERED: BUPIVACAINE/DEXTROSE 7.5MG/ML 2 ML SPINAL AMP SP ONE (20:09)
[2018-08-29] MEDS ORDERED: ceFAZolin 1 GM/5 ML SYR ONE (20:57)
[2018-08-29] MEDS ORDERED: ONDANSETRON 4 MG/2 ML VIAL ONE (21:01)
[2018-08-29] MEDS ORDERED: SUGAMMADEX SODIUM 200 MG/2 ML VIAL IVP ONE (21:01)
[2018-08-29] MEDS ORDERED: DEXAMETHASONE 4 MG/ML VIAL ONE (21:01)
[2018-08-29] MEDS ORDERED: ROCURONIUM 50 MG/5 ML VIAL ONE (21:01)
--- NOTE | 2018-08-29 21:15 | POSTANESTH ---
Post Anesthetic Evaluation Cardiovascular Status: Normal, Stable Respiratory Status: Normal, Stable Level of Consciousness/Mental Status: Can Participate in Eval Pain Control: Adequate, Prn Tx Ordered Nausea/Vomiting Control: Adequate, Prn Tx Ordered Complications Possibly Related to Anesthesia: None Noted
--- NOTE | 2018-08-29 21:15 | PDANEPAE ---
ANE Past Medical History - Cardiovascular History Hx Hypertension: No Hx Arrhythmias: Yes Hx Chest Pain: No Hx Coronary Artery / Peripheral Vascular Disease: No Hx CHF / Valvular Disease: No Hx Palpitations: No Cardiovascular History Comment: atrial arrhythmia - Pulmonary History Hx COPD: No Hx Asthma/Reactive Airway Disease: No Hx Recent Upper Respiratory Infection: No Hx Oxygen in Use at Home: No Hx Sleep Apnea: No Sleep Apnea Screening Result - Last Documented: Negative - Neurologic History Hx Cerebrovascular Accident: No Hx Seizures: No Hx Dementia: No Neurologic History Comment: mild memory impairment since sepsis - Endocrine History Hx Diabetes: No - Renal History Hx Renal Disorders: Yes Renal History Comment: Hx UTI - Liver History Hx Hepatic Disorders: No - Neurological & Psychiatric Hx Hx Neurological and Psychiatric Disorders: Yes Neurological / Psychiatric History Comment: depression, anxiety - Cancer History Hx Cancer: No - Congenital Disorder History Hx Congenital Disorders: No - GI History Hx Gastrointestinal Disorders: Yes Gastrointestinal History Comment: hx diverticulitis - Other Health History Other Health History: wears glasses. hearing loss in left ear. bruises easily. chronic low back pain - Chronic Pain History Chronic Pain: Yes (low back) - Surgical History Prior Surgeries: left TKA. left femur fx repair. L3-5 fusion ANE Review of Systems Review of Systems: ANE Patient History - Allergies Allergies/Adverse Reactions: Mmwnfvg-Tsu-Csr Reductase Inhibitor Allergy (Verified 08/28/18 17:28) Other-Enter Comments Sulfa (Sulfonamide Antibiotics) Allergy (Verified 08/28/18 17:28) Other-Enter Comments - Home Medications Home Medications: Ezetimibe [Zetia 10 MG (*)] 10 mg PO DAILY 09/19/17 [Last Taken 08/28/18] Gemfibrozil [Lopid 600 MG (*)] 600 mg PO BIDAC 09/19/17 [Last Taken 08/28/18] Apixaban [Eliquis] 5 mg PO DAILY 04/01/18 [Last Taken 08/27/18] Gabapentin [Neurontin 100 MG (*)] 100 mg PO TID 04/01/18 [Last Taken 08/28/18 15 :00] Acetaminophen [Tylenol 325mg (*)] 325 mg PO DAILY PRN 04/02/18 [Last Taken Unknown] Calcium Carbonate [Oyster Shell Calcium 500 mg (*)] 500 mg PO DAILY 04/02/18 [ Last Taken 08/28/18] buPROPion SR [Wellbutrin 150mg SR (*)] 150 mg PO BID 04/02/18 [Last Taken ] Metoprolol Tartrate [Lopressor 25 mg (*)] 12.5 mg PO BID 08/28/18 [Last Taken 09:00] - NPO status NPO Since - Liquids (Date): 08/29/18 NPO Since - Liquids (Time): 00:00 NPO Since - Solids (Date): 08/29/18 NPO Since - Solids (Time): 00:00 - Smoking Hx Smoking Status: Never smoked - Family Anes Hx Family Hx Anesthesia Complications: none ANE Labs/Vital Signs - Labs Result Diagrams: 08/28/18 17:30 08/28/18 17:30 - Vital Signs Blood Pressure: 166/101 Heart Rate: 78 Respiratory Rate: 16 O2 Sat (%): 93 Height: 165.1 cm Weight: 65.771 kg ANE Physical Exam - Airway Neck exam: FROM Mallampati Score: Class 2 Mouth exam: normal dental/mouth exam - Pulmonary Pulmonary: no respiratory distress, no rales or rhonchi, clear to auscultation - Cardiovascular Cardiovascular: regular rate and rhythym, no murmur, rub, or gallop - ASA Status ASA Status: II ANE Anesthesia Plan Anesthesia Plan: general endotracheal anesthesia
[2018-08-29] MEDS ORDERED: LR 500 ML IV PRN (21:16)
[2018-08-29] MEDS ORDERED: NS 500 ML IV PRN (21:16)
[2018-08-29] MEDS ORDERED: NALOXONE HCL 0.4 MG/ML INJ IVP PRN (21:16)
[2018-08-29] MEDS ORDERED: fentaNYL 100 MCG/2 ML INJ IVP PRN (21:16)
[2018-08-29] MEDS ORDERED: PHENYLEPHRINE HCL 100 MCG/ML SYR IVP PRN (21:16)
[2018-08-29] MEDS ORDERED: PROMETHAZINE HCL 25 MG/ML INJ IVP PRN (21:16)
[2018-08-29] MEDS ORDERED: ALBUTEROL 3 ML DEYVIAL IH PRN (21:16)
[2018-08-29] MEDS ORDERED: HYDROmorphONE/DILAUDID 1 MG/ML INJ IVP PRN (21:16)
[2018-08-29] MEDS ORDERED: MEPERIDINE 25 MG/0.5 ML AMP IVP PRN (21:16)
[2018-08-29] MEDS ORDERED: HYDROCODONE/APAP 5/325 TAB PO PRN (21:16)
[2018-08-29] MEDS ORDERED: METOCLOPRAMIDE 10 MG/2 ML VIAL IVP PRN (21:16)
[2018-08-29] MEDS ORDERED: ROPI/epINEPH/KETOROLAC/morphINE IU ONE (22:00)
[2018-08-29] MEDS ORDERED: DIPHENOXYLATE/ATROPINE LOMOTIL 1 TAB PO PRN (22:21)
--- NOTE | 2018-08-29 22:21 | POSTOPPROG ---
Post Op Note Date of Operation: 08/29/18 Surgeon: Dominic Lundy Seamer Elastic Band: fabi Anesthesiologist: ray Anesthesia: GET(General Endotracheal) Pre-op Diagnosis: right femoral neck fx Post-op Diagnosis: same Indication: same Procedure: right martir Inf/Abcess present in the surg proc area at time of surgery?: No Depth: Deep Incisional (Fascial) EBL: 100-500 Drains: Hemovac
[2018-08-29] MEDS ORDERED: fentaNYL 100 MCG/2 ML INJ ONE ×2 (22:31→23:09)
[2018-08-30] MEDS: buPROPion SR 150 MG TAB PO SCH ×3 (00:38→22:03)
[2018-08-30] MEDS: GABAPENTIN 100 MG CAP PO SCH ×4 (00:39→22:03)
[2018-08-30] MEDS: SENNOSIDES/DOCUSATE SODIUM TAB PO SCH ×3 (00:39→22:03)
[2018-08-30] MEDS: METOPROLOL TARTRATE 25 MG TAB PO SCH ×3 (00:39→22:03)
[2018-08-30] MEDS: FAMOTIDINE 20 MG TAB PO SCH ×3 (00:39→22:03)
[2018-08-30] MEDS: ACETAMINOPHEN 500 MG TAB PO SCH ×4 (00:39→22:03)
[2018-08-30] MEDS: TRANEXAMIC ACID 650 MG TAB PO SCH ×3 (05:55→22:02)
[2018-08-30] MEDS: ceFAZolin 2 GM/DEXTROSE 100 ML IV SCH ×2 (05:56→14:40)
--- NOTE | 2018-08-30 07:38 | GOP ---
[f rep st] OPERATIVE REPORT DATE OF OPERATION: 08/29/2018 SURGEON: Dominic Lundy MD COMBATANT SWIMMER: London Phillip, BUS TRANSPORTATION MANAGER, PANTOMIMIST, anesthesia assistant, who was a medical necessity for the entire ty of the case. PREOPERATIVE DIAGNOSIS: Right hip femoral neck fracture. POSTOPERATIVE DIAGNOSIS: Right hip femoral neck fracture. PROCEDURE PERFORMED: Right total hip arthroplasty. FINDINGS: SPECIMENS: To Pathology, the femoral head. ESTIMATED BLOOD LOSS: 200 cc. INDICATIONS: The patient is an 78-year-old woman who sustained a mechanical fall and right femoral n jack fracture. She had a displaced fracture. Given her age, fracture location, and characteristics, I recommended surgical stabilization with a total hip arthroplasty. I have outlined the surgical pro cedure, risks, benefits, and alternatives. She wishes to proceed. Appropriate consent was signed an d placed in patient's chart. DESCRIPTION OF PROCEDURE: The patient was identified in the preanesthesia area. The right hip clear ly demarcated as the operative site with indelible marker. She was given 2 g of Ancef intravenously in route to the operative suite. In the OR, general endotracheal anesthesia was administered. She w as positioned in the supine position. All bony prominences were well padded, including the use of fo am across bilateral upper extremities. The pelvis and both lower extremities were sterilely prepped and draped in the usual fashion. Appropriate time-out procedure was carried out. Attention was turn ed to the right hip. An anterior approach was made. Thick subcutaneous flaps were elevated, followe d by opening of the tensor fascia in the origin of its fibers. The tensor muscle was retracted later ally. The underlying vascular structures were cauterized and transected. The rectus elevated off th e anterior capsule. Retractors were placed in an extracapsular position. T capsulotomy was made. T he fracture was encountered from the anterior capsulotomy. A bony wedge was withdrawn with the oscil lating saw and osteotomes and the remaining head fragment and all loose bone fragments were withdrawn as well. The soft tissue remnants of the acetabulum were sharply excised. The acetabulum was reame d progressively to a 48 mm reamer on the location positioning which was confirmed under fluoroscopic evaluation. A 48 mm reamer acetabular shell was then placed and impacted, confirmed to be fully seat ed. A cancellous screw was placed through the superior portion of the cluster acetabular shell. A 0-degree X3 liner with 36 mm inner diameter was placed. Attention was turned to the femur. Soft tissue releases were carried out. The leg was brought into extension and the table extended a llowing visualization of the proximal canal. Serial broaching was carried out to a size 5 stem. Tri al reduction was carried out and ultimately a 36 mm +2.5 mm head was selected. This allowed restorat ion of leg lengths. Stability was excellent with an external rotation in full extension 90 degrees w ith subluxation. Intraoperative fluoroscopy was again used to confirm the position and location. Th e trial stem was withdrawn. The final stem was impacted. There was no fracture noted or created. A 36 mm +2.5 mm Biolox head was impacted across the cleansed trunnion. The hip was irrigated and redu rochelle. Stability profile was as previous and the leg lengths were equal. The tissue was then irrigate d with pulsatile lavage. Tissue was injected with a joint cocktail of ropivacaine, Toradol, and epin ephrine. The 10-Montserratian PVC drain was placed. The fascia was closed using 0 Vicryl, subcutaneous tis jairo using 2-0 Monocryl, and the skin stapled. A sterile compressive dressing was applied. The patie nt was awakened, extubated, taken to the recovery room in good, stable condition. TOTAL TOURNIQUET TIME: None. COMPLICATIONS: None. IMPLANTS: Trident II acetabular shell, 48 mm; a 0-degree X3 liner, 36 mm; biologic ceramic head, 36 mm +2.5 mm neck length; and an Accolade II 132 degree neck angle hip stem, size 5. DISPOSITION: To the recovery room, then the floor. She will follow standard postop total hip recove ry. /[id number]/MODL
[2018-08-30] MEDS: CALCIUM CARBONATE 500 MG TAB PO SCH (08:09)
[2018-08-30] MEDS: GEMFIBROZIL 600 MG TAB PO SCH ×2 (08:09→18:21)
[2018-08-30] MEDS: EZETIMIBE 10 MG TAB PO SCH (08:09)
--- NOTE | 2018-08-30 10:23 | SOAPPROG ---
SOAP Progress Note Assessment/Plan: Assessment: Right femoral neck fracture s/p right CHUCK, anterior approach - POD 1 - Dr. Lundy Anemia - expected initially post-op. Asymptomatic. Continue to monitor Plan: Begin d/c planning - patient states she lives independently in her own home with her . She would prefer to go back home instead of rehab; she had a bad experience in the past at a rehab. She is open to home health/PT. Continue oral pain medication Continue VTE ppx- SCDs, DANII allen. Awaiting hospital medicine's recommendation on anticoagulation. She was on Eliquis 5mg PO once daily prior to hospital admission Informed patient that she should call Dr. Burks to reschedule KWADWO Subjective: Patient states she has no pain in the right hip. She reports living alone with her in their own home. Patient would prefer to go home once she is discharged. She went to rehab in the past after another medical issue and had a bad experience. Patient would be open to having home health/PT. Patient was on Eliquis 5 mg once daily for a fib prior to hospital admission. She discontinued it a couple days ago because she was suppose to have lumbar KWADWO. She denies SOB , CP, fever and chills. Objective: Vital Signs Temp Pulse Resp BP Pulse Ox 36.6 C 95 16 113/71 99 08/30/18 07:29 08/30/18 08:10 08/30/18 07:29 08/30/18 08:10 08/30/18 07:29 Laboratory Results 08/30/18 04:37 08/29/18 08/30/18 08/31/18 05:59 05:59 05:59 Intake Total 500 100 Output Total 1600 570 50 Balance -1600 -70 50 PT 14.0 SEC (12.0-15.0) 08/28/18 17:30 INR 1.12 (0.83-1.16) 08/28/18 17:30 Patient resting comfortably in bed, no acute distress. Her daughter is present at the bed side. Wound dressings are on right forearm for skin tear. RLE: Wound dressings are clean, dry and intact. Skin intact, no erythema, purulent drainage or signs of infection. Lower leg compartments are soft and nontender. Negative Homans sign. She can actively DF and PF her right foot and great toe against resistance. Grossly NVI distally. ICD10 Worksheet Patient Problems: Problems Problem Status Onset Fracture of femoral neck, right, closed Acute Diverticulitis Acute
--- NOTE | 2018-08-30 13:52 | ASMTCMCOM ---
CM Note CM Note Notes: CM advised pt's daughter Laura that [facility] has accepted her. (Pt is sleeping.) Date Signed: 08/30/2018 01:50 PM Electronically Signed By:Margret Montesinos
--- NOTE | 2018-08-30 14:06 | HOSPPROG ---
Hospitalist Progress Note Assessment/Plan: Atiya is an 78y female with fall. C/O hip pain. First encounter, chart reviewed. #Acute right femoral fracture -s/p right hip arthroplasty #Pain -added IV Morphine #Atrial arrhythmia -resumed Eliquis -cont Lopressor (will decrease this dose due to hypotension) -patient has a FABIEN-Vasc score of 5 -she alos has valvular heart disease and moderate MR #Chronic back pain -not c/o of this, would need an MRI to get an injection #HX diverticulitis -stable #CAD -cont home meds #Hypotension -will give a fluid bolus now -affected her ability to get oob #dvt prophylaxis: Eliquis resumed #plan: check labs in the a.m. Subjective: Rashida is feeling fine overall, said she got lightheaded when getting up this morning. Objective: Vital Signs Temp Pulse Resp BP Pulse Ox 36.7 C 78 19 103/62 90 L 08/30/18 11:36 08/30/18 11:36 08/30/18 11:36 08/30/18 11:36 08/30/18 11:36 Laboratory Results 08/30/18 04:37 08/29/18 08/30/18 08/31/18 05:59 05:59 05:59 Intake Total 500 100 Output Total 1600 570 50 Balance -1600 -70 50 PT 14.0 SEC (12.0-15.0) 08/28/18 17:30 INR 1.12 (0.83-1.16) 08/28/18 17:30 - Physical Exam Constitutional: chronically ill appearing Eyes: PERRL Ears, Nose, Mouth, Throat: hearing normal Cardiovascular: regular rate and rhythym, systolic murmur Respiratory: no respiratory distress Skin: warm, other (mulitple bruising, ecchymosis on her right hand, right upper arm, areas on left forearm) Musculoskeletal: generalized weakness Neurologic: AAOx3 Psychiatric: interacting appropriately ICD10 Worksheet Patient Problems: Problems Problem Status Onset Fracture of femoral neck, right, closed Acute Diverticulitis Acute
[2018-08-30] MEDS: APIXABAN 5 MG TAB PO SCH (16:13)
[2018-08-30] MEDS ORDERED: NS 500 ML IV ONE (16:15)
[2018-08-30] MEDS ORDERED: NS BOLUS 500 ML (Wide open) IV ONE (21:00)
[2018-08-31] MEDS: ACETAMINOPHEN 500 MG TAB PO SCH ×3 (05:57→23:35)
--- NOTE | 2018-08-31 06:54 | SOAPPROG ---
SOAP Progress Note Assessment/Plan: Assessment: s/p martir Plan:continue mobilization with pt/ot dvt precautions will need snf dc/ when cleared 08/31/18 06:53 Subjective: min complaints no cp or sob min pain Objective: Vital Signs Temp Pulse Resp BP Pulse Ox 37.0 C 77 16 109/61 94 08/31/18 04:00 08/31/18 04:00 08/31/18 04:00 08/31/18 04:00 08/31/18 04:00 Laboratory Results 08/31/18 05:02 08/31/18 05:02 08/30/18 08/31/18 09/01/18 05:59 05:59 05:59 Intake Total 500 2075 Output Total 570 1150 Balance -70 925 PT 14.0 SEC (12.0-15.0) 08/28/18 17:30 INR 1.12 (0.83-1.16) 08/28/18 17:30 dressing intact INTACTpf,df,ehl chester neg homans chester xrays anatomic alignement no fx or lucency ICD10 Worksheet Patient Problems: Problems Problem Status Onset Fracture of femoral neck, right, closed Acute Diverticulitis Acute
--- NOTE | 2018-08-31 10:21 | HOSPPROG ---
Hospitalist Progress Note Assessment/Plan: Atiya is an 78y female with fall. C/O hip pain. #Acute right femoral fracture -s/p right hip arthroplasty #Pain -doing well overall with the above #Atrial arrhythmia -resumed Eliquis -cont Lopressor (will decrease this dose due to hypotension) -patient has a FABIEN-Vasc score of 5 -she alos has valvular heart disease and moderate MR #anemia -follow #Chronic back pain -not c/o of this, would need an MRI to get an injection #renal insufficiency -suspect this is due to ATN -will dc any nephrotoxic meds -Eliquis to be changed to 2.5 mg bid #HX diverticulitis -stable #CAD -cont home meds #Hypotension -will give a fluid bolus now -affected her ability to get oob #dvt prophylaxis: Eliquis resumed #plan:recheck kidney function in a.m. Subjective: Rashida is feeling fine today, was able to get oob with assist. Objective: Vital Signs Temp Pulse Resp BP Pulse Ox 36.4 C 79 15 114/65 91 L 08/31/18 08:00 08/31/18 08:00 08/31/18 08:00 08/31/18 08:00 08/31/18 08:00 Laboratory Results 08/31/18 05:02 08/31/18 05:02 08/30/18 08/31/18 09/01/18 05:59 05:59 05:59 Intake Total 500 2075 Output Total 570 1150 Balance -70 925 PT 14.0 SEC (12.0-15.0) 08/28/18 17:30 INR 1.12 (0.83-1.16) 08/28/18 17:30 - Physical Exam Constitutional: not in pain, chronically ill appearing Eyes: PERRL Ears, Nose, Mouth, Throat: hearing normal Cardiovascular: regular rate and rhythym Gastrointestinal: normoactive bowel sounds Skin: warm Musculoskeletal: generalized weakness Neurologic: AAOx3 Psychiatric: interacting appropriately ICD10 Worksheet Patient Problems: Problems Problem Status Onset Fracture of femoral neck, right, closed Acute Diverticulitis Acute
[2018-08-31] MEDS: GEMFIBROZIL 600 MG TAB PO SCH ×2 (11:08→16:23)
[2018-08-31] MEDS: SENNOSIDES/DOCUSATE SODIUM TAB PO SCH ×2 (11:08→21:28)
[2018-08-31] MEDS: EZETIMIBE 10 MG TAB PO SCH (11:09)
[2018-08-31] MEDS: METOPROLOL TARTRATE 25 MG TAB PO SCH ×2 (11:09→21:29)
[2018-08-31] MEDS: APIXABAN 5 MG TAB PO SCH (11:09)
[2018-08-31] MEDS: buPROPion SR 150 MG TAB PO SCH ×2 (11:09→21:28)
[2018-08-31] MEDS: GABAPENTIN 100 MG CAP PO SCH ×3 (11:09→21:28)
[2018-08-31] MEDS: CALCIUM CARBONATE 500 MG TAB PO SCH (11:09)
[2018-08-31] MEDS: FAMOTIDINE 20 MG TAB PO SCH ×2 (11:43→21:28)
[2018-08-31] MEDS: oxyCODONE IR 5 MG TAB PO PRN (16:26)
[2018-09-01] MEDS: ACETAMINOPHEN 500 MG TAB PO SCH ×3 (05:10→22:01)
--- NOTE | 2018-09-01 08:43 | HOSPPROG ---
Hospitalist Progress Note Assessment/Plan: Atiya is an 78y female with fall. C/O hip pain. #Acute right femoral fracture -s/p right hip arthroplasty #Pain -doing well overall with the above #Atrial arrhythmia -resumed Eliquis -cont Lopressor (will decrease this dose due to hypotension) -patient has a FABIEN-Vasc score of 5 -she has valvular heart disease and moderate MR -reviewed telemetry and she has been in sinus w few PAC's #anemia -follow #Chronic back pain -not c/o of this, would need an MRI to get an injection #renal insufficiency -suspect this is due to ATN -improved #HX diverticulitis -stable #CAD -cont home meds #Hypotension -will give a fluid bolus now -affected her ability to get oob #dvt prophylaxis: Eliquis resumed #plan:dc to [facility] Subjective: Rashida is feeling fine overall. Objective: Vital Signs Temp Pulse Resp BP Pulse Ox 36.6 C 79 17 117/60 97 09/01/18 08:00 09/01/18 08:00 09/01/18 08:00 09/01/18 08:00 09/01/18 08:00 Laboratory Results 08/31/18 05:02 09/01/18 04:56 08/31/18 09/01/18 09/02/18 05:59 05:59 05:59 Intake Total 2075 Output Total 1150 1300 Balance 925 -1300 PT 14.0 SEC (12.0-15.0) 08/28/18 17:30 INR 1.12 (0.83-1.16) 08/28/18 17:30 - Physical Exam Constitutional: appears nourished Eyes: PERRL Ears, Nose, Mouth, Throat: hearing normal Cardiovascular: regular rate and rhythym Respiratory: no respiratory distress Gastrointestinal: normoactive bowel sounds Skin: warm Musculoskeletal: generalized weakness Neurologic: AAOx3 Psychiatric: interacting appropriately ICD10 Worksheet Patient Problems: Problems Problem Status Onset Fracture of femoral neck, right, closed Acute Diverticulitis Acute
[2018-09-01] MEDS ORDERED: APIXABAN 2.5 MG TAB PO SCH (09:00)
--- NOTE | 2018-09-01 09:51 | PDIAF ---
- Diagnosis Diagnosis: right femoral neck fx Code Status: Full Code - Medication Management Discharge Medications: electronically signed and located in the Home Medication List. - Orders Services needed: Physical Therapy Diet Recommendation: no restrictions on diet Diet Texture: Regular Texture Diet Additional Instructions: anterior hip precautions wbat right lower ext keep dressing clean, dry and intact may shower over dressing replace dressing if it becomes saturated no soaking or immersion f/u at two weeks seek attn for increasing pain, redness, drainage, discharge Metoprolol dose was decreased from 12.5 mg bid to 6.25 mg bid due to hypotension can resume her regular dose once she has steady blood pressure readings Rashida take Eliquis 5 mg daily, the standard dose is BID she should discuss this w her coordinate measuring machine programmer - Labs/Radiology BMP Date: 09/05/18 HCT/HGB Date: 09/05/18 - Follow Up Care Current Providers and Referrals: MOMO LANDAVERDE [Primary Care Provider] - As per Instructions Dominic Lundy MD [Medical Doctor] -
[2018-09-01] MEDS: METOPROLOL TARTRATE 25 MG TAB PO SCH ×2 (11:18→21:58)
[2018-09-01] MEDS: GEMFIBROZIL 600 MG TAB PO SCH ×2 (11:18→18:02)
[2018-09-01] MEDS: EZETIMIBE 10 MG TAB PO SCH (11:18)
[2018-09-01] MEDS: APIXABAN 5 MG TAB PO SCH ×2 (11:18→21:58)
[2018-09-01] MEDS: CALCIUM CARBONATE 500 MG TAB PO SCH (11:18)
[2018-09-01] MEDS: GABAPENTIN 100 MG CAP PO SCH ×3 (11:18→22:01)
[2018-09-01] MEDS: SENNOSIDES/DOCUSATE SODIUM TAB PO SCH ×2 (11:19→22:40)
[2018-09-01] MEDS: buPROPion SR 150 MG TAB PO SCH ×2 (11:19→22:01)
--- NOTE | 2018-09-01 12:29 | GDS ---
[f rep st] DISCHARGE SUMMARY DISCHARGE DIAGNOSES: 1. Acute right femoral fracture. 2. Atrial arrhythmia. 3. Anemia. 4. Chronic back pain. 5. Renal insufficiency. 6. History of diverticulitis. 7. Coronary artery disease. 8. Hypertension. CONSULTATION: Dr. Lundy. HISTORY: Briefly, the patient is an 78-year-old woman with atrial arrhythmia, on Eliquis; chronic back pain; and hypertension, who presented after a fall. She was changing position in the kitchen, did not see her bending over the cupboard, tripped over his leg. She landed on her right side and immediately developed severe pain. She was admitted and she was noted to have an acute right femoral neck fracture. She had surgery with Dr. Lundy and had a right hip arthroplasty. She has done very well in the postop setting. The plan is for her to be discharged to [facility] for strengthening. HOSPITAL COURSE: 1. Acute right femoral fracture. She is status post right hip arthroplasty. 2. Atrial arrhythmia. Resumed her Eliquis. She has been taking 5 mg p.o. daily at home. I reviewed her shelter monitor. She has been in sinus rhythm with a few PACs. In addition, her beta oscar dose has been decreased due to an episode of hypotension. 3. Anemia, stable. 4. Chronic pain. She has not complained of this. 5. Renal insufficiency, resolved. Suspect this was due to ATN. 6. History of diverticulitis. No complaints. 7. Coronary disease. Home medications will continue. 8. Hypotension, resolved. DISCHARGE CONDITION: Stable. PHYSICAL EXAMINATION: VITAL SIGNS: Blood pressure is 117/60, heart rate is 79 , respiratory rate is 17, O2 saturation on 2 L is 97%, temperature is 36.6 Celsius. MEDICATIONS AT DISCHARGE: Please see the EMR. DISCHARGE INSTRUCTIONS: 1. Anterior hip precautions. 2. Weightbearing as tolerated to her right lower extremity. 3. Follow up with Dr. Lundy in 2 weeks. 4. Metoprolol dose was decreased from 12.5 mg b.i.d. to 6.25 mg. 5. The patient has been on Eliquis 5 mg daily. I spoke with [facility] and the recommendation is 5 mg BID. This was changed prior to her discharge. Greater than 30 minutes discharging and coordinating her care. /[id number]/MODL MTDD
[2018-09-01] MEDS: FAMOTIDINE 20 MG TAB PO SCH (21:58)
[2018-09-02] MEDS: ACETAMINOPHEN 500 MG TAB PO SCH ×2 (05:54→15:35)
--- NOTE | 2018-09-02 06:24 | SOAPPROG ---
SOAP Progress Note Assessment/Plan: Assessment: s/p martir Plan:continue mobilization with pt/ot dvt precautions will need snf dc/ when cleared f/u at two weeks 08/31/18 06:53 09/02/18 06:23 Subjective: improving slight thigh pain no cp or sob Objective: Vital Signs Temp Pulse Resp BP Pulse Ox 36.6 C 81 16 116/66 94 09/01/18 22:45 09/01/18 21:58 09/01/18 22:45 09/01/18 21:58 09/01/18 22:45 Laboratory Results 08/31/18 05:02 09/01/18 04:56 09/01/18 09/02/18 09/03/18 05:59 05:59 05:59 Intake Total 300 Output Total 1300 350 Balance -1300 -50 PT 14.0 SEC (12.0-15.0) 08/28/18 17:30 INR 1.12 (0.83-1.16) 08/28/18 17:30 dressing intact intact pfdf, ehl toes warm and pink neg homans chester ICD10 Worksheet Patient Problems: Problems Problem Status Onset Fracture of femoral neck, right, closed Acute Diverticulitis Acute
[2018-09-02 08:34] VITALS: BP 139/75
[2018-09-02] MEDS: EZETIMIBE 10 MG TAB PO SCH (08:59)
[2018-09-02] MEDS: APIXABAN 5 MG TAB PO SCH (09:01)
[2018-09-02] MEDS: METOPROLOL TARTRATE 25 MG TAB PO SCH (09:01)
[2018-09-02] MEDS: GEMFIBROZIL 600 MG TAB PO SCH (09:01)
[2018-09-02] MEDS: GABAPENTIN 100 MG CAP PO SCH ×2 (09:01→15:35)
[2018-09-02] MEDS: buPROPion SR 150 MG TAB PO SCH (09:01)
[2018-09-02] MEDS: CALCIUM CARBONATE 500 MG TAB PO SCH (09:01)
[2018-09-02] MEDS: SENNOSIDES/DOCUSATE SODIUM TAB PO SCH (09:07)
--- NOTE | 2018-09-02 10:42 | HOSPPROG ---
Hospitalist Progress Note Assessment/Plan: Atiya is an 78y female with fall. C/O hip pain. #Acute right femoral fracture -s/p right hip arthroplasty #Pain -doing well overall with the above #Atrial arrhythmia -resumed Eliquis -cont Lopressor (will decrease this dose due to hypotension) -patient has a FABIEN-Vasc score of 5 -she has valvular heart disease and moderate MR -reviewed telemetry and she has been in sinus w few PAC's #anemia -follow #Chronic back pain -not c/o of this, would need an MRI to get an injection #renal insufficiency -suspect this is due to ATN -improved #HX diverticulitis -stable #CAD -cont home meds #Hypotension -resolved #dvt prophylaxis: Eliquis resumed #plan:dc to [facility] Subjective: Rashida is having some ongoing back pain. Objective: Vital Signs Temp Pulse Resp BP Pulse Ox 36.3 C 71 16 139/75 H 97 09/02/18 08:00 09/02/18 08:00 09/02/18 08:00 09/02/18 08:00 09/02/18 08:00 Laboratory Results 08/31/18 05:02 09/01/18 04:56 09/01/18 09/02/18 09/03/18 05:59 05:59 05:59 Intake Total 300 Output Total 1300 350 Balance -1300 -50 PT 14.0 SEC (12.0-15.0) 08/28/18 17:30 INR 1.12 (0.83-1.16) 08/28/18 17:30 - Physical Exam Constitutional: chronically ill appearing, uncomfortable Eyes: PERRL Ears, Nose, Mouth, Throat: hearing normal Cardiovascular: regular rate and rhythym Respiratory: no respiratory distress, reduced air movement Skin: warm, other (right hip w swelling) Musculoskeletal: generalized weakness Neurologic: AAOx3 Psychiatric: interacting appropriately ICD10 Worksheet Patient Problems: Problems Problem Status Onset Fracture of femoral neck, right, closed Acute Diverticulitis Acute
--- NOTE | 2018-09-02 11:39 | PDIAF ---
- Diagnosis Diagnosis: right femoral neck fx Code Status: Full Code - Medication Management Discharge Medications: electronically signed and located in the Home Medication List. - Orders Services needed: Physical Therapy Diet Recommendation: no restrictions on diet Diet Texture: Regular Texture Diet Additional Instructions: anterior hip precautions wbat right lower ext keep dressing clean, dry and intact may shower over dressing replace dressing if it becomes saturated no soaking or immersion f/u at two weeks seek attn for increasing pain, redness, drainage, discharge Metoprolol dose was decreased from 12.5 mg bid to 6.25 mg bid due to hypotension can resume her regular dose once she has steady blood pressure readings I spoke with Cardiology. The recommendation is for her to be on Eliquis 5 mg p. O. Twice daily - Labs/Radiology BMP Date: 09/05/18 HCT/HGB Date: 09/05/18 - Follow Up Care Current Providers and Referrals: MOMO LANDAVERDE [Primary Care Provider] - As per Instructions Dominic Lundy MD [Medical Doctor] -
--- NOTE | 2018-09-02 12:34 | ASMTDCNOTE ---
Case Management Discharge Discharge Order Complete? Answers: Yes Patient to Obtain Answers: Other Notes: SNF Medications Transportation Arranged Answers: Other Notes: wheelchair van from SNF Transport will Pick (Date 09/02/2018 03:30 PM & Time) Faxed Final Orders Answers: Yes Agency/Facility Transfer Answers: Yes Report Printed & Faxed to Receiving Agency Family Notified Answers: Yes Notes: left message for son Gr eg Discharge Comments Notes: Pt to discharge to [facility]. RN given number for RN report. No further CM needs noted at this time. Date Signed: 09/02/2018 12:32 PM Electronically Signed By:Karen Jo
--- NOTE | 2018-09-02 12:38 | ASDISCHSUM ---
Discharge Information Plan Status:SNF Medically Cleared to Leave:09/02/2018 Discharge Date:09/02/2018 CM D/C Disposition:Custodial Facility ADT D/C Disposition:Custodial Facility Projected Discharge Date:08/31/2018 11:00 AM Transportation at D/C:Wheelchair Van Discharge Delay Reason: Follow-Up Date:08/31/2018 11:00 AM Discharge Slot: Final Diagnosis:Hip Fracture Placement Information Referral Type:*Intermediate/SNF Referral ID:[id number] Provider Name:[facility] Address 1:[address] Address 2: City:[place] Selection Factors: State:[place] Patient Contact Information Contact Name:INDU Relationship: Address:[address] City:[place] Alternate Phone: State/Zip Code:[place] [address] Email: Financial Information Financial Class:Medicare Advantage Plans Primary Plan Desc:GREG MEDICARE ADV Primary Plan Number:[id number] Secondary Plan Desc: Secondary Plan Number: Assessment Information LACE LACE Length of stay for Answers: 4-6 days current admission Acuity / Level of Answers: Yes Care: Did the patient have an inpatient admission? Comorbidities - select Answers: Coronary Artery Disease all that apply Opioid dependence / Chronic pain Other Notes: AFib; Diverticulitis # of Emergency department Answers: 1-2 visits in the last 6 months Social determinants Answers: Mental health diagnosis (anxiety, depression, pers onality disorders, etc.) Score: 18 Date Signed: 09/02/2018 12:35 PM Electronically Signed By:Karen Jo [facility] CM Progress Note CM Note CM Note Notes: Reviewed chart, pt admitted for hip fracture. Will go to OR today, lives at home with . PT eval pending, CM will follow. DC Plan: TBD Date Signed: 08/29/2018 02:02 PM Electronically Signed By:Gia Casey RN [facility] CM Progress Note CM Note CM Note Notes: CM advised pt's daughter Laura that [facility] has accepted her. (Pt is sleeping.) Date Signed: 08/30/2018 01:50 PM Electronically Signed By:Margret Montesinos Case Management Discharge Plan Note Case Management Discharge Discharge Order Complete? Answers: Yes Patient to Obtain Answers: Other Notes: SNF Medications Transportation Arranged Answers: Other Notes: wheelchair van from SNF Transport will Pick (Date 09/02/2018 03:30 PM & Time) Faxed Final Orders Answers: Yes Agency/Facility Transfer Answers: Yes Report Printed & Faxed to Receiving Agency Family Notified Answers: Yes Notes: left message for son Gr eg Discharge Comments Notes: Pt to discharge to [facility]. RN given number for RN report. No further CM needs noted at this time. Date Signed: 09/02/2018 12:32 PM Electronically Signed By:Karen Jo Intervention Information Intervention Type:*IM-Signed Date of Service:08/30/2018 03:06 PM Patient Type:Inpatient Staff Member:Becca Henning Hours: Discipline: Severity: Comment:
== END 2018-09-02 15:40 | DRG 469 ==
LOC: EDUNIT# → F3E 19:55 → F3N 08-29 19:44
PROVIDERS: ADMIT Internal Medicine; ATTEND Internal Medicine
PROC: 0SR904A Replacement of Right Hip Joint with Ceramic on Polyethylene Synthetic Substitute, Uncemented, Open Approach (ICD-10-PCS; principal; 2018-08-29 18:45)
DX: S72.011A Unspecified intracapsular fracture of right femur, initial encounter for closed fracture (principal); S51.801A Unspecified open wound of right forearm, initial encounter; W01.0XXA Fall on same level from slipping, tripping and stumbling without subsequent striking against object, initial encounter; Y92.010 Kitchen of single-family (private) house as the place of occurrence of the external cause; N17.0 Acute kidney failure with tubular necrosis; Y99.8 Other external cause status; I95.2 Hypotension due to drugs; T44.7X5A Adverse effect of beta-adrenoreceptor antagonists, initial encounter; I48.91 Unspecified atrial fibrillation; Z79.01 Long term (current) use of anticoagulants; M54.5 Low back pain; Z98.1 Arthrodesis status; D64.9 Anemia, unspecified; K57.30 Diverticulosis of large intestine without perforation or abscess without bleeding; I10 Essential (primary) hypertension; I25.10 Atherosclerotic heart disease of native coronary artery without angina pectoris; Z96.652 Presence of left artificial knee joint
CPT/HCPCS: 96374; 97116-GP; 97161-GP; 97166-GO; 97530-GP; 97535-GO; C1713; J0171; J0690; J1100; J1170; J1885; J2270; J2405; J2704; J2795; J3010

== ENCOUNTER 2018-09-17 11:35 | Inpatient (IN) | payer OTHER | END 2018-10-03 15:13 | disposition home health service (06) | LOC: F3E 15:44 ==